=== PATIENT | female | born 1995 | race American Indian/Alaskan Native ===

== ENCOUNTER 2020-07-22 19:56 | Emergency (ER) | payer OTHER ==
[~2020-07-22] VITALS: Ht 162.6 cm; Wt 113.4 kg
--- OUTSIDE RECORDS SUMMARY | ~2020-07-22 | XMS | Encounter Summary ---
Demographics + + + | Address | [address] | | | [place] [address] | + + + | Home Phone | | + + + | Preferred Language | Unknown | + + + | Marital Status | Single | + + + | Anglican Affiliation | Unknown | + + + | Race | or | + + + | Ethnic Group | Not or | + + + Author + + + | Author | [facility] | + + + | Organization | [facility] | + + + | Address | Unknown | + + + | Phone | Unavailable | + + + Support + + +---------+ + | Name | Relationship | Address | Phone | + + +---------+ + | Lorie Teran | ECON | Unknown | | + + +---------+ + Care Team Providers + +------+ + | Care Retail Salesman Name | Role | Phone | + +------+ + | Tereza Mahan | PCP | | + +------+ + Reason for Visit + + + | Reason | Comments | + + + | Gas-permeable | | | contact lens | | + + + Office Visit - E/M Services (Routine) +--------+--------+ + + + + | Status | Reason | Specialty | Diagnoses / | Referred By | Referred To | | | | | Procedures | Contact | Contact | +--------+--------+ + + + + | Closed | | Ophthalmology | Diagnoses | Oc, | Oc, | | | | | | Abraham J, OD | Abraham J, OD | | | | | Keratoconus, | [address] | [address] | | | | | unspecified | Ave | Ave | | | | | | [place], [place] | [place], [place] | | | | | | [address] | [address] | | | | | | Phone: | Phone: | | | | | | [phone] | [phone] | | | | | | Fax: | Fax: | | | | | | [phone] | [phone] | +--------+--------+ + + + + Encounter Details +--------+---------+ + + + | Date | Type | Department | Care Team | Description | +--------+---------+ + + + | 01/27/ | Office | [facility] | Chacorta Vincent, OD | Keratoconus, | | 2013 | Visit | [place] | [address] | unspecified (Primary | | | | ogy at [facility] [address] | [place], [place] | Dx); Irregular | | | | [address] [facility] for | [address] | astigmatism | | | | Health and Healing, | [phone] | | | | | [facility] | | | | | | Floor [place], [place] | | | | | | [address] | | | | | | [phone] | | | +--------+---------+ + + + Social History + +-------+ +--------+------+ | Tobacco Use | Types | Packs/Day | Years | Date | | | | | Used | | + +-------+ +--------+------+ | Never Assessed | | | | | + +-------+ +--------+------+ + + + | Sex Assigned at | Date Recorded | | | | + + + | Not on file | | + + + documented as of this encounter Progress Notes Chacorta Vincent, OD - 01/27/2014 2:22 PM PDT 09/30/2013 NS #2 Lens design Rx OAD/CT OZ PC1/Corneal zone PC2/Limbal zone PC3/Scleral zone PC4/Edg e zone material Tint RE Robb 46.00 -9.00 15.80 8.40 7.54 (1.7) 8.7 (0.9) 12.75 (0.7) 14.25 (0.4) Shawnee-97 (plasma) clear LE Robb 46.50 -9.50 15.80 8.40 7.46 (1.7) 8.7 (0.9) 12.75 (0.7) 14.25 (0.4) Shawnee-97 (plasma) blue Lens Method Consultant: [facility] 5.5 hours of wear; OR VA Fit OD +0.50 20/maybe bolder? 100-150 central; 50 midperipheral vaulting over limbus, mucus patrick ris, scleral alignment, tear exchange present OS +-0.50 20/NI 100-150 central and midperipheral clearance, no touch, vaulting over apex; mucus patrick ris,scleral alignment, tear exchange present FINAL: Lens design Rx OAD/CT OZ PC1/Corneal zone PC2/Limbal zone PC3/Scleral zone PC4/Edg e zone material Tint RE Robb 46.00 -9.00 15.80 8.40 7.54 (1.7) 8.7 (0.9) 12.75 (0.7) 14.25 (0.4) Shawnee-97 (plasma) clear LE [place] 46.50 -9.50 15.80 8.40 7.46 (1.7) 8.7 (0.9) 12.75 (0.7) 14.25 (0.4) Shawnee-97 (plasma) blue Lens Method Consultant: [facility] Chief Complaint Patient presents with Gas-permeable contact lens Received new left lens one week; feels much better and more comfortable to wear all day; v ision is clear and stable; no other changes; returning left lens #1 today No ophthamicAgents medications on file See EPIC notes for Ophthalmology Exam Findings Reviewed systems for: fever, wt. loss, ENT, cardiovascular, pulmonary, GI, urinary, neurolo gic, endocrine, bleeding/blood disorders, AIDS/HIV, cancer/tumors, arthritis - all were nega tive except as noted above. 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 Finalized CLRx today, no adjustments to parameters necessary. Returned left lens #1 toda y under warranty exchange. Followup in 6months-1 year for cornea and lens evaluation with le nses applied on. Continue followup with Maxwell per his recommendations. documented in this encounter Miscellaneous Notes Scan - Other, Faculty - 02/06/2014 3:47 PM PDTElectronically signed by Faculty Other at 3:47 PM PDTdocumented in this encounter Plan of Treatment Not on filedocumented as of this encounter Visit Diagnoses + + | Diagnosis | + + | Keratoconus, unspecified - Primary | + + | Irregular astigmatism | + + documented in this encounter"
--- OUTSIDE RECORDS SUMMARY | ~2020-07-22 | XMS | Encounter Summary ---
Demographics + + + | Address | [address] | | | [place] [address] | + + + | Home Phone | | + + + | Preferred Language | Unknown | + + + | Marital Status | Single | + + + | Rastafarian Affiliation | [id number] | + + + | Race | Unknown | + + + | Ethnic Group | Unknown | + + + Author + + + | Author | [facility] | | | and [place] | + + + | Organization | [facility] | | | and [place] | + + + | Address | Unknown | + + + | Phone | Unavailable | + + + Support + + +---------+ + | Name | Relationship | Address | Phone | + + +---------+ + | Lorie L Teran | ECON | Unknown | | + + +---------+ + Care Team Providers + +------+ + | Care Ecologist Name | Role | Phone | + +------+ + | Lexis Verdugo NP | PCP | | + +------+ + Reason for Visit Auth/Cert +--------+--------+ + + + + | Status | Reason | Specialty | Diagnoses / | Referred By | Referred To | | | | | Procedures | Contact | Contact | +--------+--------+ + + + + | | | | Diagnoses | | | | | | | Laceration | | | | | | | Procedures | | | | | | | Laceration | | | | | | | Repair | | | +--------+--------+ + + + + Encounter Details +--------+ + + + + | Date | Type | Department | Care Team | Description | +--------+ + + + + | 11/07/ | Anesthesia | [facility] | Andrea Grande | | | 2017 | Event | MED [facility] OP | MD Julio [address] | | | | | [address] | [facility] | | | | | [place] | [place] [address] | | | | | [address] | [phone] | | | | | [phone] | | | +--------+ + + + + Anesthesia Record + + + + + | Procedure Name | Responsible | Anesthesia Start | Anesthesia Stop Time | | | Anesthesiologist | Time | | + + + + + | Vaginal Laceration | Andrea Kim | 11/07/17 1646 | 11/07/17 1804 | | Repair (N/A Vagina ) | MD Harjinder | | | + + + + + +----+---+ + + | Da | T | Event | Comment | | te | i | | | | | m | | | | | e | | | +----+---+ + + | 12 | 1 | | | | /2 | 6 | | | | 7/ | 4 | | | | 20 | 0 | | | | 17 | | | | +----+---+ + + | | 1 | An Checkout | Pre-use anesthesia machine/equipment checkout. | | | 6 | | | | | 4 | | | | | 5 | | | +----+---+ + + | | 1 | An Start | Reassessment prior to anesthesia induction/procedure. | | | 6 | | | | | 4 | | | | | 6 | | | +----+---+ + + | | 1 | AN | Per surgeon request - already received prophylaxis throughout | | | 6 | Antibiotic | labor | | | 5 | declined | | | | 0 | | | +----+---+ + + | | 1 | Preoxygenat | | | | 6 | ed | | | | 5 | | | | | 0 | | | +----+---+ + + | | 1 | an afshin now | | | | 6 | | | | | 5 | | | | | 2 | | | +----+---+ + + | | 1 | An | | | | 6 | Induction | | | | 5 | | | | | 4 | | | +----+---+ + + | | 1 | an afshin now | | | | 6 | | | | | 5 | | | | | 8 | | | +----+---+ + + | | 1 | Pre-Procedu | | | | 6 | ral Timeout | | | | 5 | Completed | | | | 9 | | | +----+---+ + + | | 1 | First | | | | 7 | Inc/Proc St | | | | 0 | | | | | 1 | | | +----+---+ + + | | 1 | an afshin now | | | | 7 | | | | | 1 | | | | | 1 | | | +----+---+ + + | | 1 | Breathing | | | | 7 | Spontaneous | | | | 5 | ly | | | | 1 | | | +----+---+ + + | | 1 | an stop | | | | 7 | data | | | | 5 | | | | | 1 | | | +----+---+ + + | | 1 | Quick Note | Pt transported directly to L&D | | | 7 | | | | | 5 | | | | | 5 | | | +----+---+ + + | | 1 | Quick Note | RNs desire patient to be taken to post-partem room in 358 | | | 7 | | | | | 5 | | | | | 9 | | | +----+---+ + + | | 1 | Quick Note | Sign out given to RN | | | 8 | | | | | 0 | | | | | 3 | | | +----+---+ + + | | 1 | An Stop | Patient handed off to recovery nurse. | | | 0 | | | | | 4 | | | +----+---+ + + +------+ | Meds | +------+ + + + | Name | Total | + + + | propofol (DIPRIVAN) injection | 145 mg | | (bolus) (20 mL) | | + + + | propofol | 570.7 mg | + + + | lidocaine 1% | 50 mg | + + + | metoprolol | 5 mg | + + + | LR (Infusion) | 500 mL | + + + + + | Name | + + | N2O Flow Rate (L/Min) | + + | O2 Flow Rate (L/Min) | + + | Insp O2 | + + | Exp SEV | + + | Air Flow Rate (L/Min) | + + + + | No blood administrations on file. | + + +--------+ + + + | Type | Details | Placement | Removal | +--------+ + + + | Periph | 11/07/17; 1430; Right; Forearm; | 11/07/17 1430 by | 11/08/17 1210 by | | eral | 18 gauge; 11/08/17; 1210 (cath | Celena Valentin RN | Celena Valentin RN | | IV | tip tintact. infiltrated) | | | | Line - | | | | | | | | | | Double | | | | | Lumen | | | | +--------+ + + + | Read | 11/07/17; 1713; perineum; healing | 11/07/17 1713 by | 11/09/17 1600 by | | only - | within expectations; 11/09/17; | Yany Pickett RN | Dominga Rodriguez RN | | | 1600 | | | | Incisi | | | | | on | | | | +--------+ + + + | Urethr | 11/07/17; 174; indicated due to | 11/07/17 174 by | 11/08/17 0948 by | | al | specific surgical procedure; All | Yany Pickett RN | Celena Valentin RN | | Cathet | elements; All elements; All | | | | er | elements; indwelling double lumen | | | | | catheter; latex; 14; None; 1; 5; | | | | | 10; none; drainage bag to | | | | | dependent drainage; short term | | | | | use; 11/08/17; 0948 | | | +--------+ + + + documented in this encounter Social History + +-------+ +--------+------+ | Tobacco Use | Types | Packs/Day | Years | Date | | | | | Used | | + +-------+ +--------+------+ | Never Smoker | | | | | + +-------+ +--------+------+ + +---+---+---+ | Smokeless Tobacco: | | | | | Never Used | | | | + +---+---+---+ + + +---------+ + | Alcohol Use | Drinks/Week | oz/Week | Comments | + + +---------+ + | No | | | | + + +---------+ + + + + | Sex Assigned at | Date Recorded | | | | + + + | Not on file | | + + + documented as of this encounter OR Notes Anesthesia Postprocedure Evaluation - Andrea Grande MD - 11/07/2017 6:08 PM PSTFo rmatting of this note might be different from the original. ANESTHESIA POSTANESTHESIA EVALUATION Juanita BlumAlberto 22 y.o. female 1995 [id number] Procedure(s) Vaginal Laceration Repair (N/A Vagina ) Cooperates? Yes Mental Status Performs simple tasks. Respiratory Satisfactory - Airway patent (self maintained). Cardiovascular Satisfactory - Blood pressure and heart rate acceptable Temperature Satisfactory Pain Satisfactory N/V Control Satisfactory Hydration Satisfactory - No signs of dehydration Complications None apparent Vitals: 11/07/17 0827 11/07/17 1115 BP: 114/59 129/70 Pulse: 87 70 Temp: 36 C (96.8 F) 37 C (98.6 F) Resp: 18 16 SpO2: 99% 100% Electronically signed by Andrea Grande MD 11/07/2017 18:08 [facility] Andrea Grande MD a t 11/07/2017 6:08 PM PSTAnesthesia Preprocedure Evaluation - Andrea Grande MD - 4:37 PM PST ANESTHESIA PREANESTHESIA EVALUATION Juanita Donaldson Jose 22 y.o. female 1995 [id number] Procedure(s): Laceration Repair (N/A Cervix) Medical history, anesthesia, medications, allergy, NPO status verified histories reviewed. Labs reviewed. Review of Systems / Med History Anesthesia History Never had anesthesia before. Cardiovascular , Exercise tolerance >4 METS Pulmonary (-) smoking history(+) sleep apnea: at risk Neurology Negative except where noted below. Psychology Negative except where noted below. Renal Negative except where noted below. Endocrine (+) obesity: morbid BMI 40+ Obstetrics S/p vaginal delivery ~1hr ago. (-) pre-eclampsia, eclampsia, gestational hypertension Other Lab Results Component Value Date WBC 15.0 (H) 11/07/2017 HGB 12.2 11/07/2017 HCT 37.8 11/07/2017 MCV 78.8 (L) 11/07/2017 PLT 333 11/07/2017 . (-) anemia, thrombocytopenia Physical Exam Airway MP IV, TM >3 FB, Mouth opening >2 FB. Neck: full ROM, extends >30 degrees. Jaw protrus ion normal. Dental Grossly normal except where noted below.; (+) Age appropriate dentition. CV cardiovascular normal Rhythm regular. Rate normal. Pulm Clear to auscultation bilaterally. (-) wheezing and rhonchi. Neuro Grossly normal. Anesthesia Plan ASA 3E Type: MAC. Induction: Intravenous. Potential problems: None anticipated. Monitors: Standard ASA monitors. Consent statement:Anesthetic plan, alternatives, risks and benefits discussed with patient. Risks discussed included (but were not limited to): pain, respiratory events, dental injury , muscle aches, perioperative CV events, sore throat, nausea, voice injury (All questions an swered before proceeding to OR), . Consenting person understands and agrees to proceed. PARQ. Plan for MAC/TIVA at the explicit request of patient. She does not want a spinal or general anesthetic "with a breathing tube" unless "absolutely necessary." I spent roughly 5 minutes reviewing the risks of aspiration in this setting given her clear liquid intake and pregnan cy-induced risk factors. Even with this knowledge, she wishes to proceed with sedation and Linda Morales believes he can be successful with this anesthetic technique. I further explained t hat if she does not tolerate the procedure with this level of anesthesia, my back up plan an d absolute necessity would be to convert to another anesthetic such as spinal or GETA. Chasity cleaning, I explained that if there are any worrisome signs of aspiration - I would need to co nvert to GETA. She consents to this and states she will because it would be "the last resort .". documented in t his encounter Plan of Treatment Not on filedocumented as of this encounter Visit Diagnoses Not on filedocumented in this encounter Administered Medications + +---------+ +------+------+------+ | Medication Order | MAR | Action | Dose | Rate | Site | | | Action | Date | | | | + +---------+ +------+------+------+ | lactated ringers (LR) infusion | New Bag | 11/07/20 | | | | | Intravenous, CONTINUOUS PRN, | | 17 4:46 | | | | | Starting Sun11/07/17 at 1646, | | PM PST | | | | | Anesthesia Intra-op | | | | | | + +---------+ +------+------+------+ +---+---+ | | | +---+---+ + +-------+ +-------+---+---+ | lidocaine (PF) 1% injection | Given | 11/07/20 | 50 mg | | | | Intravenous, PRN, Starting Sun | | 17 4:53 | | | | | 11/07/17 at 1653, Anesthesia | | PM PST | | | | | Intra-op | | | | | | + +-------+ +-------+---+---+ +---+---+ | | | +---+---+ + +-------+ +------+---+---+ | metoprolol tartrate (LOPRESSOR) | Given | 11/07/20 | 1 mg | | | | injection Intravenous, PRN, | | 17 5:34 | | | | | Starting 11/07/17 at 1711, | | PM PST | | | | | Anesthesia Intra-op | | | | | | + +-------+ +------+---+---+ +-------+ +------+---+---+ | Given | 11/07/20 | 2 mg | | | | | 17 5:29 | | | | | | PM PST | | | | +-------+ +------+---+---+ | Given | 11/07/20 | 2 mg | | | | | 17 5:11 | | | | | | PM PST | | | | +-------+ +------+---+---+ +---+---+ | | | +---+---+ + +-------+ +-------+---+---+ | propofol (DIPRIVAN) injection | Given | 11/07/20 | 20 mg | | | | Intravenous, PRN, Starting Wed | | 17 5:36 | | | | | 11/07/17 at 1654, Anesthesia | | PM PST | | | | | Intra-op | | | | | | + +-------+ +-------+---+---+ +-------+ +-------+---+---+ | Given | 11/07/20 | 25 mg | | | | | 17 5:10 | | | | | | PM PST | | | | +-------+ +-------+---+---+ | Given | 11/07/20 | 20 mg | | | | | 17 4:59 | | | | | | PM PST | | | | +-------+ +-------+---+---+ +---+---+ | | | +---+---+ + + + + + +---+ | propofol (DIPRIVAN) injection | Rate/Dos | 11/07/20 | 100 | 78 mL/hr | | | Intravenous, CONTINUOUS PRN, | e Change | 17 5:27 | mcg/kg/m | | | | Starting 11/07/17 at 1653, | | PM PST | in | | | | Anesthesia Intra-op | | | | | | + + + + + +---+ + + + + +---+ | Rate/Dose Change | 11/07/20 | 120 | 93.6 | | | | 17 5:05 | mcg/kg/m | mL/hr | | | | PM PST | in | | | + + + + +---+ | Rate/Dose Change | 11/07/20 | 100 | 78 mL/hr | | | | 17 4:59 | mcg/kg/m | | | | | PM PST | in | | | + + + + +---+ +---+---+ | | | +---+---+ documented in this encounter
--- OUTSIDE RECORDS SUMMARY | ~2020-07-22 | XMS | Clinical Summary ---
Demographics + + + | Address | [address] | | | [place] [address] | + + + | Home Phone | | + + + | Preferred Language | Unknown | + + + | Marital Status | Single | + + + | Restorationist Affiliation | 1073 | + + + | Race | Unknown | + + + | Ethnic Group | Unknown | + + + Author + + + | Author | [facility] | | | and [place] | + + + | Organization | [facility] | | | and [...] Team Providers + +------+ + | Care Industrial Technology Teacher Name | Role | Phone | + +------+ + | Lexis Verdugo NP | PCP | | + +------+ + Allergies No Known Allergies Medications + + + +---------+------+------+-------+ | Medication | Sig | Dispensed | Refills | Star | End | Statu | | | | | | t | Date | s | | | | | | Date | | | + + + +---------+------+------+-------+ | 27-0.8 mg | Take 1 tablet by | | 0 | | | Activ | | multivitamin tablet | mouth Twice daily | | | | | e | | | breakfast/Bedtime. | | | | | | + + + +---------+------+------+-------+ | | Take 1-2 tablets by | 20 | 0 | 12/2 | | Activ | | HYDROcodone-acetamin | mouth every 4 hours | tablet | | 9/20 | | e | | ophen (NORCO) 5-325 | as needed for Pain. | | | 17 | | | | mg per tablet | | | | | | | + + + +---------+------+------+-------+ | ibuprofen | Take 1 tablet by | 60 | 0 | 12/2 | | Activ | | (ADVIL,MOTRIN) 600 | mouth every 6 hours | tablet | | 9/20 | | e | | MG tablet | as needed for Pain. | | | 17 | | | + + + +---------+------+------+-------+ | docusate sodium | Take 200 mg by mouth | 30 | 0 | 12/2 | | Activ | | (COLACE) 100 MG | nightly. | capsule | | 9/20 | | e | | capsule | | | | 17 | | | + + + +---------+------+------+-------+ Active Problems + + + | Problem | Noted Date | + + + | Laceration of vagina, initial encounter | 11/07/2017 | + + + + + | Overview: After vaginal delivery 11/07 - required repair in | | the OR under anesthesia | + + Immunizations + + + + | Name | Administration Dates | Next Due | + + + + | MMR, 2 DOSE | 11/07/2017 (Deferred: - immune) | | | (PED/ADULT) | | | + + + + | RHO (D) IMMUNE | 11/07/2017 (Deferred: - o+) | | | GLOBULIN | | | + + + + | TDAP, (ADOL/ADULT) | 11/07/2017 (Deferred: - given 10/10/17) | | + + + + Social History + +-------+ [...] on file | | + + + Last Filed Vital Signs + + + + + | Vital Sign | Reading | Time Taken | Comments | + + + + + | Blood Pressure | 96/55 | 11/09/2017 8:00 AM | | | | | PST | | + + + + + | Pulse | 94 | 11/09/2017 8:00 AM | | | | | PST | | + + + + + | Temperature | 37 C (98.6 F) | 11/09/2017 8:00 AM | | | | | PST | | + + + + + | Respiratory Rate | 20 | 11/09/2017 8:00 AM | | | | | PST | | + + + + + | Oxygen Saturation | 97% | 11/08/2017 7:50 PM | | | | | PST | | + + + + + | Inhaled Oxygen | - | - | | | Concentration | | | | + + + + + | Weight | - | - | | + + + + + | Height | - | - | | + + + + + | Body Mass Index | - | - | | + + + + + Plan of Treatment + + +-------+ + | Health Maintenance | Due Date | Last | Comments | | | | Done | | + + +-------+ + | Vaccine: HPV (1 - | | | | | 2-dose series) | 5 | | | + + +-------+ + | Vaccine: | | | | | Dtap/Tdap/Td (1 - | 3 | | | | Tdap) | | | | + + +-------+ + | Cervical Cancer | | | | | Screening (Pap) | 5 | | | + + +-------+ + | Vaccine: Influenza | | | | | (#1) | 0 | | | + + +-------+ + Results Not on filefrom Last 3 Months Insurance + +--------+ +--------+ +---------+--------+ | Payer | Benefi | Subscriber | Effect | Phone | Address | Type | | | t Plan | ID | jesse | | | | | | / | | Dates | | | | | | Group | | | | | | + +--------+ +--------+ +---------+--------+ | [employer] | [employer] | [id number] | | [phone] | | Medica | | MEDICAID HMO | HEALTH | | [phone]-[id number] | 1 | | id | | | MDCD | | esent | | | | | | [place] | | | | | | + +--------+ +--------+ +---------+--------+ + +--------+ +--------+ + + | Guarantor Name | Accoun | Relation to | Date | Phone | Billing Address | | | t Type | Patient | of | | | | | | | | | | + +--------+ +--------+ + + | Robert Garcia | Person | Self [birth year] | [address] | | n M | al/Fam | | 1994 | [phone] | [place] [address] | | | juliana | | | 5 (Home) | | + +--------+ +--------+ + + | Robert Garcia | Person | Self | [birth year] | [address] | | n M | al/Fam | | 1994 | [phone] | [place] [address] | | | juliana | | | 5 (Home) | | + +--------+ +--------+ + + Advance Directives + + + + + | Type | Date Recorded | Patient | Explanation | | | | Health Clinician | | + + + + + | Power of | | | | | Carton Gluing Machine Operator | | | | + + + + + | Advance | 11/09/2017 | | | | Directive | 10:49 AM | | | + + + + + + + + + + | Code Status | Date | Date | Comments | | | Activated | Inactivated | | + + + + + | Full Code | 11/07/2017 | 11/07/2017 | | | | 2:29 PM | 6:42 PM | | + + + + +"
--- OUTSIDE RECORDS SUMMARY | ~2020-07-22 | XMS | Encounter Summary ---
Demographics + + + | Address | [address] | | | [place] [address] | + + + | Home Phone | | + + + | Preferred Language | Unknown | + + + | Marital Status | Single | + + + | Protestant Affiliation | Unknown | + + + | Race | or | + + + | Ethnic Group | Not or | + + + Author + + + | Author | [facility] | + + + | Organization | [facility] | + + + | Address | Unknown | + + + | Phone | Unavailable | + + + Support + + +---------+ + | Name | Relationship | Address | Phone | + + +---------+ + | Lorie Teran | ECON | Unknown | | + + +---------+ + Care Team Providers + +------+ + | Care Guest Service Representative Name | Role | Phone | + +------+ + | Marc Agee MD | PCP | | + +------+ + Reason for Visit + + + | Reason | Comments | + + + | Medical Eye | | | Examination | | + + + Consultation (Routine) +--------+--------+ + + + + | Status | Reason | Specialty | Diagnoses / | Referred By | Referred To | | | | | Procedures | Contact | Contact | +--------+--------+ + + + + | Closed | | Ophthalmology | | | Joseph, | | | | | | Matt, | Ellis, OD | | | | | | Dago D, | [address] | | | | | | MD [address] | | | | | | Hema | [facility] [place] | | | | | | Blvd | [address] | | | | | | [place], [place] | | | | | | | [address] | | | | | | | Phone: | | | | | | | [phone] | | | | | | | Fax: | | | | | | | [phone] | | +--------+--------+ + + + + Encounter Details +--------+---------+ + + + | Date | Type | Department | Care Team | Description | +--------+---------+ + + + | 03/15/ | Office | [facility] | Madhuri Ceron, OD | Keratoconus of both | | 2018 | Visit | [place]/[facility] | | eyes (Primary Dx) | | | | ogy at [facility] [address] [facility] | | | | | [facility], | | | | | | Building | | | | | | Floor [place], [place] | | | | | | [address] | | | | | | [phone] | | | +--------+---------+ + + + Social History + +-------+ +--------+------+ | Tobacco Use | Types | Packs/Day | Years | Date | | | | | Used | | + +-------+ +--------+------+ | Never Smoker | | | | | + +-------+ +--------+------+ + + +---------+ + | Alcohol Use | Drinks/Week | oz/Week | Comments | + + +---------+ + | No | 0 Standard drinks | 0.0 | | | | or equivalent | | | + + +---------+ + + + + | Sex Assigned at | Date Recorded | | | | + + + | Not on file | | + + + documented as of this encounter Progress Notes OsmanyMadhuri, OD - 03/15/2018 2:30 PM PDTFormatting of this note might be different from t he original. Dx#1 KV Lens design bc Rx OAD/CT OZ LCZ SLZ material Tint RE Custom Stable Elite 46.50 -11.50 15.8 1 flat +3/-2 extra clear LE Custom Stable Elite 46.00 -10.75-1.58b262 Toric Anil @30R 15.8 stand +3/-2 extra Blue Lens Clinical Researcher: Saulo Contax [place] VA Fit OD -0.50 20/40+3 300central clearance, central nasal over hydrops scar possible touch, ma rkings 60 deg left, edge lift adequate OS -0.50 subjective improvement 250 central clearance, markings 30 deg right, limbal zone, edge lift adeqaute 360 Chief Complaint Patient presents with Medical Eye Examination 22yo F c h/o KCN OU presents for scleral contact lens follow up. Using Carmen Simplus to clean, filling with Addipak. Able to wear lenses 10 hours, sometime will take out in Middle of day to clean and put the m back in OD vision excellent, OS intermittent blur occasionally, not every day. No ophthamicAgents medications on file ASSESSMENT: 1. 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 h/o Hydrops OU , apical scar OU - Last seen and diagnosed with hydrops OD on 05/25/[address] Gutierrez - Hydrops resolved, residual scar ou - pt is content with vision wants to continue with contact lenses Recent Hydrops OS (05/2017)--seen by Roberto López who reinitiation cylopleia and topical pre d now with impressive linear scar and Descemet tear OS-- now resolved 3. H/o Systemic Allergies - Eczema around both eyes 4. Anterior segment healthy, no contraindications to CL wear PLAN: 1. Order new GP lens(es) per below. Ship to patient - Patient understand that the previou s lens must be returned to us to receive credit or be charged an additional cost for lenses 2. Continue Azelastine BID OU. FOLLOW-UP: RTC 1 year for CL eval or PRN Madhuri Ceron, [place] [address]308AT Dx#2 KV Lens design bc Rx OAD/CT OZ LCZ SLZ material Tint RE Custom Stable Elite 46.50 -12.50 15.8 1 flat +3/-2 extra clear LE Custom Stable Elite 46.00 -11.25-1.70x806 Toric Anil @30R 15.8 stand +3/-2 extra Blue Lens Clinical Researcher: Saulo Laura documented in this enc ounter Plan of Treatment Not on filedocumented as of this encounter Visit Diagnoses + + | Diagnosis | + + | Keratoconus of both eyes - Primary Keratoconus, unspecified | + + documented in this encounter"
--- OUTSIDE RECORDS SUMMARY | ~2020-07-22 | XMS | Encounter Summary ---
Demographics + + + | Address | [address] | | | [place] [address] | + + + | Home Phone | | + + + | Preferred Language | Unknown | + + + | Marital Status | Single | + + + | Congregational Affiliation | Unknown | + + + | Race | or | + + + | Ethnic Group | Not or | + + + Author + + + | Author | [facility] | + + + | Organization | [facility] | + + + | Address | Unknown | + + + | Phone | Unavailable | + + + Support + + +---------+ + | Name | Relationship | Address | Phone | + + +---------+ + | Lorie Teran | ECON | Unknown | | + + +---------+ + Care Team Providers + +------+ + | Care Bead Wrapper Name | Role | Phone | + +------+ + | Marc Agee MD | PCP | | + +------+ + Reason for Visit + +--------+ + | Reason | Onset | Comments | | | Date | | + +--------+ + | Refill Request | 02/12/ | | | | 2019 | | + +--------+ + Encounter Details +--------+--------+ + + + | Date | Type | Department | Care Team | Description | +--------+--------+ + + + | 04/03/ | Refill | [facility] | Abraham Renae, OD | Refill Request | | 2019 | | [place]/[facility]mol | [address] | | | | | ogy at [facility] [address] | [place], [place] | | | | | [facility] | [address] | | | | | Health and Healing, | [phone] | | | | | | | | | | | Floor [place], [place] | | | | | | [address] | | | | | | [phone] | | | +--------+--------+ + + + Social History + +-------+ [...] + + documented as of this encounter Plan of Treatment Not on filedocumented as of this encounter Visit Diagnoses Not on filedocumented in this encounter"
--- OUTSIDE RECORDS SUMMARY | ~2020-07-22 | XMS | Encounter Summary ---
Demographics + + + | Address | [address] | | | [place] [address] | + + + | Home Phone | | + + + | Preferred Language | Unknown | + + + | Marital Status | Single | + + + | Mormon Affiliation | Unknown | + + + | Race | or | + + + | Ethnic Group | Not or | + + + Author + + + | Author | [facility] | + + + | Organization | [facility] | + + + | Address | Unknown | + + + | Phone | Unavailable | + + + Support + + +---------+ + | Name | Relationship | Address | Phone | + + +---------+ + | Lorie Teran | ECON | Unknown | | + + +---------+ + Care Team Providers + +------+ + | Care Mgmt Consultant Name | Role | Phone | + +------+ + | Tereza Mahan | PCP | | + +------+ + Encounter Details +--------+ + + + + | Date | Type | Department | Care Team | Description | +--------+ + + + + | 12/16/ | Document-Sc | UNKNOWN DEPARTMENT | Unknown . | | | 2015 | anned | [address] | | | | | | [address] | | | | | | [place], [place] | | | | | | [address] | | | +--------+ + + + + Social History + [...] + + documented as of this encounter Miscellaneous Notes Scan - Albin Faculty - 12/17/2014 7:34 AM PSTElectronically signed by Kym Talamantes at 7:34 AM PSTdocumented in this encounter Plan of Treatment Not on filedocumented as of this encounter Visit Diagnoses Not on filedocumented in this encounter"
--- OUTSIDE RECORDS SUMMARY | ~2020-07-22 | XMS | Clinical Summary ---
Demographics + + + | Address | [address] | | | [place] [address] | + + + | Home Phone | | + + + | Preferred Language | Unknown | + + + | Marital Status | Single | + + + | Hinduism Affiliation | Unknown | + + + | Race | or | + + + | Ethnic Group | Not or | + + + Author + + + | Author | [facility] | + + + | Organization | [facility] | + + + | Address | Unknown | + + + | Phone | Unavailable | + + + Support + + +---------+ + | Name | Relationship | Address | Phone | + + +---------+ + | Lorie Teran | ECON | Unknown | | + + +---------+ + Care Team Providers + +------+ + | Care Key Cutter Name | Role | Phone | + +------+ + | Phuong MartinoP | PCP | | + +------+ + Source Comments SP is fully live on both [facility] and [facility] Allergies No Known Allergies Medications + + + +---------+------+------+-------+ | Medication | Sig | Dispensed | Refills | Star | End | Statu | | | | | | t | Date | s | | | | | | Date | | | + + + +---------+------+------+-------+ | sodium chloride | Use one or two (5 | 5 mL | 3 | 04/0 | | Activ | | 0.9 % inhalation | mL) ampule/day for | | | 3/20 | | e | | solution for | the application of | | | 19 | | | | nebulization | scleral lens(es). | | | | | | + + + +---------+------+------+-------+ Active Problems + + + | Problem | Noted Date | + + + | Eczematous dermatitis of eyelids of both eyes | 01/04/2018 | + + + | Laceration of vagina | 11/07/2017 | + + + + + | Overview: Overview: After vaginal delivery 11/07 - required | | repair in the OR under anesthesia | + + + + + | Keratoconus of both eyes | 09/05/2013 | + + + + + | Overview: ICD10 | + + Resolved Problems + + + + | Problem | Noted | Resolved | | | Date | Date | + + + + | Irregular astigmatism | 09/30/20 | | | | 13 | 6 | + + + + Family History + + +------+ + | Medical History | Relation | Name | Comments | + + +------+ + | Cancer | Mother | | | + + +------+ + | Additional Family | Neg Hx | | great great grandfather, Glaucoma | | History | | | | + + +------+ + + +------+--------+ + | Relation | Name | Status | Comments | + +------+--------+ + | Mother | | | | + +------+--------+ + Social History + +-------+ +--------+------+ | [...] + + + Last Filed Vital Signs Not on file Plan of Treatment + + + + + | Health Maintenance | Due Date | Last | Comments | | | | Done | | + + + + + | Influenza (Flu) | | 09/03/20 | | | vaccination (#1) | 0 | 19, | | | | | 08/08/20 | | | | | 17, | | | | | 09/01/20 | | | | | 14, | | | | | Addition | | | | | al | | | | | history | | | | | exists | | + + + + + | Pneumococcal | Aged Out | | No longer eligible based on patient's age | | vaccination | | | to complete this topic | + + + + + Results Not on filefrom Last 3 Months Insurance + +--------+ +--------+-------+---------+--------+ | Payer | Benefi | Subscriber | Effect | Phone | Address | Type | | | t Plan | ID | jesse | | | | | | / | | Dates | | | | | | Group | | | | | | + +--------+ +--------+-------+---------+--------+ | [employer] | [employer] | [id number] | 05/12/20 | | | Medica | | | [place] | | 17-Pre | | | id | | | [place] | | sent | | | | + +--------+ +--------+-------+---------+--------+ | [facility] | | [id number] | 11/12/19 | | | Agency | | SERVICE | | | 14-Pre | | | | | | HEALTH | | sent | | | | | | | | | | | | | | SERVIC | | | | | | | | E | | | | | | + +--------+ +--------+-------+---------+--------+ + +--------+ +--------+ + + | Guarantor Name | Accoun | Relation to | Date | Phone | Billing Address | | | t Type | Patient | of | | | | | | | | | | + +--------+ +--------+ + + | Robert Garcia | Person | Self | [birth year] | | [address] | | n | al/Fam | | 1994 | [address] | [place] [address] | | | juliana | | | 7 (Home) | | + +--------+ +--------+ + + | Robert Garcia | Agency | Self | [birth year] | | [address] | | n | | | 1994 | | [place] [address] | | | | | | 7 (Home) | | + +--------+ +--------+ + +"
--- OUTSIDE RECORDS SUMMARY | ~2020-07-22 | XMS | Encounter Summary ---
Demographics + + + | Address | [address] | | | [place] [address] | + + + | Home Phone | | + + + | Preferred Language | Unknown | + + + | Marital Status | Single | + + + | Sikh Affiliation | 1073 | + + + | Race | Unknown | + + + | Ethnic Group | Unknown | + + + Author + + + | Author | [facility] | | | and [facility] | + + + | Organization | [facility] | | | [...] Team Providers + +------+ + | Care Negotiator Sales Name | Role | Phone | + +------+ + PCP | Unavailable | + +------+ + Encounter Details +--------+ + + + + | Date | Type | Department | Care Team | Description | +--------+ + + + + | 04/04/ | Hospital | [facility] | | | | 1993 - | Encounter | [facility] | | | | | | [address] | | | | 04/05/ | | [place] [address] | | | | 1993 | | [phone] | | | +--------+ + + + [...]
--- OUTSIDE RECORDS SUMMARY | ~2020-07-22 | XMS | Encounter Summary ---
Demographics + + + | Address | [address] | | | [place] [address] | + + + | Home Phone | | + + + | Preferred Language | Unknown | + + + | Marital Status | Single | + + + | Caodaism Affiliation | Unknown | + + + | Race | or | + + + | Ethnic Group | Not or | + + + Author + + + | Organization | Unknown | + + + | Address | Unknown | + + + | Phone | Unavailable | + + + Support + + +---------+ + | Name | Relationship | Address | Phone | + + +---------+ + | Lorie Teran | ECON | Unknown | | + + +---------+ + Care Team Providers + +------+ + | Care Ore Miner Name | Role | Phone | + +------+ + | Phuong Martino SAEED | PCP | | + +------+ + Encounter Details +--------+--------+ + + + | Date | Type | Department | Care Team | Description | +--------+--------+ + + + | 01/06/ | Travel | | | | | 2020 | | | | | +--------+--------+ + + + [...]
--- OUTSIDE RECORDS SUMMARY | ~2020-07-22 | XMS | Encounter Summary ---
Demographics + + + | Address | [address] | | | [place] [address] | + + + | Home Phone | | + + + | Preferred Language | Unknown | + + + | Marital Status | Single | + + + | Sabianist Affiliation | Unknown | + + + | Race | or | + + + | Ethnic Group | Not or | + + + Author + + + | Author | [email or web address] | + + + | Organization | [facility] | + + + | Address | Unknown | + + + | Phone | Unavailable | + + + Support + + +---------+ + | Name | Relationship | Address | Phone | + + +---------+ + | Lorie Teran | ECON | Unknown | | + + +---------+ + Care Team Providers + +------+ + | Care Instructor Military Science Name | Role | Phone | + +------+ + | Marc Agee MD | PCP | | + +------+ + Reason for Visit + + + | Reason | Comments | + + + | Follow-up visit | | + + + Office Visit - E/M Services (Routine) +--------+--------+ + + + + | Status | Reason | Specialty | Diagnoses / | Referred By | Referred To | | | | | Procedures | Contact | Contact | +--------+--------+ + + + + | Closed | | Ophthalmology | | Madhuri, | Ronnie, | | | | | | Ramon Rosado MD | Nam Donaldson MD | | | | | | [address] | [address] | | | | | [address] | [address] | | | | | | [place], [place] | [address] | | | | | | [address] | [place] | | | | | | | [place], | | | | | | | [place] [address] | | | | | | | Phone: | | | | | | | [phone] | | | | | | | Fax: | | | | | | | [phone] | +--------+--------+ + + + + Encounter Details +--------+---------+ + + + | Date | Type | Department | Care Team | Description | +--------+---------+ + + + | 06/09/ | Office | [facility] | Nam Trujillo, | Keratoconus, | | 2016 | Visit | [place] [facility] at | [address] | bilateral (Primary | | | | [place] [address] | Dx) | | | | [address] | [place] | | | | | [facility] [place], [facility] | [address] | | | | | floor [place], [place] | | | | | | [phone] | | | +--------+---------+ + + + [...] documented as of this encounter Progress Notes Ronnie MCKOY, Nam Donaldson - 06/09/2016 2:04 PM PDTFormatting of this note might be different fr om the original. [facility] Division Progress Note 06/09/2016 Juanita Garcia is a 21 y.o. female who returns for urgent visit. Chief Complaint Patient presents with Follow-up visit Add-on 2 week follow up, h/o KCN OU. Patient reports sharp pain OD and vision is completely cloudy and hazy. She reports that her right eye seems to be turning whiter and also seems t o be "bulging out." VA is stable with current scleral lens OS. Patient denies sleeping with scleral lens OS, cleaning as instructed. Pt states both eyes feel very dry as well. Eye meds: Nanci 128 drops in am 5x/day and tia qhs Pred forte bid OD Atropine bid OD Pain: 9-achy to sharp. ROS: Medications, allergies, medical, surgical and family history were reviewed by me at th is visit utilizing [facility] patient history form and Epic patient history pertinent positives: No past medical history on file. History reviewed. No pertinent past surgical history. Family History Problem Relation Cancer Mother Additional Family History Neg Hx great great grandfather, Glaucoma History Smoking status Never Smoker Smokeless tobacco Not on file No Known Allergies Current Outpatient Prescriptions (Ophthalmic Medications) Medication Sig atropine Instill 1 drop into the right eye two times daily. prednisoLONE acetate Instill 1 drop into the right eye two times daily. Current Outpatient Prescriptions (Other) Medication Sig sodium chloride Rx: 0.9% Sodium chloride inhalation solution, 5ml. Tray of 100; refill for 3 boxes Sig: Fill scleral lens completely before insertion into eyes [facility]#: [id number] All else unless noted was neg. (fever, wt. loss, ENT, cardiovascular, pulmonary, GI, urinar y, neurologic, endocrine, bleeding/blood disorders, AIDS/HIV, cancer/tumors, arthritis) Robotics Specialist Attestation: Rabia Westbrook, performed the above history, medica tions, allergies, as well as performed elements noted in the Base Ophthalmology Exam. Examination: Base Exam Visual Acuity (Snellen - Linear) Right Left Dist sc HM 20/50 -1 Dist ph sc NI 20/20-1 Tonometry (Tonopen, 2:27 PM) Right Left Pressure 19 Pachymetry (06/09/2016) Right Left Thickness unable Neuro/Psych Oriented x3: Yes Mood/Affect: Normal Slit Lamp and Fundus Exam External Exam Right Left External Normal Normal Slit Lamp Exam Right Left Lids/Lashes 1+MGD 1+MGD Conjunctiva/Sclera Tr-1+ injection White and quiet Cornea Linear Apical Scarring with Central 6.0 x 8.0 mm zone of 2-3+ stromal edema with ov erlying MCE. No epi defect 2+Vogt stria, inferior bowing and thinning with apical scar/ Ov erlying scleral lens in place Anterior Chamber Deep and quiet Deep and quiet Iris Normal Normal Lens Clear Clear Fundus Exam Right Left Vitreous Normal Normal Assessment/Plan: Juanita Garcia is a 21 y.o. female with 1. Keratoconus OU, Hydrops OD, apical scar OU - Last seen and diagnosed with hydrops OD on 05/25/[address] Gutierrez, - Started Nanci, pred and atropine, patient here today because pain is worse and noticed mor e whitening of cornea - Patient appears stable since last visit - Continue Nanci drops QID and Ointment QHS - Continue PF BID OD - Continue Atropine Daily - Start Timolol BID OD to help with edema - Sunglasses - Patient not taking any systemic pain medication will Start Naproxen 500 mg BID - GI prophylaxis - RTC 2 weeks for recheck 2. H/o Systemic Allergies - not active at this time Diagnoses recorded for this visit were addressed unless otherwise indicated in this note. I have confirmed the presence of the above clinical diagnoses, which were considered in the current and ongoing care of the patient. At the time of this visit, the medical record ashely lentz, and/or the patient states, that there are no changes in these conditions unless other tovar noted. As treatment warrants, the patient has been advised to follow up with her PCP or appropriate specialist. Follow-up: 2 weeks Nam Trujillo MD [facility] [address] Mailcode: [place] [address] documented in this e ncounter Plan of Treatment Not on filedocumented as of this encounter Visit Diagnoses + + | Diagnosis | + + | Keratoconus, bilateral - Primary | + + documented in this encounter
--- OUTSIDE RECORDS SUMMARY | ~2020-07-22 | XMS | Encounter Summary ---
Demographics + + + | Address | [address] | | | [place] [address] | + + + | Home Phone | | + + + | Preferred Language | Unknown | + + + | Marital Status | Single | + + + | Congregation Affiliation | 1073 | + + + | Race | Unknown | + + + | Ethnic Group | Unknown | + + + Author + + + | Author | [facility] | | | and [place] | + + + | Organization | [facility] | | | and [...] Team Providers + +------+ + | Care Automatic Wheel Line Operator Name | Role | Phone | + +------+ + | Lexis Verdugo NP | PCP | | + +------+ + Reason for Referral Diagnostic/Screening (Routine) +--------+--------+ + + + + | Status | Reason | Specialty | Diagnoses / | Referred By | Referred To | | | | | Procedures | Contact | Contact | +--------+--------+ + + + + | Closed | | Radiology | Diagnoses | Andrew | | | | | | Late | Jann | | | | | | | Bill | | | | | | care | MD Sam | | | | | | affecting | [address] | | | | | | in | [place] | | | | | | third | [place] | | | | | | trimester | [address] | | | | | | Procedures | Phone: | | | | | | US OB Follow | [phone] | | | | | | Up | | | | | | | Transabdomin | | | | | | | al | | | +--------+--------+ + + + + Reason for Visit Diagnostic/Screening (Routine) +--------+--------+ + + + + | Status | Reason | Specialty | Diagnoses / | Referred By | Referred To | | | | | Procedures | Contact | Contact | +--------+--------+ + + + + | Closed | | Radiology | Diagnoses | Morales, | | | | | | Late | Jann | | | | | | | Bill | | | | | | care | MD aSm | | | | | | affecting | [address] | | | | | | in | [facility] | | | | | | third | [place] | | | | | | trimester | [address] | | | | | | Procedures | Phone: | | | | | | US OB Follow | [phone] | | | | | | Up | | | | | | | Transabdomin | | | | | | | al | | | +--------+--------+ + + + + Encounter Details +--------+ + + + + | Date | Type | Department | Care Team | Description | +--------+ + + + + | 10/10/ | Hospital | [facility] | Jann Morales | Late care | | 2017 | Encounter | [address] | Bill Vargas MD | affecting | | | | [place] | [address] | in third trimester | | | | [address] | [place], [place] | | | | | [phone] | [address] | | | | | | [phone] | | +--------+ + + + + [...] Not on filedocumented as of this encounter Procedures + +--------+ + + + | Procedure Name | Priori | Date/Time | Associated Diagnosis | Comments | | | ty | | | | + +--------+ + + + | US OB FOLLOW UP | Routin | 10/10/2017 | Late care | Results for this | | TRANSABDOMINAL | e | 8:45 AM | affecting | procedure are in the | | | | PST | in third trimester | results section. | + +--------+ + + + documented in this encounter Results US OB Follow Up Transabdominal (10/10/2017 8:45 AM PST) + + | Specimen | + + | | + + + + ----+ | Narrative | Performed At | + + ----+ | US OB FOLLOW | [facility] | | UP TRANSABDOMINAL 10/10/2017 8:45 AM HISTORY: US OB Follow Up | | | Transabdominal. COMPARISON: 09/18/2017 PROTOCOL: Saez scale and Doppler | | | images of the fetus with transabdominalimaging. FINDINGS:EGA by LMP | | | of 36 weeks 3 days. The estimated delivery date is 11/04/2017. BPD: | | | 8.7 cm, 35 weeks 1 dayHC: 30.9 cm, 34 weeks 4 daysAC: 31.8 cm, 35 | | | weeks 5 daysFL: 7.2 cm, 36 weeks 4 daysEFW: 2756 g, US percentile | | | 34%Cephalic index: 81.3 (normal range 70.0-86.0)HC/AC ratio: 0.97Fetal | | | heart rate: 137 bpm, with a normal cardiac rhythm.A single gestation | | | is seen.The cervix was not seen. Placenta previa is absent. | | | position: CephalicPlacental position: AnteriorAmniotic fluid: | | | Decreased measuring 4.0 cm. Anatomy:Normal appearance of the | | | intracranial structures, bilateral lower extremities,bladder, | | | four-chamber heart, right ventricular outflow tract, and stomach. | | | Theleft ventricular outflow tract is thought to be visualized and | | | appear normalhowever this is poorly evaluated. The visualized portions | | | of the upperextremities (humeri and forearms), somewhat limited | | | visualization of thecervicothoracolumbar spine, and partially | | | visualized kidneys demonstrate nodefinite abnormality. IMPRESSION | | | -Single live cephalic presentation fetus, growth concordant with dates | | | by LMP. Estimated gestational age by ultrasound: 35 weeks 4 days | | | Oligohydramnios with JEREMÍAS measuring 4.0 cm, which may in part be due to | | | poorvisualization. This remains a somewhat limited examination due to | | | maternal body habitus. Cordinsertion and anterior abdominal wall | | | remain nonvisualized. Remainder of the anatomic structures appear | | | normal (many of which are onlypartially visualized). Dictated and | | | Signed by: Jaime Jarquin MD Electronically signed: 10/10/2017 4:19 | | | PM | | | Anatomy: | | |Normal appearance of the intracranial structures, bilateral lower extremities, | | |bladder, four-chamber heart, right ventricular outflow tract, and stomach. The | | |left ventricular outflow tract is thought to be visualized and appear normal | | |however this is poorly evaluated. The visualized portions of the upper | | |extremities (humeri and forearms), somewhat limited visualization of the | | |cervicothoracolumbar spine, and partially visualized kidneys demonstrate no | | |definite abnormality. | | | | | |IMPRESSION - | | |Single live cephalic presentation fetus, growth concordant with dates by LMP. | | | | | |Estimated gestational age by ultrasound: 35 weeks 4 days | | | | | |Oligohydramnios with JEREMÍAS measuring 4.0 cm, which may in part be due to poor | | |visualization. | | | | | |This remains a somewhat limited examination due to maternal body habitus. Cord | | |insertion and anterior abdominal wall remain nonvisualized. | | | | | |Remainder of the anatomic structures appear normal (many of which are only | | |partially visualized). | | | | | |Dictated and Signed by: Jaime Jarquin MD | | | Electronically signed: 10/10/2017 4:19 PM | | | | | + + ----+ + + | Procedure Note | + + | Rajendra, Rad Results In - 10/10/2017 4:22 PM PST US OB FOLLOW UP TRANSABDOMINAL | | 10/10/2017 8:45 AM HISTORY: US OB Follow Up Transabdominal.COMPARISON: | | 09/18/2017PROTOCOL: Saez scale and Doppler images of the fetus with | | transabdominalimaging.FINDINGS:EGA by LMP of 36 weeks 3 days. The estimated delivery | | date is 11/04/2017.BPD: 8.7 cm, 35 weeks 1 dayHC: 30.9 cm, 34 weeks 4 daysAC: 31.8 cm, | | 35 weeks 5 daysFL: 7.2 cm, 36 weeks 4 daysEFW: 2756 g, US percentile 34%Cephalic index: | | 81.3 (normal range 70.0-86.0)HC/AC ratio: 0.97Fetal heart rate: 137 bpm, with a normal | | cardiac rhythm.A single gestation is seen.The cervix was not seen. Placenta previa is | | absent. position: CephalicPlacental position: AnteriorAmniotic fluid: Decreased | | measuring 4.0 cm. Anatomy:Normal appearance of the intracranial structures, | | bilateral lower extremities,bladder, four-chamber heart, right ventricular outflow | | tract, and stomach. Theleft ventricular outflow tract is thought to be visualized and | | appear normalhowever this is poorly evaluated. The visualized portions of the | | upperextremities (humeri and forearms), somewhat limited visualization of | | thecervicothoracolumbar spine, and partially visualized kidneys demonstrate nodefinite | | abnormality. IMPRESSION -Single live cephalic presentation fetus, growth concordant with | | dates by LMP.Estimated gestational age by ultrasound: 35 weeks 4 daysOligohydramnios | | with JEREMÍAS measuring 4.0 cm, which may in part be due to poorvisualization.This remains a | | somewhat limited examination due to maternal body habitus. Cordinsertion and anterior | | abdominal wall remain nonvisualized.Remainder of the anatomic structures appear normal | | (many of which are onlypartially visualized).Dictated and Signed by: Jaime Jarquin MD | | Electronically signed: 10/10/2017 4:19 PM | |Placenta previa is absent. | | | | position: Cephalic | |Placental position: Anterior | |Amniotic fluid: Decreased measuring 4.0 cm. | | | | Anatomy: | |Normal appearance of the intracranial structures, bilateral lower extremities, | |bladder, four-chamber heart, right ventricular outflow tract, and stomach. The | |left ventricular outflow tract is thought to be visualized and appear normal | |however this is poorly evaluated. The visualized portions of the upper | |extremities (humeri and forearms), somewhat limited visualization of the | |cervicothoracolumbar spine, and partially visualized kidneys demonstrate no | |definite abnormality. | | | |IMPRESSION - | |Single live cephalic presentation fetus, growth concordant with dates by LMP. | | | |Estimated gestational age by ultrasound: 35 weeks 4 days | | | |Oligohydramnios with JEREMÍAS measuring 4.0 cm, which may in part be due to poor | |visualization. | | | |This remains a somewhat limited examination due to maternal body habitus. Cord | |insertion and anterior abdominal wall remain nonvisualized. | | | |Remainder of the anatomic structures appear normal (many of which are only | |partially visualized). | | | |Dictated and Signed by: Jaime Jarquin MD | | Electronically signed: 10/10/2017 4:19 PM | + + + +---------+ + + | Performing | Address | City/State/Zipcode | Phone Number | | Organization | | | | + +---------+ + + | [facility] | | | | + +---------+ + + documented in this encounter Visit Diagnoses + + | Diagnosis | + + | Late care affecting in third trimester | + + documented in this encounter"
--- OUTSIDE RECORDS SUMMARY | ~2020-07-22 | XMS | Encounter Summary ---
Demographics + + + | Address | [address] | | | [place] [address] | + + + | Home Phone | | + + + | Preferred Language | Unknown | + + + | Marital Status | Single | + + + | Jewish Affiliation | Unknown | + + + | Race | or | + + + | Ethnic Group | Not or | + + + Author + + + | Author | [facility] | + + + | Organization | [facility] | + + + | Address | Unknown | + + + | Phone | Unavailable | + + + Support + + +---------+ + | Name | Relationship | Address | Phone | + + +---------+ + | Lorie Teran | ECON | Unknown | | + + +---------+ + Care Team Providers + +------+ + | Care Shredding Specialist Name | Role | Phone | + +------+ + | Marc Agee MD | PCP | | + +------+ + Reason for Visit + + + | Reason | Comments | + + + | Medical Eye | | | Examination | | + + + | Contact Lens | | | Evaluation | | + + + | RGP - Rigid | | | Gas-Permeable Lens | | + + + Office Visit - E/M Services (Routine) +--------+--------+ + + + + | Status | Reason | Specialty | Diagnoses / | Referred By | Referred To | | | | | Procedures | Contact | Contact | +--------+--------+ + + + + | Closed | | Ophthalmology | Diagnoses | Cyndie, | Alex, | | | | | | Marc Donaldson MD | KEVIN Irby | | | | | Keratoconus, | [place] | [address] | | | | | | [place] | [address] | | | | | unspecified, | Health | [place], [place] | | | | | bilateral | Center | [address] | | | | | | [address] | Phone: | | | | | | [place] | [phone] | | | | | | Way | Fax: | | | | | | [place], | [phone] | | | | | | [place] [address] | | | | | | | Phone: | | | | | | | [phone] | | | | | | | Fax: | | | | | | | [phone] | | +--------+--------+ + + + + Encounter Details +--------+---------+ + + + | Date | Type | Department | Care Team | Description | +--------+---------+ + + + | 01/17/ | Office | [facility] | Surekha Johnson OD | Keratoconus of both | | 2019 | Visit | [place]/Ophthalmol | [address] | eyes (Primary Dx); | | | | ogy at [facility] [address] | [place], [place] | Central corneal | | | | [address] [facility] for | [address] | opacity of both eyes | | | | Health and [facility], | [phone] | | | | | | | | | | | Floor [place], [place] | | | | | | [address] | | | | | | [phone] | | | +--------+---------+ + + + [...] documented as of this encounter Progress Notes Surekha Johnson, OD - 01/17/2019 2:00 PM PST Dx#2 KV Lens design bc Rx OAD/CT OZ LCZ SLZ material Tint RE Custom Stable Elite 46.50 -12.50 15.8 1 flat +3/-2 extra clear LE Custom Stable Elite 46.00 -11.25-1.44d232 Toric Anil @30R 15.8 stand +3/-2 extra Blue Lens Home Visits Nurse: Saulo Contax [place] VA Fit OD plano 20/ni 50central clearance, ?touch nasal to VA, SLZ 90, 300 temp LCZ, thin nasal LCZ, good scleral apposition. No excessive compression or impingement noted superiorly. Patc h of non-wetting temporal to VA OS -0.50 20/80 50 central clearance and over scar, markings 30R, 300 temp limbal, thin nasa l LCZ, good scleral apposition Chief Complaint Patient presents with Medical Eye Examination Contact Lens Evaluation RGP - Rigid Gas-Permeable Lens Irritation along superior edge of CL OD starting last month, comes and goes. Feels better t his month. OS feels fine. Vision sometimes fluctuates OS due to scar but overall stable. Mor e light sensitive OD than OS. Does not take allergy drop, uses cold compresses prn when eyes feel itchy. No ophthamicAgents medications on file ASSESSMENT: 1. Advanced keratoconus OU with irregular astigmatism causing uncorrectable blur thru spect acle lenses. F/b Dr. Gutierrez, last seen Nob 2016. 2. Apical scars OU secondary to resolved hydrops (05/2016 OD, 05/2017 OS) due to #1. Stable, no contraindications to CL wear. 3. Mild bearing on nasal apical scar OD, underminused OS. Haptic alignment appropriate OU. 4. Trace evidence of inadequate anterior surface wetting OD. 5. Overdue DFE today. Posterior segment healthy OU. PLAN: 1. Steepen sag OD, adjust Rx OS. Contact lens prescription written for 1 year supply of con tact lenses. The patient understands the limits of this prescription and that yearly vision and health checks are required to continue wearing contact lenses. 2. Advised pt to apply makeup after insertion of CL, avoid lotion or perfume-based soaps fo r hand washing. 3. Continue with cold compresses, OTC allergy drops prn. 4. Ed pt on findings, imporntace of regular DFE. Advised to schedule overdue f/u with Dr. Ishaan sanchez. 5. RTC in 1 year for annual MTCL management or sooner prn. Final Lens design bc Rx OAD/CT OZ LCZ SLZ material Tint RE Custom Stable Elite 47.25 -13.25 15.8 1 flat +3/-2 Extra Clear LE Custom Stable Elite 46.00 -[id number] Toric Anil @30R 15.8 stand +3/-2 Extra Blue Lens Home Visits Nurse: Saulo Jonesronically signed by Surekha Johnson OD at 01/17/2019 3 :13 PM PSTdocumented in this encounter Plan of Treatment Not on filedocumented as of this encounter Procedures + +--------+ + + + | Procedure Name | Priori | Date/Time | Associated Diagnosis | Comments | | | ty | | | | + +--------+ + + + | ME CONTACT LENS | Routin | 01/17/2019 | Keratoconus of | | | MANAGEMENT | e | 2:27 PM | both eyes Central | | | | | PST | corneal opacity of | | | | | | both eyes | | + +--------+ + + + documented in this encounter Visit Diagnoses + + | Diagnosis | + + | Keratoconus of both eyes - Primary Keratoconus, unspecified | + + | 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
--- OUTSIDE RECORDS SUMMARY | ~2020-07-22 | XMS | Encounter Summary ---
Demographics + + + | Address | [address] | | | [place] [address] | + + + | Home Phone | | + + + | Preferred Language | Unknown | + + + | Marital Status | Single | + + + | Oriental Orthodox Affiliation | Unknown | + + + | Race | or | + + + | Ethnic Group | Not or | + + + Author + + + | Author | [facility] | + + + | Organization | [facility] | + + + | Address | Unknown | + + + | Phone | Unavailable | + + + Support + + +---------+ + | Name | Relationship | Address | Phone | + + +---------+ + | Lorie Teran | ECON | Unknown | | + + +---------+ + Care Team Providers + +------+ + | Care Leather Softener Name | Role | Phone | + +------+ + | Tereza Mahan | PCP | | + +------+ + Reason for Visit + + + | Reason | Comments | + + + | Blurred vision - | referral from [facility] for keratoconus consultation; patient's | | hazy | vision is blurry, distorted, lots of glare; glasses minimally | | | improve; has tried contacts in the past but they were irritating | | | and the vision was not better through them/did not give them | | | enough of a chance; uses artificial tears prn when eeys are | | | itchy; no pain; not in school or driving because cant see | + + + Office Visit - E/M Services (Routine) +--------+--------+ + + + + | Status | Reason | Specialty | Diagnoses / | Referred By | Referred To | | | | | Procedures | Contact | Contact | +--------+--------+ + + + + | Closed | | Ophthalmology | Diagnoses | Elia, | Oc, | | | | | [facility] | MD Ade | Abraham Rosado, OD | | | | | | [address] | [address] | | | | | | [place] | [place] | | | | | | [place] | [place], [place] | | | | | | [address] | [address] | | | | | | Phone: | Phone: | | | | | | [phone] | [phone] | | | | | | Fax: | Fax: | | | | | | [phone] | [phone] | +--------+--------+ + + + + Encounter Details +--------+---------+ + + + | Date | Type | Department | Care Team | Description | +--------+---------+ + + + | 09/30/ | Office | [facility] | Chacorta Vincent, OD | Keratoconus, | | 2012 | Visit | [place]/[facility]mol | [address] | unspecified (Primary | | | | ogy at [facility] [address] | [place], [place] | Dx); Irregular | | | | [address] [facility] for | [address] | astigmatism | | | | Health and Healing, | [phone] | | | | | | | | | | | Floor [place], [place] | | | | | | [address] | | | | | | [phone] | | | +--------+---------+ + + + [...] + + documented as of this encounter Patient Instructions Patient Instructions Chacorta Vincent OD - 09/30/2013 11:30 AM [email or web address] For application and removal of scleral lens how-to video About 9minutes long documented in this encounter Progress Notes Chacorta Vincent OD - 09/30/2013 11:04 AM PST Robb 15Mp6 Fitting: OD: 52, -12, 15.6, 500 clearance 46, -6; 250 central, inf decentered; 20/30 [place] -3.00 OS: 50D, -10.00; 500 clearance 45,-5, 250 central, inf decentered 20/30 -3.00 OR VA Fit OD -3.00 20/30 inf decentered, not as much as left eye, 250-300 central clearance, clearanc e over limbus, no seal off, scleral alignment OS -3.00 20/25-3 inf decentered, when decentered peripheral blanching, when recentered no s ealoff;250-300 central clearance, clearance overlimbus; 09/30/2013 NS #1 Lens design BC Rx OAD/CT OZ PC1/Corneal zone PC2/Limbal zone PC3/Scleral zone PC4/Edg e zone material Tint RE Robb 46.00 -9.00 15.80 8.40 7.54 (1.7) 8.7 (0.9) 12.75 (0.7) 14.25 (0.4) [place]-97 (plasma) clear LE Robb 45.00 -8.00 15.80 8.40 7.70 (1.7) 8.7 (0.9) 12.75 (0.7) 14.25 (0.4) [place]-97 (plasma) blue Lens Poacher Wringer Operator: Essilor Shorten OZ, widen peripheral to center the lens Chief Complaint Patient presents with Blurred vision - [facility]; patient's vision is blurry, disto rted, lots of glare; glasses minimally improve; has tried contacts in the past but they were irritating and the vision was not better through them/did not give them enough of a chance; uses artificial tears prn when eeys are itchy; no pain; not in school or driving because ca nt see No ophthamicAgents medications on file See EPIC notes for Ophthalmology Exam Findings Reviewed systems for: fever, wt. loss, ENT, cardiovascular, pulmonary, GI, urinary, neurolo gic, endocrine, bleeding/blood disorders, AIDS/HIV, cancer/tumors, arthritis - all were nega tive except as noted above. ASSESSMENT: Keratoconus degeneration OU inducing Irregular Astigmatism causing uncorrectable blur thru spectacle lenses -vision improves from 20/400 with glasses to 20/30 with scleral lenses OD, 20/200 with gla sses to 20/25 with sclerals OS PLAN: Medically necessary contact lenses recommended to improve vision & symptoms that would not otherwise be correctable with glasses. No improvement in vision otherwise. Order lens noemi eters per above to vault over irregularity of the cornea. Fitting fee for Keratconus to be dropped at next visit. Quoted 360/lens. RTC in 2-3 weeks from the lens order for a dispense , application, and removal training. Gave patient link for video to watch. Electronically s igned by Chacorta Vincent OD at 09/30/2013 11:50 AM PSTdocumented in this encounter Miscellaneous Notes Scan - Other, Faculty - 12/04/2013 10:24 AM PSTElectronically signed by Faculty Other at 10:25 AM PSTScan - Other, Faculty - 10/18/2013 8:59 AM PST documented in this encounter Plan of Treatment Not on filedocumented as of this encounter Visit Diagnoses + + | Diagnosis | + + | Keratoconus, unspecified - Primary | + + | Irregular astigmatism | + + documented in this encounter"
--- OUTSIDE RECORDS SUMMARY | ~2020-07-22 | XMS | Encounter Summary ---
Demographics + + + | Address | [address] | | | [place] [address] | + + + | Home Phone | | + + + | Preferred Language | Unknown | + + + | Marital Status | Single | + + + | Mosque Affiliation | Unknown | + + + | Race | or | + + + | Ethnic Group | Not or | + + + Author + + + | Author | [facility] | + + + | Organization | [facility] | + + + | Address | Unknown | + + + | Phone | Unavailable | + + + Support + + +---------+ + | Name | Relationship | Address | Phone | + + +---------+ + | Lorie Teran | ECON | Unknown | | + + +---------+ + Care Team Providers + +------+ + | Care Shiftman Name | Role | Phone | + +------+ + | Phuong Martino | PCP | | + +------+ + Reason for Visit + + + | Reason | Comments | + + + | Medical Eye | | | Examination | | + + + Consultation (Routine) + +--------+ + + + + | Status | Reason | Specialty | Diagnoses / | Referred By | Referred To | | | | | Procedures | Contact | Contact | + +--------+ + + + + | Authorized | | Ophthalmology | Diagnoses | Cei | Surjit Small, | | | | | | Medical Cl | OD [address] | | | | | Keratoconus, | [address] | | | | | | [address] | [facility] [place] | | | | | unspecified, | Center for | [address] | | | | | bilateral | Health and | Phone: | | | | | Central | Healing, | [phone] | | | | | corneal | Building [address], | Fax: | | | | | opacity, | 11th Floor | [phone] | | | | | bilateral | [place], [place] | | | | | | Procedures | [address] | | | | | | [place] | Phone: | | | | | | OFFICE/OUTPT | [phone] | | | | | | | Fax: | | | | | | VISIT,EST,LE | [phone] | | | | | | VL IV [place] | | | | | | | CONTACT LENS | | | | | | | | | | | | | | FITTINGYENI | | | | | | | T | | | + +--------+ + + + + Encounter Details +--------+---------+ + + + | Date | Type | Department | Care Team | Description | +--------+---------+ + + + | 01/06/ | Office | [facility] | Surjit Small, OD | Keratoconus of both | | 2020 | Visit | [place]/Ophthalmol | [address] | eyes (Primary Dx) | | | | ogy at [facility] [address] | [place], [place] | | | | | [address] [facility] | [address] | | | | | Health and Healing, | [phone] | | | | | | | | | | | Floor [place], [place] | | | | | | [address] | | | | | | [phone] | | | +--------+---------+ + + + [...] documented as of this encounter Progress Notes Surjit Small, OD - 01/06/2020 11:00 AM PST Lens design bc Rx OAD/CT OZ LCZ SLZ material Tint RE Custom Stable Elite 47.25 -13.25 15.8 1 flat +3/-2 Extra Clear LE Custom Stable Elite 46.00 -11.75-1.13v647 Toric Anil @30R 15.8 stand +3/-2 Extra Blue Lens Breaker Layer: Saulo Laura [place] [facility] Fit OD PL-1.25x80 20/60+1 Hours of wear: 4hrs Central Clearance: <100 Sup limbus: 150 Inf limbus: 1000 Nasal limbus: 50 or less Temp limbus: 200 Edge: adequate Rotation: 45L Movement: none Blanching/impingement: none Other notes: moderate fogging, make up debris on anterior lens surface, poor wettability NaFl test: no seepage in primary gaze, when pt looks down NaFl entering from the top. Staining post lens removal: 3+ diffuse PEE with whirl pattern staining centrally at scar ed ges OS PL 20/100 (NI) Hours of wear: 4hrs Central Clearance: <100 Sup limbus: 200 Inf limbus: 1000 Nasal limbus: 50 or less Temp limbus: 300 Edge: adequate Rotation: 60R, did not observe F1 toric marker Movement: none Blanching/impingement: none, steep approach temp - acceptable Other notes: mild fogging NaFl test: no seepage Staining post lens removal: 2+ diffuse PEE with whirl staining pattern centrally at scar ed ges Dx#2 - Small [id number] Lens design bc Rx OAD/CT OZ LCZ SLZ material Tint RE Custom Stable Elite 47.25 -13.25-1.38j406 CT: 250 15.8 0.5Flat +3/-2 Infinite Clear LE Custom Stable Elite 46.00 -11.75-1.76b404 Toric Anil @30R CT: 250 15.8 0.5Steep +3/-2 Infinite Blue Lens Breaker Layer: [employer] [place] Times[employer]ya Reference: 420 Chief Complaint Patient presents with Medical Eye Examination Last MCTL exam [id number] w/ Dr. Johnson. Pt is due for annual exam. Also just order Cls in and here for a check up on that as well. Pt report overall good comfort and vision with lenses. Does state that OD takes a longer t marlene to settle in comparison to OS. No ophthamicAgents medications on file ASSESSMENT: 1. Advanced keratoconus OU with irregular astigmatism causing uncorrectable blur thru spect acle lenses 2. Apical scars OU secondary to resolved hydrops (05/2016 OD, 05/2017 OS) due to #1. Stable, no contraindications to CL wear. 3. Diffuse Punctate keratitis OU 4. Inadequate anterior surface wetting OD. 5. Due for yearly DFE. PLAN: 1. Inc central clearance due to possible signs of touch OU. Warranty exchange Dx#2 OU. Ship to patient - Patient understands that the previous lens must be returned to us to receive c redit or be charged an additional cost for lenses. RTC in 2 weeks for f/u. 2. Monitor. 3. Suspect due to solution sensitivity. Pt report using Cupertino. May cont using that as disi nfectant. Recommend rinsing lens with saline before insertion. 4. If no improvement may consider trying unique pH or HydraPEG. 5. DFE at next visit. documented in this encounte r Plan of Treatment Not on filedocumented as of this encounter Procedures + +--------+ + + + | Procedure Name | Priori | Date/Time | Associated Diagnosis | Comments | | | ty | | | | + +--------+ + + + | [place] CONTACT LENS | Routin | 01/06/2020 | Keratoconus of | | | MANAGEMENT | e | 12:12 PM | both eyes | | | | | PST | | | + +--------+ + + + documented in this encounter Visit Diagnoses + + | Diagnosis | + + | Keratoconus of both eyes - Primary Keratoconus, unspecified | + + documented in this encounter"
--- OUTSIDE RECORDS SUMMARY | ~2020-07-22 | XMS | Encounter Summary ---
Demographics + + + | Address | [address] | | | [place] [address] | + + + | Home Phone | | + + + | Preferred Language | Unknown | + + + | Marital Status | Single | + + + | Buddhist Affiliation | Unknown | + + + | Race | or | + + + | Ethnic Group | Not or | + + + Author + + + | Author | [facility] | + + + | Organization | [facility] | + + + | Address | Unknown | + + + | Phone | Unavailable | + + + Support + + +---------+ + | Name | Relationship | Address | Phone | + + +---------+ + | Lorie Teran | ECON | Unknown | | + + +---------+ + Care Team Providers + +------+ + | Care Audit Lead Name | Role | Phone | + +------+ + | Tereza Mahan | PCP | | + +------+ + Reason for Visit + + + | Reason | Comments | + + + | New patient | Pt referred by Dr Dhaliwal for cornea eval. Pt was c/o tearing, | | consultation | pain, photophobia, and blurry vision beginning a year or 2 ago. A | | | few months ago sx became worse. She tried GPCL but could not | | | tolerate them, she gets excema around eyes. She feels small lumps | | | often under BUL. None today. | + + + Office Visit - E/M Services (Routine) +--------+--------+ + + + + | Status | Reason | Specialty | Diagnoses / | Referred By | Referred To | | | | | Procedures | Contact | Contact | +--------+--------+ + + + + | Closed | | Ophthalmology | Diagnoses | [place], | | | | | | | [place] | [place], | | | | | Keratoconus, | [address] | Tami Mckeon MD | | | | | unspecified | [place] | [address] | | | | | [address] | [place] | | | | | | [address] | Rm | | | | | | Phone: | [place], [place] | | | | | | [phone] | [address] | | | | | | Fax: | Phone: | | | | | | [phone] | [phone] | | | | | | | Fax: | | | | | | | [phone] | +--------+--------+ + + + + Encounter Details +--------+---------+ + + + | Date | Type | Department | Care Team | Description | +--------+---------+ + + + | 09/05/ | Office | [facility] | [place], | Keratoconus, | | 2012 | Visit | [place] [facility] | Tami Mckeon MD [address] | unspecified (Primary | | | | [facility] | [place] | Dx); Blepharitis | | | | [address] | [place], [place] | | | | | [facility] [place], [facility] | [address] | | | | | [place], [place] | [phone] | | | | | [address] | | | +--------+---------+ + + + [...] documented as of this encounter Progress Notes Tami Velasquez MD - 09/05/2013 1:47 PM PDTFormatting of this note might be differ ent from the original. Cornea Division Progress Note 09/05/2013 Chief Complaint Patient presents with New patient consultation Pt referred by Dr Dhaliwal for cornea eval. Pt was c/o tearing, pain, photophobia, and blurr y vision beginning a year or 2 ago. A few months ago sx became worse. She tried GPCL but cou ld not tolerate them, she gets excema around eyes. She feels small lumps often under BUL. No ne today. Pain: 0 Past ocular history: none Family ocular history: none PCP: SAEED Hamilton Referring: Ramon Dhaliwal MD ROS: Medications, allergies, medical, surgical and family history were reviewed by me at th is visit utilizing Cornea patient history form and Epic patient history pertinent positives: No past medical history on file. No past surgical history on file. Family History Problem Relation Cancer Mother History Smoking status Not on file Smokeless tobacco Not on file Not on File All else unless noted was neg. (fever, wt. loss, ENT, cardiovascular, pulmonary, GI, urinar y, neurologic, endocrine, bleeding/blood disorders, AIDS/HIV, cancer/tumors, arthritis) [employer] Stri[employer] Etcher Attestation: MINNIE [place], performed, reviewed or revised the above histor y, medications, allergies, as well as performed elements noted in the Base Ophthalmology Exa m, such as visual acuity, pupils, EOMs, CVF and IOP. Examination: Base Exam Visual Acuity Right Left Dist cc 20/400 20/200 Dist ph cc 20/200-1 phni Method: Snellen - Linear Tonometry Right Left Pressure 15 15 Method: Tonopen Time: 2:31 PM Wearing Rx Sphere Right -6.25 Left -7.00 Age: 1yr Type: SVL Manifest Refraction Sphere Cylinder [place] Dist Right -6.00 -0.25 100 20/200-1 Left -5.75 -0.50 150 20/150 Dilation Both eyes: 2.5% Phenylephrine, 1.0% Mydriacyl @ 2:32 PM Pupils Pupils Right PERRL Left PERRL Visual See Left Right Result Full Full Method: Counting fingers Extraocular Movement Right Left Result Full Full IMPRESSION: 1. Referred by Dr. Dhaliwal For keratoconus. 2. H/o eczema and h/o multiple hordeolums--non apparent today. Some Meibomian gland pittin g, likey from previous inflammation 3. KCS PLAN: 1. Scleral lenses with Oc--optimiaztion of vision and dry eye therapy. 2. Pt Is prime candidate for UV/ Riboflavin crosslinking trial--Pentacam suggest Kmax and CCT meet criteria. Pt likely does not have resources. Need letter to [facility] to seek financial help for crosslinking. Will get Karely involved to coordinate this and see if they may help with the cost of the m edical care. TAMI VELASQUEZ MD [facility] [address] [facility] Mailcode: [place] [phone] documented in this encounter Miscellaneous Notes Scan - Albin Faculty - 09/19/2013 2:46 PM PSTElectronically signed by Faculty Other at 2:46 PM PSTScan - Albin Faculty - 09/18/2013 9:41 AM PST documented in this encounter Plan of Treatment Not on filedocumented as of this encounter Visit Diagnoses + + | Diagnosis | + + | Keratoconus, unspecified - Primary | + + | Blepharitis | + + documented in this encounter"
--- OUTSIDE RECORDS SUMMARY | ~2020-07-22 | XMS | Encounter Summary ---
Demographics + + + | Address | [address] | | | [place] [address] | + + + | Home Phone | | + + + | Preferred Language | Unknown | + + + | Marital Status | Single | + + + | Advent Affiliation | [id number] | + + + | Race | Unknown | + + + | Ethnic Group | Unknown | + + + Author + + + | Author | [facility] | | | and [place] | + + + | Organization | [facility] | | [...] Team Providers + +------+ + | Care Message Broker Developer Name | Role | Phone | + +------+ + | Lexis Verdugo NP | PCP | | + +------+ + Reason for Visit + + + | Reason | Comments | + + + | Water Leaking | since 0440 | | (Possible Membrane | | | Rupture) | | + + + | Contractions | since 0500 | + + + Auth/Cert +--------+--------+ + + + + | [...] Description | +--------+---------+ + + + | 11/07/ | Surgery | [facility] | Jann Morales | Vaginal Laceration | | 2017 | | MED [facility] | Bill Vargas MD | Repair | | | | [address] | [address] | | | | | [place] | [place] | | | | | [phone] | [phone] | | | | | [phone] | [phone] | | +--------+---------+ + + + Social [...] + + documented as of this encounter Last Filed Vital Signs + + + + + | Vital Sign | Reading | Time Taken | Comments | + + + + + | Blood Pressure | 123/81 | 11/07/2017 4:30 PM | | | | | PST | | + + + + + | Pulse | 109 | 11/07/2017 4:30 PM | | | | | PST | | + + + + + | Temperature | 37 C (98.6 F) | 11/07/2017 11:15 AM | | | | | PST | | + + + + + | Respiratory Rate | 16 | 11/07/2017 11:15 AM | | | | | PST | | + + + + + | Oxygen Saturation | 100% | 11/07/2017 4:30 PM | | | | | PST [...] | | + + + + + documented in this encounter Discharge Summaries Jann Morales MD - 11/09/2017 8:23 AM PST DISCHARGE SUMMARY-OBSTETRICS Date of Admission: 11/07/2017 Date of Discharge: 11/09/2017 ATTENDING CLINICIAN: Jann Vuong* PRIMARY SPEECH TEACHER: Lexis Verdugo NP HISTORY OF PRESENT ILLNESS 22 y.o. 40w3d presented for labor. HOSPITAL COURSE: Juanita Garcia is a 22 y.o.-year-old, now female (Estimated Date of Deliv mary lou: 11/04/17) who had a delivered by Vaginal, Spontaneous Delivery . At 11/07/2017 1522 ,Juanita bore a living female 3.816 kg (8 lb 6.6 oz) , . scores were 8 /9 at one and five minutes respectively. Her labor course was uncomplicated, however delivery was complicated by a high sulcal laceration with estimated blood loss of 800 mL total. Patient had to be taken to OR for better visualization and pain control to repair laceration. Arnie gillis did well in the course. Had significant drop in Hgb however consistent with blo od loss. Patient was asymptomatic for anemia however. After repair the vagina was packed ove rnight for compression. Packing was removed PPD#1 and fernandez was removed. Pain was well cont rolled and she was ambulating well without any difficulty. She had normal bowel an urinary function. Her vital signs were stable and afebrile. Nursing was going well. She was disc harged home in stable condition. She was given written post operative instructions in regar ds to her activity level and limitations. DISPOSITION: home CONDITION UPON DISCHARGE: stable DISCHARGE MEDICATIONS: Discharge Medications New Medications Details docusate sodium 100 MG capsule Take 200 mg by mouth nightly. aka: COLACE HYDROcodone-acetaminophen 5-325 mg per tablet Take 1-2 tablets by mouth every 4 hours as needed for Pain. aka: NORCO ibuprofen 600 MG tablet Take 1 tablet by mouth every 6 hours as needed for Pain. aka: ADVIL,MOTRIN Unchanged Medications Details 27-0.8 mg multivitamin tablet Take 1 tablet by mouth Twice daily breakfast/Bedtime. There is no immunization history for the selected administration types on file for this pat ient. FOLLOWUP: 6 weeks PRECAUTIONS: Pelvic rest for 6 weeks DIET: Regular Electronically Signed by: Jann Morales MD 11/09/2017 8:23 dopurnima asbhy in this encounter Discharge Instructions Instructions Jann Morales MD - 11/08/2017 After a Vaginal After having a baby, your body may be very tired. It can take time to recover from a vagina l delivery. You may stay in the hospital or center from 1 to 4 days.In some cases, y ou may be able to go home the same day. Right after the delivery Your temperature and blood pressure will be taken until they are stable. A nurse or other ealtare provider will observe you as you rest. You may have afterbirth pains. These are cr amps caused by the uterus shrinking. Sanitary pads are used to soak up the discharge of the uterine lining. To make sure that you aren t bleeding too much, the pad will be checked. A nd the firmness of your uterus will be checked. To do this, a nurse will gently push down on your stomach. If you had anesthesia, you ll be watched closely until you can feel and mov e your toes. If you have perineal pain (pain between the vagina and anus), an ice pack can h elp. [place] care While still in the hospital or center, you ll learn how to hold and feed your baby. You willalso be given instructions on how to care for your baby. This includes bathing an d feeding. Preparing to go home You may be anxious to go home as soon as possible. Before you and your baby go home, a [facility] provider will check to be sure you are healthy enough to take care of your baby and y ourself. You re ready to go home when: You can walk to the bathroom and use the bathroom without help. You can eat solid food and swallow pills (if needed). You have no sign of infection or other health problems, including fever. You have adequate pain control. Your bleeding isn't excessive. You are able to care for your and are emotionally stable. Before leaving the hospital or center, you ll be given written instructions for antonina e self-care after vaginal delivery. Be sure to follow these instructions carefully. If you h ave questions or concerns, talk about them now. If you have stitches You may have received stitches in the skin near your vagina. The stitches might have closed an episiotomy (an incision that enlarges the opening of the vagina). Or you may have needed stitches to repair torn skin. Either way, your stitches should dissolve within weeks. Until then, you can help reduce discomfort, aid healing, and reduce your risk of infection by jessica ping the stitches clean. These tips can help: Gently wipe from front to back after you urinate or have a bowel movement. After wiping, spray warm water on the area. Or you can have a sitz bath. This means sitt ing in a tub with a few inches of water in it. Then pat the area dry or use a hairdryer on a cool setting. Do not use soap or any solution except water on the area. You can take a shower unless told not to. Change sanitary pads at least every [address] cold or heat packs on the area as directed by your healthcare providers or nurses. Keep a thin towel between the pack and your skin. Sit on firm seats so the stitches pull less. follow-up Schedule a follow-up exam with your healthcare provider for about 6 weeks after d elivery. During this exam, your uterus and vaginal area will be checked. Contact your health care provider if you think you or your baby are having any problems. When to call your healthcare provider Call your health care provider right away if you have: A fever of 100.4F (38.0C) or higher Bleeding that requires a new sanitary pad after an hour, or large blood clots Pain in your vagina that gets worse and isn't relieved with medicine Swelling, discharge, or increased pain from vaginal tear or episiotomy Burning, pain, red streaks, or lumpy areas in your breasts that may be accompanied by fl u-like symptoms Cracks, blisters, or blood on your nipples Burning or pain when you urinate Nausea or vomiting Dizziness or fainting Feelings of extreme sadness or anxiety, or a feeling that you don t want to be with yo ur baby Abdominal pain that isn t relieved with medicine Vaginal discharge that has a bad odor No bowel movement for 5 days Painful urination, orinability to control urination Redness, warmth, or pain in the lower leg Chest pain Date Last Reviewed: 06/13/201519993725-5888 [employer]. [address] [place] [address]. All righ ts reserved. This information is not intended as a substitute for professional medical care. Always follow your healthcare professional's instructions. documented in this encounter Medications at Time of Discharge + + + +---------+ + + | Medication | Sig | Dispensed | Refills | Start | End Date | | | | | | Date | | + + + +---------+ + + | docusate sodium | Take 200 mg by mouth | 30 | 0 | 11/09/20 | | | (COLACE) 100 MG | nightly. | capsule | | 17 | | | capsule | | | | | | + + + +---------+ + + | | Take 1-2 tablets by | 20 | 0 | 11/09/20 | | | HYDROcodone-acetamin | mouth every 4 hours | tablet | | 17 | | | ophen (NORCO) 5-325 | as needed for Pain. | | | | | | mg per tablet | | | | | | + + + +---------+ + + | ibuprofen | Take 1 tablet by | 60 | 0 | 11/09/20 | | | (ADVIL,MOTRIN) 600 | mouth every 6 hours | tablet | | 17 | | | MG tablet | as needed for Pain. | | | | | + + + +---------+ + + | 27-0.8 mg | Take 1 tablet by | | 0 | | | | multivitamin tablet | mouth Twice daily | | | | | | | breakfast/Bedtime. | | | | | + + + +---------+ + + documented as of this encounter Progress Notes Jann Morales MD - 11/09/2017 8:21 AM PSTObstetrics Progress N ote ID:Juanita Garcia is a 22 y.o. female now s/p spontaneous vaginal delivery , with high sulcal laceration with hemorrhage and repair in OR, PPD# 2 Subjective: Patient doing well overall without any concerns Pain: Well controlled : Bottle feeding Lochia: Minimal Ambulating: without difficulty Voiding: spontaneously without adequate UOP Maternal VS's: BP: 107/53 Pulse: 104 Temp: 36.9 C (98.5 F) Exam: General: No acute distress, baby at bedside Cardiac: Mild tachycardia, regular rhythm, no murmurs appreciated Pulmonary: Clear to auscultation bilaterally, good air movement Abdomen: Soft, non-tender, non-distended Fundus: Firm, below the umbilicus Extremities: No calf tenderness, appropriate edema AssesmentPlan: S/p spontaneous vaginal delivery, with high sulcal laceration with hemorrhage an d repair in OR, PPD# 2 Recovering appropriately Anemia s/p PP hemorrhage, asymptomatic Stable and ready for discharge Rh positive DC home today. Electronically Signed by: Jann Morales MD 11/09/2017 8:21 Jann García MD - 11/08/2017 9:04 AM PSTObstetrics Progress Note ID:Juanita Garcia is a 22 y.o. female now s/p spontaneous vaginal delivery , with high sulcal laceration with hemorrhage and repair in OR, PPD# 1 Subjective: Patient doing well overall without any concerns Pain: Well controlled : Bottle feeding Lochia: Vaginal packing removed and 70% saturated, no active bleeding noted. Ambulating: Not yet ambulatory but denies dizziness at rest Voiding: via catheter due to vaginal packing in place overnight. Adequate urine output euceda merrick low. Maternal VS's: BP: 108/55 Pulse: 118 Temp: 36.9 C (98.4 F) Exam: General: No acute distress, baby at bedside Cardiac: Mild tachycardia, regular rhythm, no murmurs appreciated Pulmonary: Clear to auscultation bilaterally, good air movement Abdomen: Soft, non-tender, non-distended Fundus: Firm, below the umbilicus Extremities: No calf tenderness, appropriate edema AssesmentPlan: S/p spontaneous vaginal delivery, with high sulcal laceration with hemorrhage an d repair in OR, PPD# 1 Recovering appropriately Anemia s/p PP hemorrhage, currently asymptomatic but mild tachycardia, suspect low volume a t this time, will give 1 liter bolus of NS Monitor vitals and for symptoms of anemia. If symptomatic and/or continued heavy lochia will repeat CBC this evening. Otherwise will c ontinue to monitor vitals and for symptoms. Fernandez catheter out this Am, however continue with I&Os to monitor adequate UOP Rh positive Will observe today, anticipate DC home tomorrow. Electronically Signed by: Jann Morales MD 11/08/2017 9:04 documen isma in this encounter H&P Notes Jann Morales MD - 11/07/2017 3:05 PM PST OB Admission History & Physical PATIENT NAME: Juanita Garcia : 1995 ADMISSION DATE: 11/07/2017 8:16 REASON FOR ADMISSION: labor TRANSFORMATION ANALYST HISTORY: OB History Para Term AB Living 1 SAB TAB Ectopic Molar Multiple Live Births Estimated Date of Delivery: 11/04/17 at 40w3d Patient presented with symptoms of early labor with possible SROM, however Amnisure sample was unable to be processed and there was not obvious rupture. Therefore patient was observed till Amnisure could be retested. In the interim patient progressed and was found to be 8 cm dilated. Therefore admission and PCN ppx was started immediately. Review of Systems: Negative except in HPI Past Medical History: No past medical history on file. Surgical History: No past surgical history on file. Family History: No family history on file. Prior To Admission Medications: Prescriptions Prior to Admission Medication Sig Dispense Refill 27-0.8 mg multivitamin tablet Take 1 tablet by mouth Twice daily breakfast/Bed time. Allergies: No Known Allergies Social History: The pt reports that she has never smoked. She has never used smokeless tobacco. She report s that she does not drink alcohol. LABS: PHYSICAL EXAM: Vital Signs on Arrival: Temp: 36 C (96.8 F) Pulse: 87 Resp: 18 SpO2: 99 % BP: 114/59 Vitals Signs (most recent): Temp: 37 C (98.6 F) Pulse: 70 Resp: 16 SpO2: 100 % BP: 129/ 70 Admission Weight: General: Alert and oriented Abdomen: Gravid, nontender, heart tones obtained Extremities: Trace edema, normal pulses Estimated Weight: 3400 gm Monitoring: Baseline: 140s Variability: moderate Accels: present Decels: absent CAT: 1 [place]: 3-4 in 10 minutes Vaginal Exam Dilation: 8 Effacement: 90 Station: 0 Membranes: possible rupture, unverified IMPRESSION: 22 y.o. 40w3d presents for labor Active Labor GBS postive Late care, however overall normal PLAN: Admit to L&D PCN for GBS Will augmentation labor as needed. Pain control per patient request Plan for vaginal delivery Jann Morales MD documen isma in this encounter Miscellaneous Notes Plan of Sosa Graham MSW - 11/09/2017 5:29 PM PSTProblem: Discharge Planning Goal: Patient will be discharged in a safe manner This CM went to meet the patient but she had discharged. Electronically signed by: LUCHO Qureshi 11/09/2017 17:28 lan of Dominga Lopez RN - 11/09/2017 4:00 PM PSTProblem: Patient Care Overview (Adult) Goal: Care Team Goals & Evaluation 1. Juanita will report pain acceptable 2 until 11/09/17 2. Juanita will remain hemodynamically stable demonstrated by stable VS, pp bleeding wdl FF, Labs wdl by 11/09/17 3. Juanita will remain free s/s of infection 11/09/17 STRATEGY TO ACHIEVE GOALS; Monitor VS prn/per policy, monitor I/O's. Assess for discomfort prn, provide medications or non-pharmacological interventions prn and reassess for effectiveness. Check labs in am.Enco urage early . Watch for changes in blood pressure, heart rate. Continue uterine fundal massage and monitor. If fundus remains boggy, Anticipate administration of uterotonic medications Accurately assess amount of blood loss (e.G., weigh perineal pads) Monitor/assess laceration/episiotomy site per policy or prn for foul smell, increase swelli ng,bruising, or hematomas. Outcome: Adequate for Discharge Date Met: 11/09/17 Goal Evaluation: Juanita's pain has been well controlled with motrin and norco. Her vi gustavo signs have been stable. She shows no s/s of infection. Pt given verbal and written disch arge instructions. Questions answered and she verbalizes understanding. Discharged to home i n stable condition with significant other and baby. lan of Care - Joanna Mendez RN - 11/09/2017 6:53 AM PSTProblem: Patient Care Overview (Adult) Goal: Care Team Goals & Evaluation 1. Juanita will report pain acceptable 2 until 11/09/17 2. Juanita will remain hemodynamically stable demonstrated by stable VS, pp bleeding wdl FF, Labs wdl by 11/09/17 3. Juanita will remain free s/s of infection 11/09/17 STRATEGY TO ACHIEVE GOALS; Monitor VS prn/per policy, monitor I/O's. Assess for discomfort prn, provide medications or non-pharmacological interventions prn and reassess for effectiveness. Check labs in am.Enco urage early . Watch for changes in blood pressure, heart rate. Continue uterine fundal massage and monitor. If fundus remains boggy, Anticipate administration of uterotonic medications Accurately assess amount of blood loss (e.G., weigh perineal pads) Monitor/assess laceration/episiotomy site per policy or prn for foul smell, increase swelli ng,bruising, or hematomas. Outcome: Improving Goal Evaluation: up ad gideon. indep to self care. Using motrin and norco prn for pain with adequate relief. B ottle feeding only. Needs to be frequently discouraged and reminded regarding risk with co-s leeping. Verbalizes understanding, does not demonstrate. Will continue to reinforce educatio n. lan of Ashlee Major RN - 11/08/2017 7:47 PM PSTProblem: Patient Care Overview (Adult) Goal: Care Team Goals & Evaluation 1. Juanita will report pain acceptable 2 until 11/09/17 2. Juanita will remain hemodynamically stable demonstrated by stable VS, pp bleeding wdl FF, Labs wdl by 11/09/17 3. Juanita will remain free s/s of infection 11/09/17 STRATEGY TO ACHIEVE GOALS; Monitor VS prn/per policy, monitor I/O's. Assess for discomfort prn, provide medications or non-pharmacological interventions prn and reassess for effectiveness. Check labs in am.Enco urage early . Watch for changes in blood pressure, heart rate. Continue uterine fundal massage and monitor. If fundus remains boggy, Anticipate administration of uterotonic medications Accurately assess amount of blood loss (e.G., weigh perineal pads) Monitor/assess laceration/episiotomy site per policy or prn for foul smell, increase swelli ng,bruising, or hematomas. Outcome: Improving Goal Evaluation: Juanita Fundus remains firm, flow light. Urinary output a little low. Monitoring closely, a nd encouraging PO fluids. Bonding with baby noted. lan of Celena Major RN - 11/08/2017 2:50 PM PSTThis RN provided update to Dr. Morales regarding IV inf iltration, and patient not receiving full ordered NS bolus. Also reported current pulse valu e, urine output values and trend. reports it is okay to not restart IV, to encourage PO a nd continue strict I&Os. Pt informed. Electronically signed by Celena Valentin RN at 2016 2:53 PM PSTPlan of Celena Major RN - 11/08/2017 12:10 PM PSTpatient reports her IV site is now painful. IV infiltrated with edema noted to the forearm. IV NS bolus sto pped and IV removed, cath tip intact. Warm infant warmer packs and warm blankets applied. El ectronically signed by Celena Valentin RN at 11/08/2017 12:15 PM PSTPlan of Ayanna Major RN - 11/08/2017 9:48 AM PSTFoley removed, FF , light flow. patient up to shower wit h steady gait. lan of America Romero RN - 11/08/2017 9:12 AM PSTDr Morales at bedside to remove vaginal p acking Two laps removed from the vagina Minimal bleeding noted lan of Celena Major RN - 11/08/2017 7:55 AM PSTAssumed care. patient sleeping without s/s of distress. lan of Tripp Lacy RN - 2016 2:57 AM PSTProblem: Patient Care Overview (Adult) Goal: Care Team Goals & Evaluation 1. Juanita will report pain acceptable 2 until 11/09/17 2. Juanita will remain hemodynamically stable demonstrated by stable VS, pp bleeding wdl FF, Labs wdl by 11/09/17 3. Juanita will remain free s/s of infection 11/09/17 STRATEGY TO ACHIEVE GOALS; Monitor VS prn/per policy, monitor I/O's. Assess for discomfort prn, provide medications or non-pharmacological interventions prn and reassess for effectiveness. Check labs in am.Enco urage early . Watch for changes in blood pressure, heart rate. Continue uterine fundal massage and monitor. If fundus remains boggy, Anticipate administration of uterotonic medications Accurately assess amount of blood loss (e.G., weigh perineal pads) Monitor/assess laceration/episiotomy site per policy or prn for foul smell, increase swelli ng,bruising, or hematomas. Outcome: Unchanged Goal Evaluation: VSS, pain well controlled, fernandez remains in until tomorrow, per doctors order. Pt attentiv e to baby lan of Care - Tripp Donahue RN - 11/07/2017 8:57 PM [id number]) assumed care, assessment done...WNLpt den ies pain, nausea or any complaints. IV to saline lock., pt eating dinner..Electronically sig augustina by Tripp Phillips RN at 11/07/2017 9:02 PM PSTPlan of Care - Celena Valentin RN - 11/07/2017 7:30 PM PSTProblem: Patient Care Overview (Adult) Goal: Care Team Goals & Evaluation PROBLEM-RELATED GOALS: 1. Juanita will have of viable by 11/08/17 2. Juanita will not demonstrate any s/s of infection as evidenced by maternal fever, t achycardia, foul smelling amniotic fluid by 11/08/17 3. Juanita will demonstrate progression of labor as evidenced by cervical change every 4 keyonna rs by 11/08/17 4. Juanita will rate pain as tolerable or </= 3/10 by 11/08/17 STRATEGY TO ACHIEVE GOALS: 1.Adjust maternal position as indicated to relieve cord compression, promote comfort and fa cilitate the delivery process Correlate maternal clinical status to stage of labor, labor progress, uterine activity, fet al heart rate tracing, and position Perform vaginal exam(s) to assess descent Assist with positioning/pressure application/maneuvers to facilitate the birthing process Anticipate the need for emergent delivery if indicated 2. Verify Group B streptococcus status and presence of known infection(s) Promote perineal hygiene Limit vaginal exams during labor Assist with obtaining cultures, as indicated Provide fever/comfort measures 3. ssess uterine activity pattern Consider insertion of intrauterine pressure catheter, if not already in place Evaluate heart rate tracing/well-being; assess for variability and presence of accele rations Promote/facilitate voiding at least every two hours Adjust maternal position every 30 minutes (e.g., lateral, upright, on knees, use of birthin g ball) Anticipate need for pharmacotherapy to facilitate the labor process 4. Use a consistent pain scale for regular/frequent assessment Mutually determine/review pain management plan regularly Consider the presence of pre-existing persistent pain Recognize need to maintain chronic regimen with additional dosing to manage acute pain Encourage/facilitate nonpharmacologic pain techniques (e.g., hydrotherapy, relaxation) Assist with positioning for comfort Respect wishes for alternative pain relief methods PROBLEM-RELATED GOALS: Outcome: Improving Goal Evaluation: Juanita progressed naturally through labor and tolerated labor without pain medications, an d utilized the Jacuzzi. She remained free of s/s of infection. Category 1 EFM through labor. Post she demonstrates hemodynamic stability, FF @ U, and flow light. She is bottle f eeding baby per her request. lan of Care - Celena Valentin RN - 11/07/2017 7:20 PM PSTReport to Tripp MUELLER p Note - Jann Morales MD - 11/07/20 17 6:06 PM PSTDATE OF SURGERY: 11/07/2017 OPERATING SURGEON: Jann Morales MD PREOPERATIVE DIAGNOSIS: 1. 22 y.o. with high right sulcal laceration after 2. hemorrhagia from laceration. POSTOPERATIVE DIAGNOSIS: Same OPERATION PERFORMED: Repair of Sulcal vaginal laceration. FINDINGS: 1) cervix, however intact without laceration. 2) High right sulcal laceration with moderate separation of vaginal mucosa from pelvic side wall. 3) Small second degree laceration 4) Excellent approximation and hemostasis at conclusion of repair. SPECIMEN REMOVED: None ANESTHESIA: Propofol sedation INCISIONS: none BLOOD LOSS: 400 mL including clots removed at beginning of repair, Total including delivery EBL 800 mL. UOP: Minimal with placement of fernandez catheter. IVF: 500 mL. BLOOD PRODUCTS: None. DRAINS: Fernandez catheter POSTOPERATIVE CONDITION: Good PROGNOSIS: Good WOUND: Clean, contaminated. DESCRIPTION OF OPERATIVE REPORT: After the risks and benefits of the procedure were reviewe d and informed consent was obtained, the patient was taken to the operating room, where she underwent anesthesia. She was placed in the dorsal supine position. The four lap sponges brandi t were placed for packing in L&D were removed, backed up blood clot was removed. Adequate ex posure was achieved and laceration was followed up to its origin near the cervical vaginal j unction. There was some extension beyond the mucosal apex. A 2-0 Vicryl suture was used to s ecure the apex of the laceration and a running locking suture was done incorporation pelvic sidewall tissue to obliterate potential space and prevent pelvic hematoma formation. This de dios ture was carried down to the hymenal ring. A second suture of 3-0 Vicryl was then used to ap proximate the mucosal edges of the laceration and achieve good hemostasis and mucosal approx imation for optimal healing. This was carried down with a running suture to the hymenal ring at which point a crown stitch was placed and the small 2nd degree laceration was repaired i n the usual fashion. Excellent approximation and hemostasis was noted. Again the suture line was inspected and the cervix visualized. All clots were removed. And there was minimal blee ding from the vaginal or uterus. Vagina was then packed with two lap sponges with antibiotic ointment applied to help compress the vaginal sidewall and prevent hematoma from forming. F oley catheter was placed for bladder drainage while packing is in place. Patient tolerated p rocedure well with anesthetic sedation. Local was injected into the suture line to help with post repair pain. Lap sponge, needle and instrument counts were correct. Patient was moved to recovery in stable condition. Jann Morales MD lan of Delfino - Celena Valentin RN - 11/07/2017 6:00 PM PSTPatient received from recovery . Pt den ies pain just slight discomfort to her bottom. Pitocin restarted @ 100/hr per protocol. FF @ U, light flow. Fernandez with small amount of dark urine present. Education provided regarding plan for the evening. Plan of Delfino - Celena Valentin RN - 11/07/2017 4:45 PM PSTpatient transferred to OR for re pair. Consent signed and in chart. &D Delivery Note - Jann Morales MD - 11/07/2017 4:24 PM PST OBSTETRICAL VAGINAL DELIVERY NOTE Admission Diagnosis: 1. Intrauterine at 40w3d 2. Active labor 3. SROM 4. GBS positive status Post-Delivery Diagnosis: same including 3. Delivered Procedure: Normal Spontaneous Vaginal Delivery Delivering Physician: Jann Morales MD Findings: Information for the patient's : Mohit Garcia [[id number]] Delivery Date: 11/07/2017 Delivery Time: 1522 Baby: Baby Ashley Garcia Sex: female Weight: 8 lb 6.6 oz (3816 g) Height: 20" Head circumference: 33 cm APGARS One minute Five minutes Ten minutes Totals: 8 9 Placenta delivered spontaneously intact with 3 vessel cord with uterine massage. Lacerations: There was an extensive right sulcal laceration with extension into a 2nd degre e laceration. Unable to repair in delivery room due to poor visualization. Therefore patient was taken to OR for better visualization and retraction for repair. EBL: 400 ml in the delivery room Anesthesia: None Pre-delivery course: Juanita Garcia is a 22 y.o., who presented at 40w3d wit h early labor and uncertain status of membranes. Lab was unable to process Amnisure and jarrell ent did not have persistent or significant leaking. Therefore patient was observed until amn isure could be repeated. However in the interval time patient progressed into active labor a nd was found to be 8 cm dilated. Therefore patient was admitted and PCN was given. Patient p rogressed normally and became completely dilated. Baby remained CAT 1. Description of delivery: I was called for delivery as the patient felt urge to push and was ready for delivery. Patient gave good pushing effort. head was delivered spontaneously without complicati on. The anterior shoulder was then delivered spontaneously and without complication. The rem ainder of the delivery was uncomplicated and atraumatic. The baby was placed directly on th e mother's abdomen. Delayed cord clamping was done for 60 seconds. The cord was then clamped times two and subsequently cut by the baby's father. Cord blood was collected. An oxytocin infusion was then started and the placenta was removed spontaneously and found to be intact with a three vessel cord. Massage of the uterine fundus noted good tone. Insp ections for lacerations showed extensive sulcal laceration (see above for details). Due to poor visualization vagina was packed for hemostasis and patient was taken to OR for optimal repair of the laceration. The patient tolerated the delivery well. Sponge, instrument, and needle counts were correct times two. Electronically Signed by: Jann Morales MD 11/08/2017 9:03 lan of Celena Major RN - 11/07/2017 3:38 PM PSTRepair in progress lan of Celena Major RN - 11/07/2017 3:06 PM PSTMD at bedside. Patient positioned to push. gowned and patient instructed on pushing. 1516: patient pushing effectively with contractions. 1522: Head delivers and shoulders and body follow easily, cord allowed to pulsate then clam ped. Baby placed on maternal abdomen and received by baby RN. lan of Celena Major RN - 11/07/2017 2:0 5 PM PSTpatient assisted out of [facility] .Patient reports "I feel like I need to push". Jasmi n assisted immediatly to bed and SVE performed and is now 8, 90% and 1. insurance healthcare consultant notified. Patient instructed by this Rn to breath effectively when feeling the urge to push and instr ucted it this not time to push yet. Patient very attentive and breathing calmly and effectiv marcos. 1421: MD notified of current status. Orders received. 1425: patient Educated and offered pain management options. Pt reports she is okay now. El ectronically signed by Celena Valentin RN at 11/07/2017 2:54 PM PSTPlan of Ayanna Major RN - 11/07/2017 1:35 PM PSTpatient moving around frequently in bed related to disco mfort with contractions. Patient assisted up to Jacuzzi at this time. Monitors removed. EFM tracing has been cat 1. P STPlan of Celena Major RN - 11/07/2017 10:53 AM PSTAssumed care. Patient sleeping at this time with no s/s of discomfort. category EFM tracing. lan of Lisa Esparza RN - 11/07/2017 10:00 AM PSTMedicated with Vistaril IM for pain. lan Lisa Robertson RN - 11/07/2017 9:30 AM PSTLab calls to state they never received amnisure sample. Unable to obtain a new sample unt il 6 hours after last cervical exam. Electronically signed by Lisa Swenson RN at 10/13 10:04 AM PSTPlan Lisa Robertson RN - 11/07/2017 8:20 AM PSTAmnisure sample obtained and sent to lab. Cervical exam with some change from last check in the offic e, light bloody show noted. 10 :03 AM PSTPlan Lisa Robertson RN - 11/07/2017 8:16 AM PSTPresents to labor and delivery with c/o leaking of clear fluids since 0440 today, also contractions since 0500 states pain is 9/10 with the contraction and has noticed some bloody show when she wipes. S tates good movement. At her last appointment with Dr Morales she was 1cm dilated. Placed on monitor, heart rate easily found. Contraction palpated mild. documented in this encounter Plan of Treatment + + +--------+ + + | Name | Type | Priori | Associated Diagnoses | Order Schedule | | | | ty | | | + + +--------+ + + | Amb referral to | Outpatient | Routin | care | 1 Occurrences | | | Referral | e | and examination | starting 11/09/2017 | | | | | | until 11/07/2018 | + + +--------+ + + | Ambulatory referral | Outpatient | Routin | care | 1 Occurrences | | to | Referral | e | and examination | starting 11/09/2017 | | | | | | until 11/07/2018 | + + +--------+ + + documented as of this encounter Procedures + +--------+ + + + | Procedure Name | Priori | Date/Time | Associated Diagnosis | Comments | | | ty | | | | + +--------+ + + + | CBC NO DIFFERENTIAL | Routin | 11/08/2017 | | Results for this | | | e | 5:55 AM | | procedure are in the | | | | PST | | results section. | + +--------+ + + + | REPAIR LACERATION | | 11/07/2017 | Laceration | | | VAGINAL | | 4:46 PM | | | | | | PST | | | + +--------+ + + + | CBC NO DIFFERENTIAL | STAT | 11/07/2017 | | Results for this | | | | 2:49 PM | | procedure are in the | | | | PST | | results section. | + +--------+ + + + | TYPE AND SCREEN | STAT | 11/07/2017 | | Results for this | | | | 2:49 PM | | procedure are in the | | | | PST | | results section. | + +--------+ + + + documented in this encounter Results CBC no Differential (11/08/2017 5:55 AM PST) + + + + + + | Component | Value | Ref Range | Performed | Pathologist | | | | | At | Signature | + + + + + + | White Blood | 13.6 (H) | 4.0 - 11.0 K/uL | [facility] | | | Cells | | | [facility] | | | | | | [facility] | | | | | [facility] - | | | | | | LABORATORY | | + + + + + + | Red Blood | 3.22 (L) | 3.70 - 5.20 | [facility] | | | Cells | | M/uL | [facility] | | | | | | [facility] | | | | | | [facility] - | | | | | | LABORATORY | | + + + + + + | Hemoglobin | 8.3 (L) | 11.5 - 16.0 | [facility] | | | | | g/dL | [facility] | | | | | | [facility] | | | | | | [facility] - | | | | | | LABORATORY | | + + + + + + | Hematocrit | 25.6 (L) | 34.0 - 47.0 % | [facility] | | | | | | [facility] | | | | | | [facility] | | | | | | [facility] - | | | | | | LABORATORY | | + + + + + + | MCV | 79.3 (L) | 83.0 - 101.0 fL | [facility] | | | | | | [facility] | | | | | | [facility] | | | | | | [facility] - | | | | | | LABORATORY | | + + + + + + | MCH | 25.8 (L) | 28.0 - 35.0 pg | [facility] | | | | | | [facility] | | | | | | [facility] | | | | | | [facility] - | | | | | | LABORATORY | | + + + + + + | MCHC | 32.5 | 32.0 - 36.0 | [facility] | | | | | g/dL | [facility] | | | | | | [facility] | | | | | | [facility] - | | | | | | LABORATORY | | + + + + + + | RDW-CV | 14.4 | <15.0 % | [facility] | | | | | | [facility] | | | | | | [facility] | | | | | | [facility] - | | | | | | LABORATORY | | + + + + + + | Platelet | 285 | 140 - 440 K/uL | [facility] | | | Count | | | [facility] | | | | | | [facility] | | | | | | [facility] - | | | | | | LABORATORY | | + + + + + + | MPV | 8.7 | fL | [facility] | | | | | | [facility] | | | | | | [facility] | | | | | | [facility] - | | | | | | LABORATORY | | + + + + + + + + | Specimen | + + | Blood | + + + + + + + | Performing | Address | City/State/Zipcode | Phone Number | | Organization | | | | + + + + + | [facility] | [address] | [place] | [phone] | | [facility] | | [address] | | | - LABORATORY | | | | + + + + + CBC no Differential (11/07/2017 2:49 PM PST) + + + + + + | Component | Value | Ref Range | Performed | Pathologist | | | | | At | Signature | + + + + + + | White Blood | 15.0 (H) | 4.0 - 11.0 K/uL | [facility] | | | Cells | | | [facility] | | | | | | [facility] | | | | | | [facility] - | | | | | | LABORATORY | | + + + + + + | Red Blood | 4.79 | 3.70 - 5.20 | [facility] | | | Cells | | M/uL | [facility] | | | | | | [facility] | | | | | | C[facility] - | | | | | | LABORATORY | | + + + + + + | Hemoglobin | 12.2 | 11.5 - 16.0 | [facility] | | | | | g/dL | [facility] | | | | | | [facility] | | | | | | C[facility] - | | | | | | LABORATORY | | + + + + + + | Hematocrit | 37.8 | 34.0 - 47.0 % | [facility] | | | | | | [facility] | | | | | | [facility] | | | | | | [facility] - | | | | | | LABORATORY | | + + + + + + | MCV | 78.8 (L) | 83.0 - 101.0 fL | [facility] | | | | | | [facility] | | | | | | [facility] | | | | | | [facility] - | | | | | | LABORATORY | | + + + + + + | MCH | 25.5 (L) | 28.0 - 35.0 pg | [facility] | | | | | | [facility] | | | | | | [facility] | | | | | | [facility] - | | | | | | LABORATORY | | + + + + + + | MCHC | 32.3 | 32.0 - 36.0 | [facility] | | | | | g/dL | [facility] | | | | | | [facility] | | | | | | CENTER - | | | | | | LABORATORY | | + + + + + + | RDW-CV | 13.9 | <15.0 % | [facility] | | | | | | [facility] | | | | | | [facility] | | | | | | [facility] - | | | | | | LABORATORY | | + + + + + + | Platelet | 333 | 140 - 440 K/uL | [facility] | | | Count | | | [facility] | | | | | | [facility] | | | | | | C[facility] - | | | | | | LABORATORY | | + + + + + + | MPV | 9.1 | fL | [facility] | | | | | | [facility] | | | | | | [facility] | | | | | | [facility] - | | | | | | LABORATORY | | + + + + + + + + | Specimen | + + | Blood | + + + + + + + | Performing | Address | City/State/Zipcode | Phone Number | | Organization | | | | + + + + + | [facility] | [address] | [place] | [phone] | | [facility] | | [address] | | | - LABORATORY | | | | + + + + + Type and Screen (11/07/2017 2:49 PM PST) + + + + + + | Component | Value | Ref Range | Performed | Pathologist | | | | | At | Signature | + + + + + + | ABO | O | | [facility] | | | | | | [facility] | | | | | | [facility] | | | | | | [facility] - | | | | | | BLOOD BANK | | + + + + + + | Rh Type | Positive | | [facility] | | | | | | [facility] | | | | | | [facility] | | | | | | [facility] - | | | | | | BLOOD BANK | | + + + + + + | Antibody | Negative | | [facility] | | | Screen | | | [facility] | | | | | | MEDICAL | | | | | | CENTER - | | | | | | BLOOD BANK | | + + + + + + + + | Specimen | + + | Blood | + + + + + + + | Performing | Address | City/State/Zipcode | Phone Number | | Organization | | | | + + + + + | [facility] | [address] | [place], [place] | | | [facility] | | [address] | | | - BLOOD BANK | | | | + + + + + documented in this encounter Visit Diagnoses Not on filedocumented in this encounter Administered Medications + +--------+ +------+------+------+ | Medication Order | MAR | Action | Dose | Rate | Site | | | Action | Date | | | | + +--------+ +------+------+------+ | benzocaine 20%-menthol | Given | 11/08/20 | | | | | (DERMOPLAST) topical spray | | 17 9:42 | | | | | Topical, EVERY 6 HOURS PRN, Pain, | | AM PST | | | | | Starting 11/07/17 at 1841, | | | | | | | | | | | | | + +--------+ +------+------+------+ +---+---+ | | | +---+---+ + +-------+ +--------+---+ + | bupivacaine 0.25%-EPINEPHrine | Given | 11/07/20 | 10 mLs | | Surgical | | 1:200,000 injection PRN, | | 17 5:37 | | | Site | | Starting 11/07/17 at 1737, | | PM PST | | | | | Intra-op | | | | | | + +-------+ +--------+---+ + +---+---+ | | | +---+---+ + +-------+ + +---+ + | clindamycin (CLEOCIN) 2% | Given | 11/07/20 | 2 | | Surgical | | vaginal cream PRN, Starting Wed | | 17 5:37 | applicat | | Site | | 11/07/17 at 1727, Intra-op | | PM PST | ors | | | + +-------+ + +---+ + +---+---+ | | | +---+---+ + +-------+ +--------+---+---+ | docusate sodium (COLACE) | Given | 11/08/20 | 200 mg | | | | capsule 200 mg 200 mg, Oral, | | 17 9:06 | | | | | NIGHTLY, First dose on Sun | | PM PST | | | | | 11/07/17 at 2100, Hold for loose | | | | | | | stools, | | | | | | + +-------+ +--------+---+---+ +-------+ +--------+---+---+ | Given | 11/07/20 | 200 mg | | | | | 17 9:06 | | | | | | PM PST | | | | +-------+ +--------+---+---+ +---+---+ | | | +---+---+ + +-------+ + +---+---+ | HYDROcodone-acetaminophen | Given | 11/09/20 | 1 tablet | | | | (NORCO) 5-325 mg per tablet 1-2 | | 17 6:06 | | | | | tablet 1-2 tablet, Oral, EVERY 4 | | AM PST | | | | | HOURS PRN, Pain, Starting Wed | | | | | | | 11/07/17 at 1841, If ineffective | | | | | | | or not tolerated, use oxycodone | | | | | | | if ordered., | | | | | | + +-------+ + +---+---+ +-------+ + +---+---+ | Given | 11/08/20 | 1 tablet | | | | | 17 2:27 | | | | | | PM PST | | | | +-------+ + +---+---+ | Given | 11/08/20 | 1 tablet | | | | | 17 9:39 | | | | | | AM PST | | | | +-------+ + +---+---+ +---+---+ | | | +---+---+ + +-------+ +--------+---+---+ | ibuprofen (ADVIL,MOTRIN) tablet | Given | 11/09/20 | 600 mg | | | | 600 mg 600 mg, Oral, EVERY 6 | | 17 2:59 | | | | | HOURS PRN, Pain, Starting [place] | | PM PST | | | | | 11/08/17 at 1945, If urine output | | | | | | | is less than 240 mL/8 hours (30 | | | | | | | mL/hr) or if signs of bleeding, | | | | | | | contact MD and hold ibuprofen., | | | | | | | | | | | | | + +-------+ +--------+---+---+ +-------+ +--------+---+---+ | Given | 11/09/20 | 600 mg | | | | | 17 6:06 | | | | | | AM PST | | | | +-------+ +--------+---+---+ +---+---+ | | | +---+---+ + +-------+ + +---+---+ | 27-0.8 mg multivitamin | Given | 11/08/20 | 1 tablet | | | | 1 tablet 1 tablet, Oral, Twice | | 17 9:06 | | | | | daily breakfast/Bedtime, First | | PM PST | | | | | dose on Sun11/07/17 at 2100, | | | | | | | | | | | | | + +-------+ + +---+---+ +-------+ + +---+---+ | Given | 11/08/20 | 1 tablet | | | | | 17 9:46 | | | | | | AM PST | | | | +-------+ + +---+---+ | Given | 11/07/20 | 1 tablet | | | | | 17 9:06 | | | | | | PM PST | | | | +-------+ + +---+---+ +---+---+ | | | +---+---+ + +-------+ +--------+---+---+ | ann-marie AMATO) pads 1 each | Given | 11/08/20 | 1 each | | | | 1 each, Topical, EVERY 1 HOUR | | 17 9:46 | | | | | PRN, Discomfort, Starting Wed | | AM PST | | | | | 11/07/17 at 1841, | | | | | | + +-------+ +--------+---+---+ +---+---+ | | | +---+---+ documented in this encounter
--- OUTSIDE RECORDS SUMMARY | ~2020-07-22 | XMS | Encounter Summary ---
Demographics + + + | Address | [address] | | | [place] [address] | + + + | Home Phone | | + + + | Preferred Language | Unknown | + + + | Marital Status | Single | + + + | Synagogue Affiliation | [id number] | + + + | Race | Unknown | + + + | Ethnic Group | Unknown | + + + Author + + + | Author | [facility] | | | and [place] | + + + | Organization | [facility] | | | and [...] Team Providers + +------+ + | Care Core Mounter Name | Role | Phone | + +------+ + PCP | Unavailable | + +------+ + Encounter Details +--------+ + + + + | Date | Type | Department | Care Team | Description | +--------+ + + + + | 04/10/ | Hospital | [facility] | | | | 1993 | Encounter | [facility] | | | | | | [address] | | | | | | [place] | | | | | | [address] | | | | | | [phone] | | | +--------+ + + + [...]
--- OUTSIDE RECORDS SUMMARY | ~2020-07-22 | XMS | Encounter Summary ---
Demographics + + + | Address | [address] | | | [place] [address] | + + + | Home Phone [...] Author + + + | Author | [facility] | + + + | Organization | [facility] | + + + | Address | Unknown | + + + | Phone | Unavailable | + + + Support + + +---------+ + | Name | Relationship | Address | Phone | + + +---------+ + | Lorie Teran | ECON | Unknown | | + + +---------+ + Care Team Providers + +------+ + | Care Director Of Digital Platforms Name | Role | Phone | + [...] | Closed | | Ophthalmology | | Negrito, | Oc, | | | | | | Tereza T, [employer] | Abraham Rosado, OD | | | | | | [address] | [address] | | | | | | [place] | [place] | | | | | | [place] | [place], [place] | | | | | | [address] | [address] | | | | | | Phone: | Phone: | | | | | | [phone] | [phone] | | | | | | Fax: | Fax: | | | | | | [phone] | [phone] | +--------+--------+ + + + + Encounter Details +--------+---------+ + + + | Date | Type | Department | Care Team | Description | +--------+---------+ + + + | 12/03/ | Office | [facility] | Chacorta Vincent, OD | Keratoconus, | | 2013 | Visit | [facility] | [address] | unspecified (Primary | | | | ogy at [address] | [facility] [place] | Dx); Irregular | | | | [address] [facility] for | [address] | astigmatism | | | | Health and Healing, | [phone] | | | | | [facility] | | | | | | Floor [place], [place] | | | | | | [address] | | | | | | [phone] | | | +--------+---------+ + + + [...] this encounter Patient Instructions Patient Instructions Chacorta Vincent, OD - 12/03/2013 11:50 AM PSTFor filling bowl of lens and r insing: Sodium Chloride inhalation solution prison 0.9% Available over the counter at pharmacies and on Bin1 ATE For cleaning and storing: Garfield Simplus Clear Care hydrogen peroxide Optimum by [employer] documented in this encounter Progress Notes Chacorta Vincent, OD - 12/03/2013 11:11 AM PST 09/30/2013 NS #1 Lens design BC Rx OAD/CT OZ PC1/Corneal zone PC2/Limbal zone PC3/Scleral zone PC4/Edg e zone material Tint RE Barron 46.00 -9.00 15.80 8.40 7.54 (1.7) 8.7 (0.9) 12.75 (0.7) 14.25 (0.4) [place]-97 (plasma) clear LE Barron 45.00 -8.00 15.80 8.40 7.70 (1.7) 8.7 (0.9) 12.75 (0.7) 14.25 (0.4) [place]-97 (plasma) blue Lens [employer]: [facility] [place] [facility] Fit OD +-0.50 20/NI 200 central, debris trapped, 300 inferior clearance, scleralalignment, tear exchange present OS +0.50 20/sharper? 100 over apex, 150 midperipheral clearance, inferior 200 clearance, sc leral alignment, tear exchange present; may need to go steeper--> check at next visit Chief Complaint Patient presents with Gas-permeable contact lens Here for dispense application and removal training No ophthamicAgents medications on file See EPIC notes for Ophthalmology Exam Findings Reviewed systems for: fever, wt. loss, ENT, cardiovascular, pulmonary, GI, urinary, neurolo gic, endocrine, bleeding/blood disorders, AIDS/HIV, cancer/tumors, arthritis - all were nega tive except as noted above. 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 DIspensed lenses, NaCl inhalation, DMV removers, Garfield simplus. RTC in 2 weeks for medical evaluation of cornea while lenses are applied. Keratoconus fit fee dropped today . May need to go steeper for left lens. documented in this encounter Plan of Treatment Not on filedocumented as of this encounter Procedures + +--------+ + + + | Procedure Name | Priori | Date/Time | Associated Diagnosis | Comments | | | ty | | | | + +--------+ + + + | [place] FITTING CONTACT | Routin | 12/03/2013 | Keratoconus, | | | LENS FOR MGMT | e | 11:49 AM | unspecified | | | KERATOCONUS, INITIAL | | PST | Irregular | | | FITTNG | | | astigmatism | | + +--------+ + + + documented in this encounter Visit Diagnoses + + | Diagnosis | + + | Keratoconus, unspecified - Primary | + + | Irregular astigmatism | + + documented in this encounter"
--- OUTSIDE RECORDS SUMMARY | ~2020-07-22 | XMS | Encounter Summary ---
Demographics + + + | Address | [address] | | | [place] [address] | + + + | Home Phone | | + + + | Preferred Language | Unknown | + + + | Marital Status | Single | + + + | Moravian Affiliation | [id number] | + + + | Race | Unknown | + + + | Ethnic Group | Unknown | + + + Author + + + | Author | [facility] | | | and [place] | + + + | Organization | [facility] | | | [...] Team Providers + +------+ + | Care Inspector Ball Points Name | Role | Phone | + +------+ + PCP | Unavailable | + +------+ + Encounter Details +--------+ + + + + | Date | Type | Department | Care Team | Description | +--------+ + + + + | 09/18/ | Hospital | [facility] | Jann Morales | Primigravida in | | 2017 | Encounter | [address] | Bill Vargas MD | third trimester | | | | [place] | [address] | | | | | [address] | [place] | | | | | [phone] | [address] | | | | | | [phone] | | +--------+ + + + + [...] +--------+ + + + | US OB 14 + WEEKS | Routin | 09/18/2017 | Primigravida in | Results for this | | SINGLE OR FIRST | e | 12:50 PM | third trimester | procedure are in the | | GESTATION | | PST | | results section. | + +--------+ + + + documented in this encounter Results US OB 14 + Week Singl or First Gestation (09/18/2017 12:50 PM PST) + + | Specimen | + + | | + + + + -----+ | Narrative | Performed At | + + -----+ | US OB 14 + | [facility] | | WEEKS SINGLE OR FIRST GESTATION 09/18/2017 12:50 PM HISTORY: US OB 14 | | | + Week Singl or First Gestation. COMPARISON: None. PROTOCOL: Saez | | | scale and Doppler images of the fetus with transabdominalimaging. | | | FINDINGS:EGA by LMP of 33 weeks 2 days. The estimated delivery date is | | | 11/04/2017. BPD: 8.5 cm, 34 weeks 1 dayHC: 30.4 cm, 33 weeks 6 | | | daysAC: 29.96 cm, 34 weeks 0 daysFL: 6.6 cm, 34 weeks 0 daysEFW: 2313 | | | g, US percentile 63%Cephalic index: 82.8 (normal range 70.0-86.0)HC/AC | | | ratio: 1.01Fetal heart rate: 139 bpm, with a normal cardiac rhythm.A | | | single gestation is seen.The cervix is long and closed, measuring 3.96 | | | cm in length.Placenta previa is absent. position: | | | CephalicPlacental position: AnteriorAmniotic fluid: Normal | | | Anatomy:Upper extremities, upper extremities, kidneys, | | | intracranial contents,spine, cord insertion, abdominal wall, and right | | | ventricular outflow tract werepoorly visualized due to patient body | | | habitus.There is a three-vessel cord. Four-chamber heart and left | | | ventricular outflowtract appears normal.Atrium of lateral ventricle: | | | Unable to be measured.Cerebellar diameter: Unable to be measured. | | | IMPRESSION -Single live fetus, growth concordant with dates by LMP. | | | Estimated gestational age by ultrasound: 34 weeks 0 days Upper | | | extremities, upper extremities, kidneys, intracranial | | | contents,spine, cord insertion, abdominal wall, and right ventricular | | | outflow tract werepoorly visualized due to patient body habitus. | | | Dictated and Signed by: Jaime Jarquin MD Electronically signed: | | | 09/19/2017 1:32 PM | | |Placental position: Anterior | | |Amniotic fluid: Normal | | | | | | Anatomy: | | |Upper extremities, upper extremities, kidneys, intracranial contents, | | |spine, cord insertion, abdominal wall, and right ventricular outflow tract were | | |poorly visualized due to patient body habitus. | | |There is a three-vessel cord. Four-chamber heart and left ventricular outflow | | |tract appears normal. | | |Atrium of lateral ventricle: Unable to be measured. | | |Cerebellar diameter: Unable to be measured. | | | | | |IMPRESSION - | | |Single live fetus, growth concordant with dates by LMP. | | | | | |Estimated gestational age by ultrasound: 34 weeks 0 days | | | | | |Upper extremities, upper extremities, kidneys, intracranial contents, | | |spine, cord insertion, abdominal wall, and right ventricular outflow tract were | | |poorly visualized due to patient body habitus. | | | | | |Dictated and Signed by: Jaime Jarquin MD | | | Electronically signed: 09/19/2017 1:32 PM | | | | | + + -----+ + + | Procedure Note | + + | Rajendra, Rad Results In - 09/19/2017 1:35 PM PST US OB 14 + WEEKS SINGLE OR FIRST | | GESTATION 09/18/2017 12:50 PM HISTORY: US OB 14 + Week Singl or First | | Gestation.COMPARISON: None.PROTOCOL: Saez scale and Doppler images of the fetus with | | transabdominalimaging.FINDINGS:EGA by LMP of 33 weeks 2 days. The estimated delivery | | date is 11/04/2017.BPD: 8.5 cm, 34 weeks 1 dayHC: 30.4 cm, 33 weeks 6 daysAC: 29.96 cm, | | 34 weeks 0 daysFL: 6.6 cm, 34 weeks 0 daysEFW: 2313 g, US percentile 63%Cephalic index: | | 82.8 (normal range 70.0-86.0)HC/AC ratio: 1.01Fetal heart rate: 139 bpm, with a normal | | cardiac rhythm.A single gestation is seen.The cervix is long and closed, measuring 3.96 | | cm in length.Placenta previa is absent. position: CephalicPlacental position: | | AnteriorAmniotic fluid: NormalFetal Anatomy:Upper extremities, upper extremities, | | kidneys, intracranial contents,spine, cord insertion, abdominal wall, and right | | ventricular outflow tract werepoorly visualized due to patient body habitus.There is a | | three-vessel cord. Four-chamber heart and left ventricular outflowtract appears | | normal.Atrium of lateral ventricle: Unable to be measured.Cerebellar diameter: Unable to | | be measured. IMPRESSION -Single live fetus, growth concordant with dates by | | LMP.Estimated gestational age by ultrasound: 34 weeks 0 daysUpper extremities, upper | | extremities, kidneys, intracranial contents,spine, cord insertion, abdominal wall, | | and right ventricular outflow tract werepoorly visualized due to patient body | | habitus.Dictated and Signed by: Jaime Jarquin MD Electronically signed: 09/19/2017 1:32 | | PM | |A single gestation is seen. | |The cervix is long and closed, measuring 3.96 cm in length. | |Placenta previa is absent. | | | | position: Cephalic | |Placental position: Anterior | |Amniotic fluid: Normal | | | | Anatomy: | |Upper extremities, upper extremities, kidneys, intracranial contents, | |spine, cord insertion, abdominal wall, and right ventricular outflow tract were | |poorly visualized due to patient body habitus. | |There is a three-vessel cord. Four-chamber heart and left ventricular outflow | |tract appears normal. | |Atrium of lateral ventricle: Unable to be measured. | |Cerebellar diameter: Unable to be measured. | | | |IMPRESSION - | |Single live fetus, growth concordant with dates by LMP. | | | |Estimated gestational age by ultrasound: 34 weeks 0 days | | | |Upper extremities, upper extremities, kidneys, intracranial contents, | |spine, cord insertion, abdominal wall, and right ventricular outflow tract were | |poorly visualized due to patient body habitus. | | | |Dictated and Signed by: Jaime Jarquin MD | | Electronically signed: 09/19/2017 1:32 PM | + + + +---------+ + + | Performing | Address | City/State/Zipcode | Phone Number | | Organization | | | | + +---------+ + + | [facility] | | | | + +---------+ + + documented in this encounter Visit Diagnoses + + | Diagnosis | + + | Primigravida in third trimester | + + documented in this encounter"
--- OUTSIDE RECORDS SUMMARY | ~2020-07-22 | XMS | Encounter Summary ---
Demographics + + + | Address | [address] | | | [place] [address] | + + + | Home Phone | | + + + | Preferred Language | Unknown | + + + | Marital Status | Single | + + + | Anabaptist Affiliation | Unknown | + + + | Race | or | + + + | Ethnic Group | Not or | + + + Author + + + | Author | [facility] | + + + | Organization | [facility] | + + + | Address | Unknown | + + + | Phone | Unavailable | + + + Support + + +---------+ + | Name | Relationship | Address | Phone | + + +---------+ + | Lorie Teran | ECON | Unknown | | + + +---------+ + Care Team Providers + +------+ + | Care Criminalist Name | Role | Phone | + [...] | | | | | Tereza T, CLERICAL SPECIALIST | Abraham J, OD | | | | | | [address] | [address] | | | | | | [place] | [place] | | | | | | [place] | [place], [place] | | | | | | [address] | [address] | | | | | | Phone: | Phone: | | | | | | [phone] | [phone] | | | | | | Fax: | Fax: | | | | | | [phone] | [phone] | +--------+--------+ + + + + Encounter Details +--------+---------+ + + + | Date | Type | Department | Care Team | Description | +--------+---------+ + + + | 01/06/ | Office | [facility] | Chacorta Vincent, OD | Keratoconus, | | 2013 | Visit | [place]/[facility]hthalmol | [address] | unspecified (Primary | | | | ogy at [address] | [facility], [place] | Dx); Irregular | | | | [address] [facility] for | [address] | astigmatism | | | | Health and Healing, | [phone] | | | | | [facility] | | | | | | Floor [place], [place] | | | | | | [address] | | | | | | [phone] | | | +--------+---------+ + + + [...] encounter Progress Notes Chacorta Vincent, OD - 01/06/2014 2:02 PM PST 09/30/2013 NS #1 Lens design Rx OAD/CT OZ PC1/Corneal zone PC2/Limbal zone PC3/Scleral zone PC4/Edg e zone material Tint RE [place] 46.00 -9.00 15.80 8.40 7.54 (1.7) 8.7 (0.9) 12.75 (0.7) 14.25 (0.4) Fargo-97 (plasma) clear LE [place] 45.00 -8.00 15.80 8.40 7.70 (1.7) 8.7 (0.9) 12.75 (0.7) 14.25 (0.4) Fargo-97 (plasma) blue Lens Intelligence Director: [facility] [place] [facility] Fit OD +-0.50 20/25 (NI) 150 central; 50 midperipheral vaulting over limbus, mucus buildup, scleral alig nment, tear exchange present OS +-0.50 20/20-2 (NI) 50 midperipheral inferior clearance, central near touch; feather mitch ch midperipheal superior tear exchange present, barely vaulting over limbus, scleral alignme nt, milder mucus buildup Steepen OS by 1.5 D centrally 09/30/2013 NS #2 Lens design Rx OAD/CT OZ PC1/Corneal zone PC2/Limbal zone PC3/Scleral zone PC4/Edg e zone material Tint RE [place] 46.00 -9.00 15.80 8.40 7.54 (1.7) 8.7 (0.9) 12.75 (0.7) 14.25 (0.4) Fargo-97 (plasma) clear LE [place] 46.50 -9.50 15.80 8.40 7.46 (1.7) 8.7 (0.9) 12.75 (0.7) 14.25 (0.4) Fargo-97 (plasma) blue Lens Intelligence Director: [facility] Chief Complaint Patient presents with Gas-permeable contact lens Gets murky after several hours; better after takes out then rinses; vision is great until after a few hours its murky; left eye one time when inserted lens it burned and bothersome b ut only one time and hasnt happened again; very happy with vision; applying and removing is getting easier No ophthamicAgents medications on file See EPIC notes for Ophthalmology Exam Findings Reviewed systems for: fever, wt. loss, ENT, cardiovascular, pulmonary, GI, urinary, neurolo gic, endocrine, bleeding/blood disorders, AIDS/HIV, cancer/tumors, arthritis - all were nega tive except as noted above. 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 Adjust OS parameters to avoid central touch. Discussed mucus buildup treatment is to rem ove lens, rinse out, and reapply. Ship to patient - Patient understands that the previous l ens must be returned to us to receive credit or be charged an additional cost for lenses. RT C in 2 weeks for medical evaluation of cornea with the lenses applied on. No changes to Rx n ecessary. documented in this encount er Miscellaneous Notes Scan - Albin, Faculty - 02/02/2014 11:36 AM PDTElectronically signed by Faculty Other at 11:36 AM PDTdocumented in this encounter Plan of Treatment Not on filedocumented as of this encounter Visit Diagnoses + + | Diagnosis | + + | Keratoconus, unspecified - Primary | + + | Irregular astigmatism | + + documented in this encounter"
--- OUTSIDE RECORDS SUMMARY | ~2020-07-22 | XMS | Encounter Summary ---
Demographics + + + | Address | [address] | | | [place] [address] | + + + | Home Phone | | + + + | Preferred Language | Unknown | + + + | Marital Status | Single | + + + | Taoist Affiliation | Unknown | + + + | Race | or | + + + | Ethnic Group | Not or | + + + Author + + + | Author | [facility] | + + + | Organization | [facility] | + + + | Address | Unknown | + + + | Phone | Unavailable | + + + Support + + +---------+ + | Name | Relationship | Address | Phone | + + +---------+ + | Lorie Teran | ECON | Unknown | | + + +---------+ + Care Team Providers + +------+ + | Care Aircraft Worker Name | Role | Phone | + +------+ + | Marc Agee MD | PCP | | + +------+ + Reason for Visit + + + | Reason | Comments | + + + | Return Patient | | + + + Office Visit - E/M Services (Routine) +--------+--------+ + + + + | Status | Reason | Specialty | Diagnoses / | Referred By | Referred To | | | | | Procedures | Contact | Contact | +--------+--------+ + + + + | Closed | | Ophthalmology | | Madhuri, | | | | | | | Ramon Rosado MD | Matt, | | | | | | [address] | Dago Mckeon MD | | | | | | [place] | [address] | | | | | | [place] | [place] | | | | | | [address] | [facility] | | | | | | | [place], [place] | | | | | | | [address] | | | | | | | Phone: | | | | | | | [phone] | | | | | | | Fax: | | | | | | | [phone] | +--------+--------+ + + + + Encounter Details +--------+---------+ + + + | Date | Type | Department | Care Team | Description | +--------+---------+ + + + | 05/25/ | Office | [facility] | Matt, | Keratoconus, acute | | 2016 | Visit | [place] [facility] at | Dago Mckeon MD [address] | hydrops, right | | | | [facility] [address] | [address] | (Primary Dx) | | | | [address] | [place], [place] | | | | | Eye [place], [facility] | [address] | | | | | [place], [place] | [phone] | | | | | [address] | [...] documented as of this encounter Progress Notes Dago Gutierrez MD - 05/25/2016 3:14 PM PDTFormatting of this note might be differ ent from the original. Cornea Division Progress Note 05/25/2016 Juanita Garcia is a 21 y.o. female who returns for urgent visit. Chief Complaint Patient presents with Return Patient urgent add-on for inflamed cornea and hazy OD, h/o KCN OU; pt was seen 2012. Pt woke up wit h a white spot in center of her visual axis and redness OD x 1 day ago, pt was seen by ED do moss in [place] who put her on Jennifer drop qid and tia qhs OD. Pt was to followup here. Pt f eels sharp pain OD and vision is completely cloudy. Pt denies sleeping with contact lens in, no CL since yesterday. VA is stable with current scleral lens OS. Pain: 8-achy to sharp. ROS: Medications, allergies, medical, surgical [...] Current Outpatient Prescriptions (Ophthalmic Medications) Medication Sig fluorometholone Instill 1 drop into both eyes two times daily. Indications: Allergic Co njunctivitis Current Outpatient Prescriptions (Other) Medication Sig sodium chloride Rx: 0.9% Sodium chloride inhalation solution, 5ml. Tray of 100; refill for 3 boxes Sig: Fill scleral lens completely before insertion into eyes [facility]#: [id number] All else unless noted was neg. (fever, wt. loss, ENT, cardiovascular, pulmonary, GI, urinar y, neurologic, endocrine, bleeding/blood disorders, AIDS/HIV, cancer/tumors, arthritis) Insulation Estimator Attestation: IAlexandrea, performed the above history, medications, allergie s, as well as performed elements noted in the Base Ophthalmology Exam. Examination: Base Exam Visual Acuity (Snellen - Linear) Right Left Dist sc HM Dist cc 20/40 scleral lens Dist ph sc NI Dist ph cc 20/20 Correction: Contacts Neuro/Psych Oriented x3: Yes Mood/Affect: Normal IMPRESSION: 1. Keratoconus-- Referred For Hydrops Which began 48 hours.--no signs of infection. 2. H/o eczema and h/o multiple hordeolums--non apparent today. Some Meibomian gland pitting , likey from previous inflammation 3. KCS PLAN: 1. Continue jennifer 128 drops in am 5x/day and tia qhs 2. Start Pred forte bid OD 3. Start atropine bid OD F/u 4 weeks to check on resolution. Dago Gutierrez MD [facility] AT [address] Mailcode: [place] [phone] documented in this encounter Plan of Treatment Not on filedocumented as of this encounter Visit Diagnoses + + | Diagnosis | + + | Keratoconus, acute hydrops, right - Primary | + + documented in this encounter"
--- OUTSIDE RECORDS SUMMARY | ~2020-07-22 | XMS | Encounter Summary ---
Demographics + + + | Address | [address] | | | [place] [address] | + + + | Home Phone | | + + + | Preferred Language | Unknown | + + + | Marital Status | Single | + + + | Nondenominational Affiliation | Unknown | + + + | Race | or | + + + | Ethnic Group | Not or | + + + Author + + + | Author | [facility] | + + + | [...] Team Providers + +------+ + | Care Duplicating Machine Operator Name | Role | Phone | + +------+ + | Marc Agee MD | PCP | | + +------+ + Reason for Visit + +--------+ + | Reason | Onset | Comments | | | Date | | + +--------+ + | Refill Request | 02/05/ | | | | 2019 | | + +--------+ + Encounter Details +--------+--------+ + + + | Date | Type | Department | Care Team | Description | +--------+--------+ + + + | 02/05/ | Refill | [facility] | Surekha Johnson OD | Refill Request | | 2019 | | [place]/Ophthalmol | [address] | | | | | ogy at [facility] [address] | [place], [place] | | | | | [facility] | [address] | | | | | Health and Healing, | [phone] | | | | | | | | | | | Floor [place], [place] | | | | | | [address] | | | | | | [phone] | | | +--------+--------+ + + + [...]
--- OUTSIDE RECORDS SUMMARY | ~2020-07-22 | XMS | Encounter Summary ---
Demographics + + + | Address | [address] | | | [place] [address] | + + + | Home Phone | | + + + | Preferred Language | Unknown | + + + | Marital Status | Single | + + + | Hindu Affiliation | Unknown | + + + | Race | or | + + + | Ethnic Group | Not or | + + + Author + + + | Author | [facility] | + + + | Organization [...] Team Providers + +------+ + | Care Development Geologist Name | Role | Phone | + [...] MD | | | | | | [facility] | [address] | | | | | | [place], [place] | [place] | | | | | | [address] | [address] | | | | | | | [place], [place] | | | | | | | [address] | | | | | | | Phone: | | | | | | | [phone] | | | | | | | Fax: | | | | | | | [phone] | +--------+--------+ + + + + Encounter Details +--------+---------+ + + + | Date | Type | Department | Care Team | Description | +--------+---------+ + + + | 06/28/ | Office | [facility] | Nam Trujillo, | Keratoconus, | | 2016 | Visit | [place] [facility] at | [address] | bilateral (Primary | | | | [place] [address] | [address] | Dx); Keratoconus, | | | | [address] | [address] [place] | acute hydrops, right | | | | Eye [place], [address] | [address] | | | | | floor [place], [place] | | | | | | [phone] | | | +--------+---------+ + + + [...] documented as of this encounter Progress Notes Nam Trujillo MD - 06/28/2016 12:02 PM PDTFormatting of this note might be different fr om the original. Cornea Division Progress Note 06/28/2016 Juanita Garcia is a 21 y.o. female who returns for follow up. Chief Complaint Patient presents with Follow-up visit RTC for overdue f/u KCN and hydrops. Eye is feeling much better. Some irritation in the mor nings still. Whiteness has improved and it is bulging less. Vision slightly improved. Not we aring CL. Nanci drops QID and Ointment QHS, PF BID OD, Atropine Daily, Timolol BID OD. Pain: 0 ROS: Medications, allergies, medical, surgical and family [...] into the right eye two times daily. timolol Instill 1 drop into the right eye two times daily. Current Outpatient Prescriptions (Other) Medication Sig naproxen Take 1 tablet by mouth two times daily. sodium chloride Rx: 0.9% Sodium chloride inhalation solution, 5ml. Tray of 100; refill for 3 boxes Sig: Fill scleral lens completely before insertion into eyes [facility]#: [id number] All else unless noted was neg. (fever, wt. loss, ENT, cardiovascular, pulmonary, GI, urinar y, neurologic, endocrine, bleeding/blood disorders, AIDS/HIV, cancer/tumors, arthritis) I O Psychologist Attestation: Lcay Westbrook, performed the above history, medications, allergi es, as well as performed elements noted in the Base Ophthalmology Exam. Examination: Base Exam Visual Acuity (Snellen - Linear) Right Left Dist sc CF @ 5' NT Dist ph sc 20/150 Tonometry (Tonopen, 12:13 PM) Right Left Pressure 13 NT Neuro/Psych Oriented x3: Yes Mood/Affect: Normal Slit Lamp and Fundus Exam External Exam Right Left External Normal Normal Slit Lamp Exam Right Left Lids/Lashes 1+MGD 1+MGD Conjunctiva/Sclera White and quiet White and quiet Cornea Linear dense Apical Scarring tr stromal edema now, no MCE. No epi defect 2+Vogt st wilfredo, inferior bowing and thinning with apical scar/ Overlying scleral lens in place Anterior Chamber Deep and quiet Deep and quiet Iris Normal Normal Lens Clear Clear Fundus Exam Right Left Vitreous Normal Normal Assessment: Juanita Wolf-Parul is a 21 y.o. female with 1. Keratoconus OU, Hydrops OD, apical scar OU - Last seen and diagnosed with hydrops OD on 05/25/[address] Gutierrez, - Hydrops much improved since last visit, symptoms improved and edema resolving 2. H/o Systemic Allergies - not active at this time Plan: - Decrease Nanci drops BID and Ointment QHS - Continue PF BID OD for 1 week then stop - Stop Atropine Daily - StopTimolol BID OD to help with edema - Will need Repeat lens fit when edema completely resolved and if BCVA is not adequate will consider PKP Follow up: RTC 2-3 weeks Nam Trujillo MD [facility] AT [place] [id number] [facility] Mailcode: [place] [address] [facility] License #: [id number] WILVER #: [id number] documented in this e ncounter Plan of Treatment Not on filedocumented as of this encounter Visit Diagnoses + + | Diagnosis | + + | Keratoconus, bilateral - Primary | + + | Keratoconus, acute hydrops, right | + + documented in this encounter"
--- OUTSIDE RECORDS SUMMARY | ~2020-07-22 | XMS | Encounter Summary ---
Demographics + + + | Address | [address] | | | [place] [address] | + + + | Home Phone | | + + + | Preferred Language | Unknown | + + + | Marital Status | Single | + + + | Yazdanism Affiliation | Unknown | + + + | Race | or | + + + | Ethnic Group | Not or | + + + Author + + + | Author | [facility] | + + + | Organization | [facility] | + + + | Address | Unknown | + + + | Phone | Unavailable | + + + Support + + +---------+ + | Name | Relationship | Address | Phone | + + +---------+ + | Lorie Teran | ECON | Unknown | | + + +---------+ + Care Team Providers + +------+ + | Care Mobile Home Lot Utility Worker Name | Role | Phone | + +------+ + | Marc Agee MD | PCP | | + +------+ + Reason for Visit + + + | Reason | Comments | + + + | Medical Eye | | | Examination | | + + + | Contact Lens | | | Evaluation | | + + + Office Visit - E/M Services (Routine) +--------+--------+ + + + + | Status | Reason | Specialty | Diagnoses / | Referred By | Referred To | | | | | Procedures | Contact | Contact | +--------+--------+ + + + + | Closed | | Ophthalmology | Diagnoses | Non-[facility] | Joseph, | | | | | | Epic Dept | Ellis, OD | | | | | Keratoconus, | | [address] | | | | | unstable, | | Ave | | | | | unspecified | | [place], [place] | | | | | eye | | [address] | +--------+--------+ + + + + Encounter Details +--------+---------+ + + + | Date | Type | Department | Care Team | Description | +--------+---------+ + + + | 01/10/ | Office | [facility] | Ellis Ruiz, | Keratoconus, | | 2016 | Visit | [place]/Ophthalmol | OD | bilateral (Primary | | | | ogy at [facility] [address] | | Dx); Corneal scar | | | | [address] [facility] | | and opacity | | | | [facility], | | | | | | Building | | | | | | Floor [place], [place] | | | | | | [address] | | | | | | [phone] | | | +--------+---------+ + + + [...] documented as of this encounter Progress Notes Ellis Ruiz, OD - 01/10/2017 2:00 PM PSTFormatting of this note might be different fro m the original. Dx#2 05/26/15 RH Lens design Rx OAD/CT OZ LCZ SLZ material Tint LE Custom Stable Elite 45.00 -8.75-1.00*150 Toric Anil @30R 15.8 stand -1/-4 XO Blue Lens Hogshead Liner: [place] Contax OR VA Fit OD No lens OS +/-0.50 20/ni Good apposition to sclera. Central clearance minimum of 50 over scar, FL s hows area of touch superior to scar. . 2-300 clearance elsewhere. Good limbal clearance. Mod erate wetting of surface after blink. Dx# Lens design Rx OAD/CT OZ LCZ SLZ material Tint RE Custom Stable elite 45.00 -4.00 15.8 Stand stand Extra Clear Lens Hogshead Liner: [place] Contax OR VA Fit OD -7.75-2.5*105 (-8.50) -> -7.00 20/40 (20/40) 350 central clearance over scar, 100 clearance over superior nasal cornea, limbal z one with 100-150 clearance, inferior mild tutu apposition to sclera Dx#1 01/10/2017 SM Lens design Rx OAD/CT OZ LCZ SLZ material Tint RE Custom Stable Elite 46.00 -12.00 15.8 1. flat +2/-2 extra clear LE Custom Stable Elite 46.00 -9.75-1.00*150 Toric Anil @30R 15.8 stand +2/-2 extra Blue Lens Hogshead Liner: Saulo Laura Chief Complaint Patient presents with Medical Eye Examination Contact Lens Evaluation Not wearing Scleral lens OD due to hydrops episode. Has not worn lens since last [facility] visit . OS is working great per patient. Still comfortable and vision is stable most of the time. Would like refit for OD lens. Recommended per Dr. Gutierrez, to fit when edema clears. 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 No ophthamicAgents medications on file See EPIC notes for Ophthalmology Exam Findings Reviewed systems for: fever, wt. loss, ENT, cardiovascular, pulmonary, GI, urinary, neurolo gic, endocrine, bleeding/blood disorders, AIDS/HIV, cancer/tumors, arthritis - all were nega tive except as noted above. ASSESSMENT: 1. Keratoconus OU with irregular astigmatism causing uncorrectable blur thru spectacle lens es 2. Hydrops OD, possible OS as well corneal scarring and opacity OU. 3. No scleral lens since hydrops OD 4. OD refit with new scleral lens. Achieved optimal vision at 20/40 level. 5. OS lens with apical touch, also refit to reduce possible future complications. 6. Anterior segment is stable OU. PLAN: 1. Order new GP lens(es) per below. Mail lenses to patient 2. After visit summary printed and given today, cost of fit and lenses estimated . The [facility] ient understands this process takes time and several visits. These costs may not be covered fully by their insurance company and that they are responsible for any non-covered services , percentages and/or materials.Warranty period expires 90 days from initial lens order. Ap proximately on 90 days from 01/10/2017. The warranty period does NOT reset with each lens ord ered during the warranty period. 3. Informed patient on the importance of return for follow up. 4. RTC 2- 3 weeks for MTCL management Dx#1 01/10/2017 SM Lens design bc Rx OAD/CT OZ LCZ SLZ material Tint RE Custom Stable Elite 46.00 -12.00 15.8 1. flat +2/-2 extra clear LE Custom Stable Elite 46.00 -9.75-1.00*150 Toric Anil @30R 15.8 stand +2/-2 extra Blue Lens Hogshead Liner: Saulo Laura documented in this en counter Plan of Treatment Not on filedocumented as of this encounter Procedures + +--------+ + + + | Procedure Name | Priori | Date/Time | Associated Diagnosis | Comments | | | ty | | | | + +--------+ + + + | SC FITTING CONTACT | Routin | 01/10/2017 | Keratoconus, | | | LENS FOR MGMT | e | 4:01 PM | bilateral | | | KERATOCONUS, INITIAL | | PST | | | | FITTNG | | | | | + +--------+ + + + documented in this encounter Visit Diagnoses + + | Diagnosis | + + | Keratoconus, bilateral - Primary | + + | Corneal scar and opacity Corneal opacity, unspecified | + + documented in this encounter"
--- OUTSIDE RECORDS SUMMARY | ~2020-07-22 | XMS | Encounter Summary ---
Demographics + + + | Address | [address] | | | [place] [address] | + + + | Home Phone | | + + + | Preferred Language | Unknown | + + + | Marital Status | Single | + + + | Hindu Affiliation | 1073 | + + + | Race | Unknown | + + + | Ethnic Group | Unknown | + + + Author + + + | Author | [facility] | | | and [place] | + + + | Organization | [facility] | | | [...] Team Providers + +------+ + | Care Molasses Coloring Operator Name | Role | Phone | + +------+ + | Lexis Verdugo NP | PCP | | + +------+ + Reason for Referral Evaluate & Treat (Routine) +--------+ + + + + + | Status | Reason | Specialty | Diagnoses / | Referred By | Referred To | | | | | Procedures | Contact | Contact | +--------+ + + + + + | Closed | Specialty | | Diagnoses | Andrew, | | | | Services | Services | | Jann | | | | Required | | care and | Bill | | | | | | examination | MD Sam | | | | | | | [address] | | | | | | | [place] | | | | | | | [place] | | | | | | | [address] | | | | | | | Phone: | | | | | | | [phone] | | +--------+ + + + + + Evaluate & Treat (Routine) +--------+ + + + + + | Status | Reason | Specialty | Diagnoses / | Referred By | Referred To | | | | | Procedures | Contact | Contact | +--------+ + + + + + | Closed | Specialty | | Diagnoses | Andrew, | | | | Services | and | | Jann | | | | Required | | care and | Bill | | | | | | examination | MD Sam | | | | | | | [address] | | | | | | | [place] | | | | | | | [place] | | | | | | | [address] | | | | | | | Phone: | | | | | | | [phone] | | +--------+ + + + + + Reason for Visit + + + [...] + + + + | 11/07/ | Hospital | [facility] | Jann Morales | care and | | 2017 - | Encounter | [facility] | Bill Vargas MD | examination (Primary | | | | [address] | [address] | Dx) | | 11/09/ | | [place] | [place] | | | 2016 | | [address] | [address] | | | | | [phone] | [phone] | | +--------+ + + + + [...] Date of Discharge: 11/09/2017 ATTENDING CLINICIAN: Jann Vargas H* PRIMARY DRILL SERGEANT: Lexis Verdugo NP HISTORY OF PRESENT ILLNESS 22 y.o. 40w3d presented for labor. HOSPITAL COURSE: Juanita Garcia is a 22 y.o.-year-old, now female (Estimated Date of Deliv mary lou: 11/04/17) who had a delivered by Vaginal, Spontaneous Delivery . At 11/07/2017 1522 ,Juanita bore a living female 3.816 kg (8 lb 6.6 oz) infant, . scores were 8 /9 at one [...] selected administration types on file for this [facility]. FOLLOWUP: 6 weeks PRECAUTIONS: Pelvic rest for 6 weeks DIET: Regular Electronically Signed by: Jann Morales MD 11/09/2017 8:23 Prakash ashby in this encounter Discharge Instructions Instructions Jann [...] they are stable. A nurse or other ealthcare provider will observe you as you rest. [...] anus), an ice pack can h elp. care While still in the hospital or center, you ll learn how to hold and feed your baby. You willalso be given instructions on how to care for your baby. This includes bathing an d feeding. Preparing to go home You may be anxious to go home as soon as possible. Before you and your baby go home, a [facility] provider will check to be sure you [...] lower leg Chest pain Date Last Reviewed: 06/13/201519996301-2315 [employer]. [address] [place] [id number]. All righ ts reserved. This information is [...] Signed by: Jann Morales MD 11/09/2017 8:21 ardy, Jann Vargas MD - 11/08/2017 9:04 AM PSTObstetrics Progress [...] DATE: 11/07/2017 8:16 REASON FOR ADMISSION: labor FREEZING ROOM WORKER HISTORY: OB History Para Term AB Living [...] moderate Accels: present Decels: absent CAT: 1 [place]: 3-4 in 10 minutes Vaginal Exam Dilation: [...] with significant other and baby. lan of [facility] - Joanna Mendez RN - 11/09/2017 6:53 [...] continue to reinforce educatio n. lan of Care - Ashlee Valentin RN - 11/08/2017 7:47 PM PSTProblem: Patient [...] valu e, urine output values and trend. MD reports it is okay to not restart [...] and IV removed, cath tip intact. Warm warmer packs and warm blankets applied. El ectronically signed by Celena Valentin RN at 11/08/2017 12:15 PM PSTPlan of Ayanna Major RN - 11/08/2017 9:48 AM PSTFoley removed, FF , light flow. patient up to shower wit h steady gait. lan of [place] Romero RN - 11/08/2017 9:12 AM Aditi Morales at bedside to remove vaginal p [...] Pt attentiv e to baby lan of Tripp Lynch RN - 11/07/2017 8:57 PM [id number]) assumed care, assessment done...WNLpt den ies pain, nausea or any complaints. IV to saline lock., pt eating dinner..Electronically sig augustina by Tripp Phillips RN at 11/07/2017 9:02 PM PSTPlan of Celena Major RN - 11/07/2017 7:30 PM PSTProblem: Patient [...] bottle f eeding baby per her request. [facility] Celena Valentin RN - 11/07/2017 7:20 [...] regarding plan for the evening. Plan of Celena Major RN - 11/07/2017 4:45 PM PSTpatient transferred [...] Information for the patient's : Mohit Garcia [[id number]] Delivery Date: 11/07/2017 Delivery Time: 1522 Baby: [...] 11/07/2017 3:38 PM PSTRepair in progress lan Celena Peres RN - 11/07/2017 3:06 PM PSTMD at bedside. Patient positioned to push. MD gowned and patient instructed on pushing. 1516: patient pushing effectively with contractions. 1522: Head delivers and shoulders and body follow easily, cord allowed to pulsate then clam ped. Baby placed on maternal abdomen and received by baby RN. lan of Celena Major RN - 11/07/2017 2:0 5 PM PSTpatient assisted out of Jacuzzi .Patient reports "I feel like I need to push". Jasmi n assisted immediatly to bed and SVE performed and is now 8, 90% and 1. enrollment management coordinator notified. Patient instructed by this Rn to [...] Lisa Swenson RN at 10/13 10:04 AM PSTLisa Parham RN - 11/07/2017 8:20 AM PSTAmnisure sample obtained and sent to lab. Cervical exam with some change from last check in the offic e, light bloody show noted. 10 :03 AM PSTPlan Lisa Robertson RN - 11/07/2017 8:16 AM PSTPresents to labor and delivery with c/o leaking of clear fluids since 439 today, also contractions since 0500 states pain [...] | | | Cells | | | [facility] | | | | | | MEDICAL | | | | | | CENTER - | | | | | | LABORATORY | | + + + + + + | Red Blood | 3.22 (L) | 3.70 - 5.20 | [facility] | | | Cells | | M/uL | [facility] | | | | | | [...] | MPV | 8.7 | fL | [facility] | | | [...] | + + + + + | [facility] | [address] | [place] | [phone] | | [facility] | | [address] | | | - LABORATORY | | [...] | + + + + + | [facility] | [address] | [place] | [phone] | | [facility] | | [address] | | | - LABORATORY | | [...] [facility] | | | | | | [facility] | | | | | | MEDICAL | | | | | | CENTER - | | | | | | BLOOD BANK | | + + + + + + | Rh Type | Positive | | [facility] | | | | | | [facility] | | | | | | MEDICAL | | | | | | CENTER - | | | | | | BLOOD BANK | | + + + + + + | Antibody | Negative | | [facility] | | | Screen | | | [facility] | | | | | | MED[facility] | | | | | | [place] - | | | | | | [...] ST. | [address] | [place] | | | [facility] | | [address] | | | - BLOOD BANK | | | | + + + + + documented in this encounter Visit Diagnoses + + | Diagnosis | + + | care and examination - Primary Routine follow-up | + + | Laceration of vagina, initial encounter | + + documented in this encounter Administered Medications + +--------+ [...] PST | | | | | Starting Sun11/07/17 at 1841, | | | | | [...] +---+---+ | | | +---+---+ + +-------+ +-------+---+ + | hydrOXYzine hydrochloride | Given | 11/07/20 | 25 mg | | Deltoid- | | (VISTARIL) injection 25 mg 25 | | 17 9:57 | | | Right | | mg, Intramuscular, ONCE, Wed | | AM PST | | | | | 11/07/17 at 1015, For 1 dose, For | | | | | | | IM use only., | | | | | | + +-------+ +-------+---+ + +---+---+ | | | +---+---+ + [...] | ibuprofen (ADVIL,MOTRIN) tablet | Given | 11/08/20 | 800 mg | | | | 800 mg 800 mg, Oral, EVERY 8 | | 17 5:29 | | | | | HOURS PRN, Pain, Starting Wed | | PM PST | | | | | 11/07/17 at 1841, If urine output | | | | | | | is less than 240 mL/8 hours (30 | | | | | | | mL/hr) or if signs of bleeding, | | | | | | | contact MD and hold ibuprofen., | | | | | | | | | | | | | + +-------+ +--------+---+---+ +-------+ +--------+---+---+ | Given | 11/08/20 | 800 mg | | | | | 17 9:39 | | | | | | AM PST | | | | +-------+ +--------+---+---+ | Given | 11/07/20 | 800 mg | | | | | 17 10:28 | | | | | | PM PST | | | | +-------+ +--------+---+---+ +---+---+ | | | +---+---+ + +---------+ +---+-------+---+ | lactated ringers (LR) infusion | New Bag | 11/07/20 | | 125 | | | at 125 mL/hr, Intravenous, | | 17 2:30 | | mL/hr | | | CONTINUOUS, Starting 11/07/17 | | PM PST | | | | | at 1445, Labor and Delivery | | | | | | + +---------+ +---+-------+---+ +---+---+ | | | +---+---+ + +---------+ + +-------+---+ | oxytocin in saline (PITOCIN) 30 | New Bag | 11/07/20 | 350 | 350 | | | units/500 mL (60 dorian-units/mL) | | 17 3:23 | dorian-un | mL/hr | | | infusion 0-999 dorian-units/min | | PM PST | its/min | | | | (0-999 mL/hr), at 0-999 mL/hr, | | | | | | | Intravenous, TITRATED, Starting | | | | | | | 11/07/17 at 1445, Low Dose | | | | | | | (Cervical Ripening) Management: | | | | | | | Dose 1-4 mU/min. Begin infusion | | | | | | | at 1 mU/min for 60 minutes, | | | | | | | Increase to 2 mU/min for 60 | | | | | | | minutes, Increase to 4 mU/min and | | | | | | | continue at this level until | | | | | | | Brown score of 7 or more. | | | | | | | Maximum dose for cervical | | | | | | | ripening = 4mU/min. Standard | | | | | | | (Augmentation/Induction) | | | | | | | Management: Dose 0-40 mU/min. | | | | | | | Begin infusion at 1-2 mU/minute. | | | | | | | Increase at no greater than 2 | | | | | | | mU/min every 30 minutes, until | | | | | | | adequate labor. Maximum standard | | | | | | | dose for augmentation/induction | | | | | | | = 20 mU/min. Call provider to | | | | | | | increase above 20 mU/min. Do not | | | | | | | increase above 40 mU/min. Do not | | | | | | | increase rate if there is | | | | | | | tachysystole ( > 5 contractions | | | | | | | in 10 minutes averaged over 30 | | | | | | | minutes) or concern regarding | | | | | | | tracing. For tachysystole, | | | | | | | indications or increased | | | | | | | baseline uterine tone, notify | | | | | | | provider and stop or decrease | | | | | | | oxytocin infusion per unit policy | | | | | | | until the indication has ceased. | | | | | | | Restart the infusion per policy | | | | | | | or at 50% or less of the previous | | | | | | | rate. Third Stage | | | | | | | Management/Immediate : | | | | | | | Dose 0-999 mU/min. Vaginal | | | | | | | delivery: After delivery of | | | | | | | anterior shoulder or placenta, | | | | | | | 350 mL/hr x hour, then 100 | | | | | | | mL/hr x 3.5 hours. May stop after | | | | | | | 4 hours post-delivery. Titrate | | | | | | | to control bleeding. May | | | | | | | discontinue if fundus firm, | | | | | | | bladder not distended and patient | | | | | | | tolerating oral fluids and pain | | | | | | | meds. delivery: | | | | | | | Anesthesia will manage oxytocin | | | | | | | intraoperatively. Post anesthesia | | | | | | | care, 350 mL/hr x hour, then | | | | | | | 100 mL/hr x 3.5 hours. May stop | | | | | | | after 4 hours post-delivery. | | | | | | | Titrate to control bleeding. May | | | | | | | discontinue if fundus firm, | | | | | | | bladder not distended and patient | | | | | | | tolerating oral fluids and pain | | | | | | | meds., Use oxytocin for | | | | | | | management of: Third stage, Labor | | | | | | | and Delivery | | | | | | + +---------+ + +-------+---+ +---+---+ | | | +---+---+ + +---------+ + +-------+---+ | penicillin G potassium 5 | New Bag | 11/07/20 | 5 | 100 | | | Million Units in sodium chloride | | 17 2:35 | Million | mL/hr | | | 0.9% 100 mL IVPB 5 Million | | PM PST | Units | | | | Units, Intravenous, Administer | | | | | | | over 60 Minutes, ONCE, Sun | | | | | | | 11/07/17 at 1445, For 1 dose, | | | | | | | Activate system and mix before | | | | | | | use., Labor and Delivery, | | | | | | | Indications: GBS Prophylaxis | | | | | | + +---------+ + +-------+---+ +---+---+ | | | +---+---+ + +-------+ [...] +---+---+ +---+---+ | | | +---+---+ + +---------+ +--------+-------+---+ | sodium chloride 0.9% (NS) bolus | New Bag | 11/08/20 | 1,000 | 500 | | | 1,000 mL 1,000 mL, Intravenous, | | 17 10:38 | mLs | mL/hr | | | Administer over 2 Hours, ONCE, | | AM PST | | | | | [place] 11/08/17 at 0930, For 1 dose | | | | | | + +---------+ +--------+-------+---+ +---+---+ | | | +---+---+ + +-------+ [...]
--- OUTSIDE RECORDS SUMMARY | ~2020-07-22 | XMS | Encounter Summary ---
Demographics + + + | Address | [address] | | | [place] [address] | + + + | Home Phone | | + + + | Preferred Language | Unknown | + + + | Marital Status | Single | + + + | Congregation Affiliation | Unknown | + + + | Race | or | + + + | Ethnic Group | Not or | + + + Author + + + | Author | [facility] | + + + | Organization | [facility] | + + + | Address | Unknown | + + + | Phone | Unavailable | + + + Support + + +---------+ + | Name | Relationship | Address | Phone | + + +---------+ + | Lorie Teran | ECON | Unknown | | + + +---------+ + Care Team Providers + +------+ + | Care Kier Operator Name | Role | Phone | [...] | | | | [address] | Tami Mckeon MD | | | | | | [facility] | [address] | | | | | | [place], [place] | [address] | | | | | | [address] | [address] | | | | | | | [place], [place] | | | | | | | [address] | | | | | | | Phone: | | | | | | | [phone] | | | | | | | Fax: | | | | | | | [phone] | +--------+--------+ + + + + Encounter Details +--------+---------+ + + + | Date | Type | Department | Care Team | Description | +--------+---------+ + + + | 10/11/ | Office | [facility] | Matt, | Keratoconus of both | | 2017 | Visit | [place] [facility] | Tami Mckeon MD [address] | eyes (Primary Dx); | | | | [address] | Keratoconus, | | | | [place] [address] | [place], [place] | bilateral; Corneal | | | | Eye [place], [facility] | [address] | scar and opacity | | | | floor [place], [place] | [phone] | | | | | [address] | [...] encounter Progress Notes Tami Velasquez MD - 10/11/2017 4:15 PM PSTFormatting of this note might be differ ent from the original. [facility] Division Progress Note 10/11/2017 Juanita Garcia is a 22 y.o. female who returns for follow up Chief Complaint Patient presents with Follow-up visit RTC for 3 month f/u for KCN and hydrops Pt states OS comfort is good, has been wearing CL in left eye for 1 month now and doing wel l. Occasionally OS vision is blurry, pt has not seen another provider for CL re-fit as suggest ed last visit. Pain: 0 ROS: Medications, allergies, medical, surgical and family history were reviewed by me at th is visit utilizing [facility] patient history form and Epic patient history pertinent positives: No past medical history on file. No past surgical history on file. Family History Problem Relation Cancer Mother Additional Family History Neg Hx great great grandfather, Glaucoma History Smoking Status Never Smoker Smokeless Tobacco Not on file No Known Allergies Current Outpatient Prescriptions (Other) Medication Sig sodium chloride Rx: 0.9% Sodium chloride inhalation solution, 5ml. Tray of 100; refill for 3 boxes Sig: Fill scleral lens completely before insertion into eyes [facility]#: [id number] All else unless noted was neg. (fever, wt. loss, ENT, cardiovascular, pulmonary, GI, urinar y, neurologic, endocrine, bleeding/blood disorders, AIDS/HIV, cancer/tumors, arthritis) Financial Consultant Attestation: I, Madhuri Gregorio, performed and reviewed the above history, medica tions, allergies, as well as performed elements noted in the Base Ophthalmology Exam. Examination: Base Exam Visual Acuity (Snellen - Linear) Right Left Dist cc 20/70 -1 20/50 -1+2 Dist ph cc 20/30 -1 20/30 +2 Correction: Contacts Tonometry (Tonopen, 4:58 PM) Right Left Pressure 14 15 Slit Lamp and Fundus Exam External Exam Right Left External Normal Normal Slit Lamp Exam Right Left Lids/Lashes Floppy, Ezcema, reactive ptosis, LL laxity Conjunctiva/Sclera White and quiet, racial melanosis White and quiet, racial melanosis Cornea t, central linear scar w/ underlying endo stria, no epi defects or edema today Whit er,as compared to OD, linear scar, underlying endo stria, no epi defects or edema Anterior Chamber Deep and quiet Deep and quiet Iris Normal Normal Lens Clear Clear Vitreous Normal Normal IMPRESSION: Juanita Garcia is a 21 y.o. female with 1. Keratoconus OU h/o Hydrops OU , apical scar OU - Last seen and diagnosed with hydrops OD on 05/25/[address] Velasquez, - Hydrops resolved, residual scar ou - pt is content with vision wants to continue with contact lenses Recent Hydrops OS (05/2017)--seen by Roberto López who reinitiation cylopleia and topical pred now with impressive linear scar and Descemet tear OS-- now resolved 3. H/o Systemic Allergies - not active at this time PLAN: - Advised f/u with Dr. Ruiz to re-fit ctl or with local provider. - OK to wear current lens OU FOLLOW-UP: - Could see Art Geible ([place]) in the future if this is more convenient. RTC- 1 year I, Ganga Garnica, am functioning as a scribe for Dr. Tami Velasquez MD, PhD. I have personally seen and examined this patient. I agree with the notes entered by the Ak ribjack. TAMI VELASQUEZ MD [facility] [address] Mailcode: [place] [address] documented in this encounter Plan of Treatment Not on filedocumented as of this encounter Visit Diagnoses + + | Diagnosis | + + | Keratoconus of both eyes - Primary Keratoconus, unspecified | + + | Keratoconus, bilateral | + + | Corneal scar and opacity Corneal opacity, unspecified | + + documented in this encounter"
--- OUTSIDE RECORDS SUMMARY | ~2020-07-22 | XMS | Encounter Summary ---
Demographics + + + | Address | [address] | | | [place] [address] | + + + | Home Phone [...] Author + + + | Author | Counts Include [facility] | + + + | Organization | [facility] | + + + | Address | Unknown | + + + | Phone | Unavailable | + + + Support + + +---------+ + | Name | Relationship | Address | Phone | + + +---------+ + | Lorie Teran | ECON | Unknown | | + + +---------+ + Care Team Providers + +------+ + | Care Dustless Operator Name | Role | Phone | [...] | | | | | Hema | [facility] [place] | | | | | | Bl[address] | [address] | | | | | | [place], [place] | | | | | | | [address] | | | | | | | Phone: | | | | | | | [phone] | | | | | | | Fax: | | | | | | | [phone] | | +--------+--------+ + + + + Encounter Details +--------+---------+ + + + | Date | Type | Department | Care Team | Description | +--------+---------+ + + + | 01/04/ | Office | [facility] | Madhuri Ceron, OD | Keratoconus of both | | 2018 | Visit | [place] | | eyes (Primary Dx) | | | | ogy at [facility] [address] | | | | | [address] [facility] | | | | | | [facility], | | | | | | Building | | | | | | Floor [place], [place] | | | | | | [address] | | | | | | [phone] | | | +--------+---------+ + + + [...] of this encounter Patient Instructions Patient Instructions Madhuri Ceron, OD - 01/04/2018 3:00 PM PSTContact Lens Management, Fitting Policies and Professional Fees About Us [facility] [place] has specialists in every aspect of eye care, including contact lenses. Our department specializes in medical contact lenses and hard to fit contact lens wearers. The management and fitting of contact lenses requires additional training and expertise; es pecially when it comes to fitting medically necessary contact lenses. We are happy to see a nyone wishing to be seen but because of our focus on hard-to-fit patients, our billing polic ies may be a little different than what you would find at your local eye clinic. Contact Lens Fitting & Management The contact lens fitting and management is an additional service from the eye examination a nd will be done every year for contact lens wearers. This service can range from $100 -$300 for new vision patients and $300-$500 for new medical patients depending on the lens prescr ibed and the complexity of the fit. If you are a retuning patient with no problems or johns es to your prescription a $50 contact lens management fee may be applied instead. The contact lens fitting will include the initial assessment and diagnostic evaluation or y our eye s physiological characteristics, an initial lens prescription, any application and removal training needed, and two follow up appointments. In most cases, with medically nece ssary contacts additional follow-up visits are needed and will be subject to an additional o ffice visit charge. Every contact lens has the potential to cause damage to your eye and i n extreme cases this can result in permanent vision loss. It is important to return for lawanda eduled follow up-visits and to follow the care instructions outlined by your provider. Custom Contact Lens Orders Once an initial lens prescription has been written we require verification from the insuran ce of coverage or payment before we can place an order. All lens orders, from the initial o rder date, come with a 90 day remake period in which we can make additional adjustments and changes if needed. It is important that you return for follow-up visits within these 90 days . All warranty lenses ordered must be returned to us within this 90 day period or you may be charged an additional fee for unreturned lenses. Specialty orders that come in a vial MU ST be returned in the correct vial to receive credit. It is very important that you keep al l vials until your prescription has been finalized. Insurance and Medically Necessary Contact Lenses Unfortunately, many insurance carriers do not have coverage for medically necessary contact s. For the few carriers that do, a predetermination is sometimes required before coverage w ill be granted. If this is the case, we CANNOT place an order until we have an authorizatio n number; otherwise, the insurance will not cover the lenses even if an approval is received . Please be aware that with most insurance companies, if coverage is granted, this fee will be applied towards your deductible and co-insurance. Any remaining balance from the lens o r fitting fee cost not covered by insurance will be patient responsibility. If you have que stions regarding your insurance plan we encourage you to contact your insurance company scott delgadillo. Canceling an Order If, for any reason, you or your provider decide to discontinue with contact lenses all lens es must be returned to us within the 90 day warranty period. If you return all lenses withi n this time the cost of the lenses minus any production/material costs or shipping charges w ill be refunded. The contact lens fitting fee and any additional office charges incurred du ring the fitting process are nonrefundable. Estimated costs do not include office visits, follow ups or co-pays You will be responsible for all professional services rendered and material costs. Estimated cost of fitting procedure: $500 Estimated cost of lenses: $450/lens (varies depends on curvatures required). If you have any questions regarding the process or medically necessary contact lenses pleas e contact our office or ask the doctor at your next visit. Thank you for your time and atten tion. documented in this encounter Progress Notes Madhuri Ceron, OD - 01/04/2018 3:00 PM PSTFormatting of this note might be different from t he original. Dx#1 01/10/2017 SM Lens design bc Rx OAD/CT OZ LCZ SLZ material Tint RE Custom Stable Elite 46.00 -12.00 15.8 1. flat +2/-2 extra clear LE Custom Stable Elite 46.00 -9.75-1.00*150 Toric Anil @30R 15.8 stand +2/-2 extra Blue Lens Chief Cook: Valley Contax [place] VA Fit OD +1.00 20/40-2 300 central clearance, central nasal over hydrops scar possible touch, mar kings 45 deg left, edge lift adeuate but nasal and temporal ring after removal OS -1.00 20/80 250 central clearance, markings 30 deg right, limbal zone, edge lift adeqaut e 360, ring after removal Dx#1 KV Lens design bc Rx OAD/CT OZ LCZ SLZ material Tint RE Custom Stable Elite 46.50 -11.50 15.8 1 flat +3/-2 extra clear LE Custom Stable Elite 46.00 -10.75-1.97f808 Toric Anil @30R 15.8 stand +3/-2 extra Blue Lens Chief Cook: Saulo Contax Chief Complaint Patient presents with Medical Eye Examination 22yo F c h/o KCN OU presents for CL fitting. Reports OD CL feels "small" Current scleral lenses are 2 years old, using [place] conditioning solution. (-) burning, itching, tearing, redness, pain, flashes, floaters OU (-) FLORES, d iplopia No ophthamicAgents medications on file 1. Keratoconus OU 2. h/o Hydrops OU , apical scar [...] segment healthy, no contraindications to CL wear 5. Current lenses scratched, possible touch OD PLAN: 1. Discussed risk/benefit/cost of contact lens wear & fitting process. AVS printed and give n today, cost of lens prescribing and lenses estimated . The patient understands this proc ess takes time and several visits. These costs may/may not be covered fully by their insura [employer] company and that they are repsonsible for any non-covered services and/or materials. 2. Order new GP lenses as per below. 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
--- OUTSIDE RECORDS SUMMARY | ~2020-07-22 | XMS | Encounter Summary ---
Demographics + + + | Address | [address] | | | [place] [address] | + + + | Home Phone | | + + + | Preferred Language | Unknown | + + + | Marital Status | Single | + + + | Alevism Affiliation | Unknown | + + + | Race | or | + + + | Ethnic Group | Not or | + + + Author + + + | Author | [facility] | + + + | Organization | [facility] | + + + | Address | Unknown | + + + | Phone | Unavailable | + + + Support + + +---------+ + | Name | Relationship | Address | Phone | + + +---------+ + | Lorie Teran | ECON | Unknown | | + + +---------+ + Care Team Providers + +------+ + | Care Storeroom Clerk Name | Role | Phone | + +------+ + | Marc Agee MD | PCP | | + +------+ + Encounter Details +--------+ + + + + | Date | Type | Department | Care Team | Description | +--------+ + + + + | 01/16/ | Telephone | [facility] | Ellis Ruiz, | | | 2017 | | [place] | OD | | | | | simon at [facility] [address] | | | | | | [address] [facility] | | | | | | [facility] and He[facility], | | | | | | | | | | | | Floor [place], [place] | | | | | | [address] | | | | | | [phone] | | | +--------+ + + + [...]
--- OUTSIDE RECORDS SUMMARY | ~2020-07-22 | XMS | Encounter Summary ---
Demographics + + + | Address | [address] | | | [place] [address] | + + + | Home Phone | | + + + | Preferred Language | Unknown | + + + | Marital Status | Single | + + + | Taoism Affiliation | Unknown | + + + | Race | or | + + + | Ethnic Group | Not or | + + + Author + + + | Author | [facility] | + + + | Organization | [facility] | + + + | Address | Unknown | + + + | Phone | Unavailable | + + + Support + + +---------+ + | Name | Relationship | Address | Phone | + + +---------+ + | Lorie Teran | ECON | Unknown | | + + +---------+ + Care Team Providers + +------+ + | Care Electrician Apprentice Name | Role | Phone | + +------+ + | Marc Agee MD | PCP | | + +------+ + Encounter Details +--------+ + + + + | Date | Type | Department | Care Team | Description | +--------+ + + + + | 05/09/ | Telephone | [facility] | Matt, | | | 2017 | | [place] [facility] at | Dago Mckeon MD [address] | | | | [address] | [address] [address] | | | | | [place] [address] | [place], [place] | | | | | [facility] [place] | [address] | | | | | floor [place], [place] | [phone] | | | | | [address] | | | +--------+ + + + [...] documented as of this encounter Miscellaneous Notes Telephone Encounter - Surekha Duke - 05/09/2017 11:53 AM PDTErroneous telephon e encounter- Dr. Garcia was connected with the provider -RLR documented in this encounter Plan of Treatment Not on filedocumented as of this encounter Visit Diagnoses Not on filedocumented in this encounter"
--- OUTSIDE RECORDS SUMMARY | ~2020-07-22 | XMS | Encounter Summary ---
Demographics + + + | Address | [address] | | | [place] [address] | + + + | Home Phone | | + + + | Preferred Language | Unknown | + + + | Marital Status | Single | + + + | Yazidism Affiliation | Unknown | + + + | Race | or | + + + | Ethnic Group | Not or | + + + Author + + + | Author | [facility] | + + + | Organization | [facility] | + + + | Address | Unknown | + + + | Phone | Unavailable | + + + Support + + +---------+ + | Name | Relationship | Address | Phone | + + +---------+ + | Lorie Teran | ECON | Unknown | | + + +---------+ + Care Team Providers + +------+ + | Care Director Asset Name | Role | Phone | + +------+ + | Marc Agee MD | PCP | | + +------+ + Reason for Visit + + + | Reason | Comments | + + + | Medical Eye | | | Examination | | + + + | Gas-permeable | [...] Closed | | Ophthalmology | Diagnoses | Cei Comp | Habibi, | | | | | | Oph Fac Chh1 | Gisella, OD | | | | | Keratoconus, | [address] | [address] | | | | | unspecified | [address] | [facility] | | | | | | [facility] | [facility], | | | | | | Health and | [place] | | | | | | Healing, | [address] | | | | | | [address], | Phone: | | | | | | 11th Floor | [phone] | | | | | | [place], [place] | Fax: | | | | | | [address] | [phone] | | | | | | Phone: | | | | | | | [phone] | | | | | | | Fax: | | | | | | | [phone] | | +--------+--------+ + + + + Encounter Details +--------+---------+ + + + | Date | Type | Department | Care Team | Description | +--------+---------+ + + + | 03/25/ | Office | [facility] | Gisella Romo, OD | Keratoconus, | | 2014 | Visit | [place]/[facility] | [address] | unspecified (Primary | | | | ogy at [facility] [address], | Dx); Papillary | | | | [address] [facility] | [place] [address] | conjunctivitis | | | | Health and Healing, | [phone] | | | | | [facility] | | | | | | Floor [place], [place] | | | | | | [address] | | | | | | [phone] | | | +--------+---------+ + + + [...] of this encounter Patient Instructions Patient Instructions Gisella Romo, OD - 03/25/2015 9:47 AM PDT1. Start FML 0.1% twice a da juliana (instill without contact lenses). Shake well! 2. Clean lenses with Mobivery globe cleaner - After removing lenses, apply 1-2 drops of [place] aning and rub the lenses down, before storing in the lens bowls covered in the globe cleaner. Refi ll with fresh solution every day. No reusing last nights solution. 3. NO TAP water on lenses at all. 4. Fill lenses with saline solution (pink vials). documented in this encounter Progress Notes Gisella Romo, OD - 03/25/2015 9:14 AM PDTFormatting of this note might be different from t he original. Habitual Lens: Lens design BC Rx OAD/CT OZ PC1/Corneal zone PC2/Limbal zone PC3/Scleral zone PC4/ Edge zone material Tint RE Robb 46.00 -9.00 15.80 8.40 7.54 (1.7) 8.7 (0.9) 12.75 (0.7) 14.25 (0.4) Ty ro-97 (plasma) clear LE Robb 46.50 -9.50 15.80 8.40 7.46 (1.7) 8.7 (0.9) 12.75 (0.7) 14.25 (0.4) Ty ro-97 (plasma) blue Lens Vice President For Instruction: [employer] [place] VA Fit OD -0.50 20/NI Large area of apical apposition, minimal limbal clearance, good scleral appo sition OS +/-0.50 20/NI Large area of apical apposition, minimal limbal clearance, good scleral ap position Refit Dx# Lens design bc Rx OAD/CT OZ LCZ SLZ material Tint RE Custom Stable 43.00 -2.00 15.8 Stand 1 flat XO Clear LE Custom Stable 45.00 -4.00 15.8 stand 1 flat XO Blue Lens Vice President For Instruction: Saulo Valentín [place] VA Fit OD -4.75 20/40 400 clearance with minimal apical clearance, full limbal clearance, trace ho rizontal impingement with vertical alignment OS -4.50 20/50 350 central clearance with 250 apical, full limbal clearance, tight landing greatest horizontally Dx#1 03/25/2015 RH Lens design bc Rx OAD/CT OZ LCZ SLZ material Tint RE Custom Stable Elite 44.00 -3.00 15.8 Stand -1/-4 XO Clear LE Custom Stable Elite 45.00 -4.00 15.8 stand -1/-4 XO Blue Lens Vice President For Instruction: Saulo Valentín Chief Complaint Patient presents with Medical Eye Examination Gas-permeable contact lens Chip in the right lens. Vision is good. Comfort is good. Some eye redness due to rubbing e yes-eyes are itchy. Eczema in eyes. Cleans the lenses with water and q-tip. Soak in Biotrue solution. Fills lens with Biotrue. ophthamicAgents medications Medication Sig Dispense Refill fluorometholone 0.1 % ophthalmic drops,suspension Instill 1 drop into both eyes two yomaira es daily. Indications: Allergic Conjunctivitis 10 mL 0 See EPIC notes for Ophthalmology Exam Findings Reviewed systems for: fever, wt. loss, ENT, cardiovascular, pulmonary, GI, urinary, neurolo gic, endocrine, bleeding/blood disorders, AIDS/HIV, cancer/tumors, arthritis - all were nega tive except as noted above. ASSESSMENT: Keratoconus OU with irregular astigmatism causing uncorrectable blur thru spectacle lenses. Moderate apical swirl staining due to flat fitting scleral lenses OU Moderate conjunctival inflammation OU - papilla, chemosis Good comfort, vision and fit with custom stable lenses OU Posterior segment unremarkable OU PLAN: 1. DWP findings. Refit lenses to improve fit and decrease stress on cornea. Causing increas ed irritation and redness. Medically necessary contact lenses are indicated to correct for s evere distortion and aniseikonia. 2. Order new lens per below. Ship to patient. DWP FF ($332 + cost of lenses) and fitting po licy. 3. Start new cleaning solution. Use [place] simplus. D/c using Biotrue. Reviewed proper lens wear and care. NO tap water. 4. Start FML 0.1% BID OU. Apply without lenses in. Shake well. 5. Consider topography after refit due to obvious corneal warpage 6. Return to clinic in approximately 3 weeks wearing new lens(es) for cornea health and con tact lens evaluation. Dx#1 03/25/2015 RH Lens design bc Rx OAD/CT OZ LCZ SLZ material Tint RE Custom Stable Elite 44.00 -3.00 15.8 Stand -1/-4 XO Clear LE Custom Stable Elite 45.00 -4.00 15.8 stand -1/-4 XO Blue Lens Vice President For Instruction: Saulo Saucedaectronically signed by Gisella Romo OD at 03/25/2015 10:4 6 AM PDTdocumented in this encounter Plan of Treatment Not on filedocumented as of this encounter Procedures + +--------+ + + + | Procedure Name | Priori | Date/Time | Associated Diagnosis | Comments | | | ty | | | | + +--------+ + + + | [place] FITTING CONTACT | Routin | 03/25/2015 | Keratoconus, | | | LENS FOR MGMT | e | 10:40 AM | unspecified | | | KERATOCONUS, INITIAL | | PDT | Papillary | | | FITTNG | | | conjunctivitis | | + +--------+ + + + documented in this encounter Visit Diagnoses + + | Diagnosis | + + | Keratoconus, unspecified - Primary | + + | Papillary conjunctivitis | + + documented in this encounter"
--- OUTSIDE RECORDS SUMMARY | ~2020-07-22 | XMS | Encounter Summary ---
Demographics + + + | Address | [address] | | | [place] [address] | + + + | Home Phone | | + + + | Preferred Language | Unknown | + + + | Marital Status | Single | + + + | Baptism Affiliation | [id number] | + + + | Race | Unknown | + + + | Ethnic Group | Unknown | + + + Author + + + | Author | [facility] | | | and [place] | + + + | Organization | [facility] | | | [...] Team Providers + +------+ + | Care Implant Polisher Name | Role | Phone | + +------+ + PCP | Unavailable | + +------+ + Encounter Details +--------+ + + + + | Date | Type | Department | Care Team | Description | +--------+ + + + + | 04/09/ | Hospital | [facility] | | | | 1993 | Encounter | [facility] | | | | | | [facility] [address] | | | | | | [place] | | | | | | [address] | | | | | | [phone] | | | +--------+ + + + [...]
--- OUTSIDE RECORDS SUMMARY | ~2020-07-22 | XMS | Encounter Summary ---
Demographics + + + | Address | [address] | | | [place] [address] | + + + | Home Phone [...] Author + + + | Author | [facility] | + + + | Organization | [facility] | + + + | Address | Unknown | + + + | Phone | Unavailable | + + + Support + + +---------+ + | Name | Relationship | Address | Phone | + + +---------+ + | Lorie Teran | ECON | Unknown | | + + +---------+ + Care Team Providers + +------+ + | Care Orthopedic Shoes Salesperson Name | Role | Phone | + +------+ + | Marc Agee MD | PCP | | + +------+ + Reason for Visit + + + | Reason | Comments | + + + | Contact lens | | + + + Encounter Details +--------+---------+ + + + | Date | Type | Department | Care Team | Description | +--------+---------+ + + + | 06/21/ | Office | [facility] | Ellis Ruiz, | Keratoconus, | | 2015 | Visit | [place]/Ophthalmol | OD | unspecified (Primary | | | | ogy at [facility] [address] | | Dx); Irregular | | | | [address] [facility] | | astigmatism, | | | | Health and Healing, | | bilateral | | | | Building | | | | | | Floor [place], [place] | | | | | | [address] | | | | | | [phone] | | | +--------+---------+ + + + [...] encounter Progress Notes Ellis Ruiz, OD - 06/21/2015 10:25 AM PDTFormatting of this note might be different fro m the original. Dx#1 05/26/15 RH Lens design bc Rx OAD/CT OZ LCZ SLZ material Tint RE Custom Stable Elite 44.00 -3.00 15.8 Stand -1/-4 XO Clear LE Custom Stable Elite 45.00 -4.00 15.8 stand -1/-4 XO Blue Lens Sausage Cutter: Saulo Contax [place] VA Fit OD -4.75-2.00*170 20/30 200 um AP. Toric @60L. 300-400+ clearance elsewhere. Good limbal cl earance 360, no blanching 360 OS -5.00-1.25*150 20/50+ 250 um ap. Toric @30 R, 200 um AP. Toric @60L. 300-400+ clearance elsewhere. Good limbal clearance 360, no blanching 360 Wear time 5 hours today. Dx#2 05/26/15 RH Lens design bc Rx OAD/CT OZ LCZ SLZ material Tint RE Custom Stable Elite 44.00 -7.50-1.50*170 Toric Anil @ 60L 15.8 Stand -1/-4 XO Clear LE Custom Stable Elite 45.00 -8.75-1.00*150 Toric Anil @30R 15.8 stand -1/-4 XO Blue Lens Sausage Cutter: Saulo Laura Chief Complaint Patient presents with Contact lens MTCL check, these lenses are very comfortable, and much easier to get in than previous riley ses. Patient able to wear all day. Vision is poor in both eyes. ophthamicAgents medications Medication Sig Dispense Refill fluorometholone [...] irregular astigmatism causing uncorrectable blur thru spectacle lenses Scleral lens over refraction needing toricity. No apical staining OU. Patient corneal damage has resolved since previous visit. Lens fit adequate. PLAN: 1. Warranty exchange OU for scleral lenses with new RX. Mail to patient. If no problems wit h new lenses, patient is ok to RTC in 6 months for MTCL. Patient was informed that she nee ds to return original set of lenses or will be charged. Dx#2 05/26/15 RH Lens design bc Rx OAD/CT OZ LCZ SLZ material Tint RE Custom Stable Elite 44.00 -7.50-1.50*170 Toric Anil @ 60L 15.8 Stand -1/-4 XO Clear LE Custom Stable Elite 45.00 -8.75-1.00*150 Toric Anil @30R 15.8 stand -1/-4 XO Blue Lens Sausage Cutter: Saulo Laura documented in this en counter Plan of Treatment Not on filedocumented as of this encounter Visit Diagnoses + + | Diagnosis | + + | Keratoconus, unspecified - Primary | + + | Irregular astigmatism, bilateral | + + documented in this encounter"
--- OUTSIDE RECORDS SUMMARY | ~2020-07-22 | XMS | Encounter Summary ---
Demographics + + + | Address | [address] | | | [place] [address] | + + + | Home Phone | | + + + | Preferred Language | Unknown | + + + | Marital Status | Single | + + + | Tenriism Affiliation | Unknown | + + + | Race | or | + + + | Ethnic Group | Not or | + + + Author + + + | Author | [facility] | + + + | Organization | [facility] | + + + | Address | Unknown | + + + | Phone | Unavailable | + + + Support + + +---------+ + | Name | Relationship | Address | Phone | + + +---------+ + | Lorie Teran | ECON | Unknown | | + + +---------+ + Care Team Providers + +------+ + | Care Mud Analysis Supervisor Name | Role | Phone | + +------+ + | Phuong Martino | PCP | | + +------+ + Encounter Details +--------+ + + + + | Date | Type | Department | Care Team | Description | +--------+ + + + + | 07/31/ | Telephone | [facility] | [place], | | | 2019 | | [place] [facility] at | Dago Mckeon MD [address] | | | | | [place] [facility] | [address] | | | | | [address] | [place], [place] | | | | | Eye [place], [facility] | [address] | | | | | floor [place], [place] | [phone] | | | | | [address] | | | +--------+ + + + [...] this encounter Miscellaneous Notes Telephone Encounter - Alix Naranjo - 08/05/2019 1:40 PM PDTCalled patient again to confir m symptoms. Patient did not pick up driver, left voicemail requesting call back.Electronically sign ed by Alix Naranjo at 08/05/2019 1:41 PM PDTTelephone Encounter - Alix Naranjo - 9 4:09 PM PDTCalled patient again. Patient did not pick up driver, left another voicemail.Electron yonathany signed by Alix Naranjo at 07/31/2019 4:09 PM PDTTelephone Encounter - Alix Naranjo - 07/31/2019 10:59 AM PDTPatient did not pick up driver, left voicemail requesting call back.Electr onically signed by Alix Naranjo at 07/31/2019 10:59 AM PDTTelephone Encounter - Portia Galindo - 07/31/2019 10:14 AM PDTPt called to report white film over left eye, which began this morning Eye affected: left Pain: 6/10 and jumps to a 10 in the light Describe: pressure Redness: yes Swelling: yes Drainage: yes, watery and feels thick. Changes in vision: doesn't have much vision in this eye, hasnt gotten worse Sensitivity to light: extremely Light flashes? no NEW floater? no Curtain over vision? no Have you tried anything to alleviate these symptoms: ice pack for swelling. Additional information: Symptoms started as soon as the patient woke up. [place]. She called her local doctor and they told her to call our office. Please call and advise. Requesting a call back? yes Call back number: [phone] OK to leave detailed VM? yes Thank you, Guerline documented in this encou nter Plan of Treatment Not on filedocumented as of this encounter Visit Diagnoses Not on filedocumented in this encounter"
--- OUTSIDE RECORDS SUMMARY | ~2020-07-22 | XMS | Encounter Summary ---
Demographics + + + | Address | [address] | | | [place] [address] | + + + | Home Phone | | + + + | Preferred Language | Unknown | + + + | Marital Status | Single | + + + | Pentecostal Affiliation | Unknown | + + + | Race | or | + + + | Ethnic Group | Not or | + + + Author + + + | Author | [facility] | + + + [...] Providers + +------+ + | Care Retail Planner Name | Role | Phone | + +------+ + | Marc Agee MD | PCP | | + +------+ + Reason for Visit + + + | Reason | Comments | + + + | Follow-up visit | | + + + Encounter Details +--------+---------+ + + + | Date | Type | Department | Care Team | Description | +--------+---------+ + + + | 06/28/ | Office | [facility] | [place], | Keratoconus, | | 2017 | Visit | [place] [facility] at | Tami Mckeon MD [address] | bilateral (Primary | | | | [place] [address] | Dx); Keratoconus, | | | | [address] | [place], [place] | acute hydrops, left; | | | | Eye [place], [facility] | [address] | Corneal scar | | | | floor [place], [place] | [phone] | | | | | [address] | [...] encounter Progress Notes Tami Velasquez MD - 06/28/2017 4:15 PM PDTFormatting of this note might be differ ent from the original. [facility] Division Progress Note 06/28/2017 Juanita Garcia is a 22 y.o. female who returns for follow up Chief Complaint Patient presents with Follow-up visit RTC for f/u KCN and hydrops Pt c/o swelling OS, not using gtts since 3 weeks ago Vision fluctuating in OS Pain: 0 ROS: Medications, allergies, medical, surgical [...] lens completely before insertion into eyes [facility]#: [id number] All else unless noted was neg. (fever, wt. loss, ENT, cardiovascular, pulmonary, GI, urinar y, neurologic, endocrine, bleeding/blood disorders, AIDS/HIV, cancer/tumors, arthritis) Clinic Specialist Attestation: Madhuri Westbrook, performed and reviewed the above history, medica tions, allergies, as well as performed elements noted in the Base Ophthalmology Exam. Examination: Base Exam Visual Acuity (Snellen - Linear) Right Left Dist sc CF@3ft Dist cc 20/60 -1 Dist ph cc 20/40 - 20/100 +1 Correction: Contacts Tonometry (Tonopen, 4:46 PM) Right Left Pressure NT 15 Neuro/Psych Oriented x3: Yes Mood/Affect: Normal Slit Lamp and Fundus Exam External Exam Right Left External Normal Normal Slit Lamp Exam Right Left Lids/Lashes 1+MGD 1+MGD Conjunctiva/Sclera White and quiet White and quiet Cornea Linear dense Apical Scarring tr stromal edema now, no MCE. No epi defect, inferior epitheliopathy. Steep cornea 2+Vogt stria, inferior bowing and thinning with apical scar (e xcuvated in appearance). Mild area of compression above scar from scleral lens. Anterior Chamber Deep and quiet Deep and quiet Iris Normal Normal Lens Clear Clear Vitreous Normal Normal Fundus Exam Right Left Disc poor view poor view Macula poor view poor view Assessment: Juanita Garcia is a 21 y.o. female with 1. Keratoconus OU, Hydrops OD, apical scar OU - Last seen and diagnosed with hydrops OD on 05/25/[address] Velasquez, - Hydrops much improved since last visit, symptoms improved and edema resolving Recent Hydrops OS 05/2017--seen by Roberto López who reinitiation cylopleia and topical pred no w with impressive linear scar and Descemet tear OS--resolving Edema. 2. H/o Systemic Allergies - not active at this time PLAN: - HOld Nanci drops BID and Ointment QHS - Hold PF BID OD for 1 week then stop - Hold Atropine Daily - Okay to wear current lense OD, But advised hold OS for 8 more weeks. FOLLOW-UP: Advised f/u with Dr. Ochoa to re-fit ctl after this time or with local provicer. RTC- f/u 3 months, could see Art Geabel (Hardeep Meier) in the future if this is more conveni ent. I, Ganga Garnica, am functioning as a scribe for Dr. Tami Velasquez MD, PhD. I have personally seen and examined this patient. I agree with the notes entered by the Vinnie sidhu. TAMI VELASQUEZ MD [facility] [address] [facility] Mailcode: [place] [phone] documented in this encounter Plan of Treatment Not on filedocumented as of this encounter Visit Diagnoses + + | Diagnosis | + + | Keratoconus, bilateral - Primary | + + | Keratoconus, acute hydrops, left | + + | Corneal scar Corneal opacity, unspecified | + + documented in this encounter"
--- OUTSIDE RECORDS SUMMARY | ~2020-07-22 | XMS | Encounter Summary ---
Demographics + + + | Address | [address] | | | [place] [address] | + + + | Home Phone | | + + + | Preferred Language | Unknown | + + + | Marital Status | Single | + + + | Orthodoxy Affiliation | Unknown | + + + | Race | or | + + + | Ethnic Group | Not or | + + + Author + + + | Author | [facility] | + + + | Organization | [facility] | + + + | Address | Unknown | + + + | Phone | Unavailable | + + + Support + + +---------+ + | Name | Relationship | Address | Phone | + + +---------+ + | Lorie Teran | ECON | Unknown | | + + +---------+ + Care Team Providers + +------+ + | Care Helpdesk Administrator Name | Role | Phone | + +------+ + | Marc Agee MD | PCP | | + +------+ + Reason for Visit + + + | Reason | Comments | + + + | Medical Eye | | | Examination | | + + + Encounter Details +--------+---------+ + + + | Date | Type | Department | Care Team | Description | +--------+---------+ + + + | 02/15/ | Office | [facility] | Madhuri Ceron, OD | Keratoconus of both | | 2018 | Visit | [place]/[facility] | | eyes (Primary Dx); | | | | ogy at [facility] [address] | | Allergic | | | | [address] [facility] | | conjunctivitis of | | | | [facility] and He[facility], | | both eyes | | | | Building | | | | | | Floor [place], [place] | | | | | | [address] | | | | | | [phone] | | | +--------+---------+ + + + [...] documented as of this encounter Progress Notes Madhuri Ceron, OD - 02/15/2018 2:30 PM PDTFormatting of this note might be different from t he original. Dx#1 KV Lens design bc Rx OAD/CT OZ LCZ SLZ material Tint RE Custom Stable Elite 46.50 -11.50 15.8 1 flat +3/-2 extra clear LE Custom Stable Elite 46.00 -10.75-1.01z695 Toric Anil @30R 15.8 stand +3/-2 extra Blue Lens Javascript Web Developer: Saulo Contax [place] VA Fit OD -0.50 20/40-2 300 central clearance, central nasal over hydrops scar possible touch, mar kings 45 deg left, edge lift adeuate OS plano 20/70+2 250 central clearance, markings 30 deg right, limbal zone, edge lift adeqa minto 360, ASSESSMENT: 1. Keratoconus OU with irregular astigmatism [...] no contraindications to CL wear PLAN: 1. Pt instructed and observed in application and removal of contact lens(es). Successfully demonstrated x2 in office. Reviewed lens care, handling, and hygiene. Pt instructed to not s leep, swim, or shower in lenses. Saline Addipak Rx for lens filling sent to pt's pharmacy of choice. Lenses dispensed OU. 2. No changes to GP lenses at this time, finalized CL Fit. 3. Begin Azelastine BID OU. FOLLOW-UP: RTC 1 year for CL eval. [place]hrui [place], [place] [address]308AT Dx#1 KV Lens design bc Rx OAD/CT OZ LCZ SLZ material Tint RE Custom Stable Elite 46.50 -11.50 15.8 1 flat +3/-2 extra clear LE Custom Stable Elite 46.00 -10.75-1.16h239 Toric Anil @30R 15.8 stand +3/-2 extra Blue Lens Javascript Web Developer: Saulo Laura documented in this encou nter Plan of Treatment Not on filedocumented as of this encounter Visit Diagnoses + + | Diagnosis | + + | Keratoconus of both eyes - Primary Keratoconus, unspecified | + + | Allergic conjunctivitis of both eyes Other chronic allergic conjunctivitis | + + documented in this encounter"
[~2020-07-22 19:56] MED LIST: CEPHALEXIN500 MG PO; CIPRO500 MG PO; CLOBETASOL EMOL15 GM TOP; CLOBETASOL PROP15 G1 TOP; MURO-12815 M1 OPTH; MURO-1283.5 GM OPTH; NORCO 5-325 TA1 EACH PO
[2020-07-22] MEDS ORDERED: NEOMYCIN-POLYMY10 M1 OTIC (20:21)
[2020-07-22] MEDS ORDERED: NORCO 5-325 TA1 EACH PO (20:21)
== END 2020-07-22 20:29 | disposition home or self-care (01) ==
LOC: ED 19:56
DX: H60.92 Unspecified otitis externa, left ear (principal)
CPT/HCPCS: 99282

== ENCOUNTER 2021-04-07 18:35 | Inpatient (IN) | payer OTHER ==
[~2021-04-07] VITALS: Ht 167.6 cm; Wt 118.8 kg
[~2021-04-07 18:35] MED LIST changes: +NEOMYCIN-POLYMY10 M1 OTIC
--- NOTE | 2021-04-08 12:42 | PR ---
[facility] [address] [facility] [place], [place] [address] Signed Progress Notes IP Datetime Report Generated by CPN: 04/08/2021 12:41 PROGRESS NOTES: [id number] Impression: Reassuring Heart Rate Plan: Continue Present Management VITAL SIGNS: [id number] Vital Signs: Within Normal Limits EXAM: [id number] Dilatation: 5.0 Effacement: 90 Station: -2 Contractions: rare MEMBRANES: [id number] Membranes Status: Ruptured Amniotic Fluid Color: Clear Comments: Feeling painful contractions, pressure in rectum Rechecked, cervix further effaced but no further dilation yet Epidural ok per pt request Continue present management FETUS A: [id number] FHR Baseline: 140 Variability: Moderate 6-25bpm Accelerations: 15X15 Decelerations: None FHR Category: Category I Presentation: Vertex FETUS B: [id number] Signing Physician: Chanda Good DO Copies: ~ *Electronically Signed* 04/08/21 1241 CHANDA GOOD DO PATIENT NAME: ENCISO ISAI HODGE PROGRESS NOTE DATE OF : [birth year] PHYSICIAN: CHANDA GOOD DO [facility] #: [id number] REPORT IS CONFIDENTIAL AND NOT TO BE RELEASED WITHOUT AUTHORIZATION
--- NOTE | 2021-04-09 10:45 | PR ---
[facility] [address] [facility] [place], [place] [address] Signed PP Progress Notes Datetime Report Generated by CPN: 04/09/2021 10:45 SUBJECTIVE: [id number] Pain: Within Normal Limits Nausea/Vomiting: Denies Flatus: Yes Bowel Movement: No Vital Signs: [id number] Vital Signs: Reviewed; Within Normal Limits Notable Details: BP elevated immediately prior to epidural/delivery, since resolved. Cardiovascular: Normal Respiratory: Normal Abdomen/Uterus: Normal Extremities: Normal Exam Comments: NAD RRR No dyspnea Fundus firm below umbilicus Extremities with trace bilateral edema IMPRESSION/PLAN/PROCEDURES: [id number] Impression: Normal Progression Other Impression: Bottlefeeding Plan: Continue Present Management Procedures: Rubella Progress Notes: PPD #1 s/p Progressing well Hgb 8.8 from 10.2 antepartum, asymptomatic Bottlefeeding baby Undecided on contraception Plan to stay one more night Signing Physician: Chanda Good DO Copies: ~ *Electronically Signed* 04/09/21 1045 CHANDA GOOD DO PATIENT NAME: ENCISO HODGE,ISAI LISA PROGRESS NOTE DATE OF : [birth year] PHYSICIAN: CHANDA GOOD DO RPT #: [id number] REPORT IS CONFIDENTIAL AND NOT TO BE RELEASED WITHOUT AUTHORIZATION
[2021-04-09] MEDS ORDERED: VITAFOL-OB+DHA1 EACH PO (20:30)
--- NOTE | 2021-04-10 07:04 | PR ---
[facility] [address] [place], [place] [address] Signed PP Progress Notes Datetime Report Generated by FRANNIE: 04/10/2021 07:04 SUBJECTIVE: [id number] Pain: Within Normal Limits Nausea/Vomiting: Denies Flatus: Yes Bowel Movement: Yes Vital Signs: [id number] Vital Signs: Reviewed Notable Details: BP @ 1919 appears to be error; repeat 126/64 Cardiovascular: Normal Respiratory: Normal Abdomen/Uterus: Normal Lochia: Normal Extremities: Normal Exam Comments: NAD, sleeping on side, easy to wake RRR No dyspnea Abd SNTND FFBU Extremities trace BLLE edema IMPRESSION/PLAN/PROCEDURES: [id number] Impression: Normal Progression Other Impression: Bottlefeeding Plan: Continue Present Management; Discharge Procedures: Rubella Other Procedures: s/p MMR vaccine Progress Notes: PPD#2 s/p -hgb 9.8 PPD#1, resume oral iron BID -ambulating, voiding, tolerating regular diet -uncertain what she will use for contraception, considering Mirena IUD -bottlefeeding baby -would like to go home today, discharge precautions reviewed Signing Physician: Chanda Good DO Copies: *Electronically Signed* 04/10/21 0704 CHANDA GOOD DO PATIENT NAME: ISAI WATT PROGRESS NOTE DATE OF : 94 PHYSICIAN: CHANDA GOOD DO RPT #: [id number] REPORT IS CONFIDENTIAL AND NOT TO BE RELEASED WITHOUT AUTHORIZATION [address] [place], [place] [address] Signed ~ *Electronically Signed* 04/10/21 0704 CHANDA GOOD DO PATIENT NAME: ISAI WATT PROGRESS NOTE DATE OF : 94 PHYSICIAN: CHANDA GOOD DO RPT #: [id number] REPORT IS CONFIDENTIAL AND NOT TO BE RELEASED WITHOUT AUTHORIZATION
== END 2021-04-10 11:45 | disposition home or self-care (01) | DRG 807 ==
LOC: FBC 04-08 10:40
PROVIDERS: ADMIT Obstetrics & Gynecology; ATTEND Obstetrics & Gynecology
PROC: 10E0XZZ Delivery of Products of Conception, External Approach (ICD-10-PCS; principal; 2021-04-08)
PROC: 10907ZC Drainage of Amniotic Fluid, Therapeutic from Products of Conception, Via Natural or Artificial Opening (ICD-10-PCS; 2021-04-08)
PROC: 00HU33Z Insertion of Infusion Device into Spinal Canal, Percutaneous Approach (ICD-10-PCS; 2021-04-08)
PROC: 3E0R3BZ Introduction of Anesthetic Agent into Spinal Canal, Percutaneous Approach (ICD-10-PCS; 2021-04-08)
PROC: 3E0134Z Introduction of Serum, Toxoid and Vaccine into Subcutaneous Tissue, Percutaneous Approach (ICD-10-PCS; 2021-04-09)
DX: O24.420 Gestational diabetes mellitus in childbirth, diet controlled (principal); Z37.0 Single live birth; Z20.822 Contact with and (suspected) exposure to COVID-19; Z3A.39 39 weeks gestation of pregnancy; O62.3 Precipitate labor; O99.214 Obesity complicating childbirth; E66.9 Obesity, unspecified; O99.02 Anemia complicating childbirth; D64.9 Anemia, unspecified; Z23 Encounter for immunization
CPT/HCPCS: 01960; 36415; 85027; 90707; C9803; J2590; J2795; J3010; J7121; U0003

== ENCOUNTER 2021-08-05 13:18 | Emergency (ER) | payer OTHER ==
[~2021-08-05] VITALS: Ht 182.9 cm; Wt 118.8 kg
[~2021-08-05 13:18] MED LIST changes: +VITAFOL-OB+DHA1 EACH PO
--- NOTE | 2021-08-05 18:53 | EKG ---
[facility] [address] [facility] [place], [place] [address] Signed Normal sinus rhythm Normal ECG No previous ECGs available Confirmed by EVERARDO POTTER DO ([id number]) on 08/05/2021 6:53:04 PM Electronically Signed By: EVERARDO POTTER DO 08/05/211852 PATIENT NAME: ZARIA HODGEISAI Electrocardiogram DATE OF : [birth year] PHYSICIAN: EVERARDO POTTER DO REPORT #: [id number] REPORT IS CONFIDENTIAL AND NOT TO BE RELEASED WITHOUT AUTHORIZATION
[2021-08-05] MEDS ORDERED: PRILOSEC OTC20 MG PO (19:26)
[2021-08-05] MEDS ORDERED: ONDANSETRON ODT4 MG SL (19:26)
== END 2021-08-05 20:16 | disposition home or self-care (01) ==
LOC: ED 13:18
DX: K29.70 Gastritis, unspecified, without bleeding (principal); H18.609 Keratoconus, unspecified, unspecified eye
CPT/HCPCS: 71045; 80053; 80500; 83690; 83735; 84484; 85025; 85379; 93005; 93010; 96374; 96375; 99285-25; J1885; J2060; J2405

== ENCOUNTER 2023-10-15 16:20 | Emergency (ER) | payer OTHER ==
[~2023-10-15] VITALS: Ht 152.4 cm; Wt 123.4 kg
[~2023-10-15 16:20] MED LIST changes: +ONDANSETRON ODT4 MG SL; +PRILOSEC OTC20 MG PO
[2023-10-15] MEDS ORDERED: MAXITROL EYE DRO5 ML OPTH (19:32)
[2023-10-15 20:05] VITALS: BP 125/61
== END 2023-10-15 20:05 | disposition home or self-care (01) ==
LOC: ED 16:20
DX: H18.823 Corneal disorder due to contact lens, bilateral (principal); Z79.899 Other long term (current) drug therapy

== ENCOUNTER 2023-10-17 09:49 | Emergency (ER) | payer OTHER ==
[~2023-10-17] VITALS: Ht 170.2 cm; Wt 124.7 kg
[~2023-10-17 09:49] MED LIST changes: +MAXITROL EYE DRO5 ML OPTH
--- OUTSIDE RECORDS SUMMARY | 2023-10-17 09:56 | XMS ---
PreManage Notification: ISAI WATT Security Photographer Helper Events 1 event(s) in the past 18 months Most recent security events: Elopement at [facility] 08/21/2023 16:17 - Patient eloped before treatment completed. - Patient with suicidal and/or homicidal ideations eloped. - Patient eloped with IV in place. Details: Patient LWBS CRITERIA MET - [facility] - 2 Visits in 30 Days CARE PROVIDERS -, [place]- Dentist: Power Supply Engineer [facility] PHONE: [phone] Casie has no Care Guidelines for this patient. Frank[place] VISIT COUNT (12 MO.) 3 [facility] [address] [place] [address] Nicole Liang (Hardeep Meier) TOTAL 4 NOTE: Visits indicate total known visits. ED/UCC VISIT TRACKING (12 MO.) 10/17/2023 09:50 [facility] [place] TYPE: Emergency COMPLAINT: - R EYE NO SEE, LOWER EXTREMITIES/CHEST SKIN PROBLEM 10/15/2023 16:21 [facility] [place] TYPE: Emergency COMPLAINT: - R EYE PAIN DIAGNOSES: - Corneal disorder due to contact lens, bilateral - Other bed bug exterminator (current) drug therapy - Other visual disturbances 08[facility]21[facility]2023 18:39 [facility] [place] DIAGNOSES: - Unspecified ovarian cyst, right side - Abdominal Pain - poss appendix,poss gall bladder 08/21/2023 16:17 [facility] [place] TYPE: Emergency COMPLAINT: - ABDOMINAL PAIN INPATIENT VISIT TRACKING (12 MO.) No inpatient visits to display in this time frame [email or web address]
[2023-10-17] MEDS ORDERED: CLOBETASOL PROP15 GM (10:03)
[2023-10-17] MEDS ORDERED: HYDROCORT 2.5%-30 GM TOP (11:53)
[2023-10-17] MEDS ORDERED: CIPROFLOXACIN2.5 M1 OU (11:53)
[2023-10-17 12:16] VITALS: BP 160/71
== END 2023-10-17 12:10 | disposition home or self-care (01) ==
LOC: ED 09:49
DX: H18.821 Corneal disorder due to contact lens, right eye (principal)
CPT/HCPCS: 99283; A9270

== ENCOUNTER 2023-10-20 10:54 | Emergency (ER) | payer OTHER ==
[~2023-10-20] VITALS: Ht 170.2 cm; Wt 124.3 kg
[~2023-10-20 10:54] MED LIST changes: +CIPROFLOXACIN2.5 M1 OU; +CLOBETASOL PROP15 GM; +HYDROCORT 2.5%-30 GM TOP
--- OUTSIDE RECORDS SUMMARY | 2023-10-20 11:02 | XMS ---
PreManage Notification: ISAI WATT Security Culture Manager Events 1 event(s) in the past 18 months Most recent security events: Elopement at [facility] 08/21/2023 16:17 - Patient eloped before treatment completed. - Patient with suicidal and/or homicidal ideations eloped. - Patient eloped with IV in place. Details: Patient LWBS CRITERIA MET - [facility] - 2 Visits in 30 Days CARE PROVIDERS -[place]- Dentist: Extractor Machine Operator [facility] PHONE: [phone] Casie has no Care Guidelines for this patient. [place] VISIT COUNT (12 MO.) 4 [facility] [address] [place] [address] Nicole Liang (Hardeep Meier) TOTAL 5 NOTE: Visits indicate total known visits. ED/UCC VISIT TRACKING (12 MO.) 10/20/2023 10:54 [facility] [place] TYPE: Emergency COMPLAINT: - EYE PAIN 10/17/2023 09:50 [facility] [place] TYPE: Emergency COMPLAINT: - R EYE NO SEE, LOWER EXTREMITIES/CHEST SKIN PROBLEM DIAGNOSES: - Corneal disorder due to contact lens, right eye - Other visual disturbances 10/15/2023 16:21 [facility] [place] TYPE: Emergency COMPLAINT: - R EYE PAIN DIAGNOSES: - Corneal disorder due to contact lens, bilateral - Other extermination supervisor (current) drug therapy - Other visual disturbances [facility]23 18[facility]Hardeep Meier[facility] TYPE: Emergency DIAGNOSES: - Unspecified ovarian cyst, right side - Abdominal Pain - poss appendix,poss gall bladder 08/21/2023 16:17 [facility] [place] [facility] COMPLAINT: - ABDOMINAL PAIN INPATIENT VISIT TRACKING (12 MO.) No inpatient visits to display in this time frame [email or web address]
[2023-10-20 14:07] VITALS: BP 146/99
== END 2023-10-20 14:07 | disposition home or self-care (01) ==
LOC: ED 10:54
DX: H57.13 Ocular pain, bilateral (principal); H18.603 Keratoconus, unspecified, bilateral
CPT/HCPCS: 99283; A9270